=== PATIENT | male | born 1965 | race Caucasian/White ===

== ENCOUNTER 2016-09-29 13:19 | Emergency (ER) | payer BC ==
[2016-09-29 13:38] VITALS: BP 118/69
--- NOTE | 2016-09-29 14:07 | UC ---
Respiratory Complaint HPI - HPI Summary HPI Summary: 50 yo male with asthma/asa allergy and nasal polyposis presents with cough sinus pressure and pain as well as wheezing for over a week no fever chills - History of Current Complaint Chief Complaint: UCGeneralIllness Stated Complaint: SINUSES Time Seen by Provider: 09/29/16 13:48 Hx Obtained From: Patient Onset/Duration: Sudden Onset, Gradual Onset Timing: Constant Severity Initially: Moderate Pain Intensity: 3 Pain Scale Used: 0-10 Numeric Character: Cough: Productive Aggravating Factors: Nothing Alleviating Factors: Bronchodilator Associated Signs And Symptoms: Positive: Wheezing, Nasal Congestion, Sinus Discomfort - Allergies/Home Medications Allergies/Adverse Reactions: Allergies Allergy/AdvReac Type Severity Reaction Status Date / Time Amoxicillin [From Augmentin] Allergy Intermediate Hives Verified 09/29/16 13:39 Clarithromycin [From Biaxin] Allergy Intermediate Hives Verified 09/29/16 13:39 Clavulanic Acid Allergy Intermediate Hives Verified 09/29/16 13:39 [From Augmentin] Levofloxacin [From Levaquin] Allergy Intermediate tendonitis Verified 09/29/16 13:39 Aspirin AdvReac Swelling Verified 09/29/16 13:39 PMH/Surg Hx/FS Hx/Imm Hx Previously Healthy: Yes Endocrine History Of: Denies: Diabetes Cardiovascular History Of: Denies: Hypertension, Pacemaker/ICD Respiratory History Of: Reports: Asthma GI/ History Of: Denies: Renal Disease - Surgical History Surgical History: Yes Surgery Procedure, Year, and Place: sinus surgery, bilateral FESS surgeries for sinus, deviated septum, umb. hernia repair, lt shoulder surgery 07/2012; undescended testicle;LASIK - Family History Known Family History: Positive: Cardiac Disease - Social History Alcohol Use: Occasionally Substance Use Type: None Smoking Status (MU): Former Smoker - Immunization History Most Recent Influenza Vaccination: June 2016 Review of Systems Constitutional: Negative Skin: Negative Eyes: Negative ENT: Nasal Discharge Respiratory: Cough Cardiovascular: Negative Gastrointestinal: Negative Genitourinary: Negative Motor: Negative Neurovascular: Negative Musculoskeletal: Negative Neurological: Negative Psychological: Negative All Other Systems Reviewed And Are Negative: Yes Physical Exam Triage Information Reviewed: Yes Appearance: Well-Appearing, No Pain Distress, Well-Nourished Vital Signs: Initial Vital Signs Temp 97.3 F 09/29/16 13:34 Pulse 63 09/29/16 13:34 Resp 18 09/29/16 13:34 BP 118/69 09/29/16 13:34 Pulse Ox 97 09/29/16 13:34 Eyes: Positive: Conjunctiva Clear ENT: Positive: Hearing grossly normal, Nasal congestion, Nasal drainage, TMs normal, Other: - bilateral max sinus tenderness. Negative: Trismus, Muffled/ hoarse voice Dental: Negative: Dental Fracture @ Neck: Positive: Nontender, No Lymphadenopathy Respiratory: Positive: No respiratory distress, No accessory muscle use, Wheezing - with forced expiration only. Negative: Respiratory distress, Decreased breath sounds Cardiovascular: Positive: RRR, No Murmur, Pulses Normal Abdominal Exam: Normal Musculoskeletal: Positive: ROM Intact, No Edema Neurological Exam: Normal Psychological Exam: Normal Skin Exam: Normal UC Diagnostic Evaluation - Laboratory O2 Sat by Pulse Oximetry: 97 Respiratory Course/Dx - Differential Dx/Diagnosis Provider Diagnoses: acute sinusitis. bronchospasm Discharge - Discharge Plan Condition: Stable Disposition: HOME Prescriptions: DOXYcycline CAP(*) [DOXYcycline 100MG CAP(*)] 100 mg PO BID #28 cap Dexamethasone TAB* [Decadron TAB*] 4 mg PO DAILY #4 tab Patient Education Materials: Sinusitis (ED), Bronchospasm (ED) Referrals: Evan Werner MD [Primary Care Provider] - If Needed
== END 2016-09-29 14:03 | disposition home or self-care (01) ==
LOC: UCCORT 13:19
DX: J01.90 Acute sinusitis, unspecified (principal); J98.01 Acute bronchospasm; Z87.891 Personal history of nicotine dependence; Z88.1 Allergy status to other antibiotic agents; Z88.6 Allergy status to analgesic agent
CPT/HCPCS: 99212; G0463

== ENCOUNTER 2017-02-08 16:23 | Emergency (ER) | payer BC ==
[2017-02-08 16:31] VITALS: BP 124/72
--- NOTE | 2017-02-08 16:54 | UC ---
Throat Pain/Nasal Eugenio HPI - HPI Summary HPI Summary: ONE WEEK OF SINUS PRESSURE GREEN MUCUS FACIAL PRESSURE AND HEADACHE. APPOINTMENT WITH DR MALCOLM ON SUNDAY. HISTORY OF FREQUENT SINUS SURGERIES, FREQUENT SINUS INFECTIONS. NO FEVER. NO SORE THROAT. - History of Current Complaint Chief Complaint: UCRespiratory Stated Complaint: SINUS Time Seen by Provider: 02/08/17 16:27 Hx Obtained From: Patient Onset/Duration: Gradual Onset, Lasting Weeks, Still Present Severity: Moderate Cough: Nonproductive Associated Signs & Symptoms: Positive: Sinus Discomfort, Nasal Discharge - Epiglottits Risk Factors Epiglottis Risk Factors: Negative - Allergies/Home Medications Allergies/Adverse Reactions: Allergies Allergy/AdvReac Type Severity Reaction Status Date / Time Amoxicillin [From Augmentin] Allergy Intermediate Hives Verified 02/08/17 16:31 Clarithromycin [From Biaxin] Allergy Intermediate Hives Verified 02/08/17 16:31 Clavulanic Acid Allergy Intermediate Hives Verified 02/08/17 16:31 [From Augmentin] Levofloxacin [From Levaquin] Allergy Intermediate tendonitis Verified 02/08/17 16:31 Aspirin AdvReac Swelling Verified 02/08/17 16:31 PMH/Surg Hx/FS Hx/Imm Hx Previously Healthy: Yes Endocrine History Of: Denies: Diabetes Cardiovascular History Of: Denies: Hypertension, Pacemaker/ICD Respiratory History Of: Reports: Asthma GI/ History Of: Denies: Renal Disease - Surgical History Surgical History: Yes Surgery Procedure, Year, and Place: sinus surgery, bilateral FESS surgeries for sinus, deviated septum, umb. hernia repair, lt shoulder surgery 07/2012; undescended testicle;LASIK EYE SURGERY, LEFT EYE IMPLANT TO HOLD CORNEA IN PLACE (INTACS LENS IMPLANT)SCANNED INTO OTHER FACILITIES REPORTS-SPOKE TO DR LAUGHLIN, HE SAID TO GET ORBIT XRAYS TO BE SURE BUT THINKS ITS AND ACRYLIC SUBSTANCE. - Family History Known Family History: Positive: Cardiac Disease - Social History Occupation: Employed Full-time Lives: With Family Alcohol Use: Rare Substance Use Type: Marijuana Substance Use Comment - Amount & Last Used: occassionally smokes marijuana Smoking Status (MU): Never Smoked Tobacco - Immunization History Most Recent Influenza Vaccination: June 2016 Review of Systems Constitutional: Negative Skin: Negative Eyes: Negative ENT: Nasal Discharge Respiratory: Cough Cardiovascular: Negative Gastrointestinal: Negative Genitourinary: Negative Motor: Negative Neurovascular: Negative Musculoskeletal: Negative Neurological: Negative Psychological: Negative All Other Systems Reviewed And Are Negative: Yes Physical Exam Triage Information Reviewed: Yes Appearance: Well-Appearing, No Pain Distress, Well-Nourished Vital Signs: Initial Vital Signs Temp 97.7 F 02/08/17 16:26 Pulse 66 02/08/17 16:26 Resp 14 02/08/17 16:26 BP 124/72 02/08/17 16:26 Pulse Ox 98 02/08/17 16:26 Vital Signs Reviewed: Yes Eye Exam: Normal Eyes: Positive: Conjunctiva Clear ENT: Positive: Hearing grossly normal, Pharynx normal, Nasal congestion, TM bulging, TM dull Dental Exam: Normal Neck exam: Normal Neck: Positive: Supple, Nontender, No Lymphadenopathy Respiratory: Positive: Chest non-tender, Lungs clear, Normal breath sounds, No respiratory distress, No accessory muscle use, Wheezing - SCANT EXPIRATORY WHEEZING, Expiration Cardiovascular Exam: Normal Cardiovascular: Positive: RRR, No Murmur, Pulses Normal Abdominal Exam: Normal Musculoskeletal Exam: Normal Neurological Exam: Normal Psychological Exam: Normal Skin Exam: Normal Throat Pain/Nasal Course/Dx - Differential Dx/Diagnosis Differential Diagnosis/HQI/PQRI: Otitis Media, Sinusitis, Tonsillitis, URI Provider Diagnoses: SINUSITIS Discharge - Discharge Plan Condition: Stable Disposition: HOME Prescriptions: Azithromycin TAB* [Zithromax TAB (Z-ERICKA) 250 mg #6 tabs] 2 tab PO .TODAY, THEN 1 DAILY #1 ericka Methylprednisolone [Medrol Dosepak 4 MG*] 4 mg PO .SEE ERICKA INSTRUCTION #1 ericka Patient Education Materials: Sinusitis (ED) Referrals: Juan Manuel Malcolm MD [Medical Doctor] - Evan Werner MD [Primary Care Provider] -
== END 2017-02-08 17:03 | disposition home or self-care (01) ==
LOC: UCCORT 16:23
DX: J32.9 Chronic sinusitis, unspecified (principal); J45.909 Unspecified asthma, uncomplicated; Z88.1 Allergy status to other antibiotic agents; Z88.6 Allergy status to analgesic agent; F12.90 Cannabis use, unspecified, uncomplicated
CPT/HCPCS: 99212; G0463

== ENCOUNTER 2017-03-05 20:01 | Emergency (ER) | payer BC ==
[2017-03-05 20:17] VITALS: BP 128/74
[2017-03-05] MEDS ORDERED: DOXYcycline CAP(*) 100 MG PO ONE (20:43)
[2017-03-05] MEDS ORDERED: Phenazopyridine TAB* 100 MG PO ONE ×2 (20:44→20:45)
--- NOTE | 2017-03-05 20:50 | UC ---
Complaint Male HPI - HPI Summary HPI Summary: 51 yo male with urgency and frequency of urination that started this am no with dysuria no back or abd pain no f/c no n/v/d hx increased PSA needed bx all (-) - History of Current Complaint Chief Complaint: UCGU Stated Complaint: URINARY Time Seen by Provider: 03/05/17 20:28 Hx Obtained From: Patient Onset/Duration: Gradual Onset, Lasting Hours Timing: Constant Severity Initially: Mild Severity Currently: Moderate Pain Intensity: 0 - pain only with urination Pain Scale Used: 0-10 Numeric Location: Penis Character: Burning Aggravating Factor(s): Voiding Alleviating Factor(s): Nothing Associated Signs And Symptoms: Positive: Dysuria - Allergies/Home Medications Allergies/Adverse Reactions: Allergies Allergy/AdvReac Type Severity Reaction Status Date / Time Amoxicillin [From Augmentin] Allergy Intermediate Hives Verified 03/05/17 20:18 Clarithromycin [From Biaxin] Allergy Intermediate Hives Verified 03/05/17 20:18 Clavulanic Acid Allergy Intermediate Hives Verified 03/05/17 20:18 [From Augmentin] Levofloxacin [From Levaquin] Allergy Intermediate tendonitis Verified 03/05/17 20:18 Aspirin AdvReac Swelling Verified 03/05/17 20:18 PMH/Surg Hx/FS Hx/Imm Hx Previously Healthy: Yes Respiratory History: Asthma GI/ History: Gastroesophageal Reflux - Surgical History Surgical History: Yes Surgery Procedure, Year, and Place: sinus surgery, bilateral FESS surgeries for sinus, deviated septum, umb. hernia repair, lt shoulder surgery 07/2012; undescended testicle;LASIK EYE SURGERY, LEFT EYE IMPLANT (INTACS LENS IMPLANT) SCANNED INTO OTHER FACILITIES REPORTS-SPOKE TO DR LAUGHLIN, HE SAID TO GET ORBIT XRAYS TO BE SURE BUT THINKS ITS AND ACRYLIC SUBSTANCE. ( XRAYS DONE 12/27/16 - CLEARED BY DR COLON) - Family History Known Family History: Positive: Cardiac Disease - Social History Alcohol Use: Rare Substance Use Type: Marijuana Substance Use Comment - Amount & Last Used: occassionally smokes marijuana Smoking Status (MU): Never Smoked Tobacco - Immunization History Most Recent Influenza Vaccination: June 2016 Review of Systems Constitutional: Negative Skin: Negative Eyes: Negative ENT: Negative Respiratory: Negative Cardiovascular: Negative Gastrointestinal: Negative Genitourinary: Dysuria, Frequency, Urgency Motor: Negative Neurovascular: Negative Musculoskeletal: Negative Neurological: Negative Psychological: Negative All Other Systems Reviewed And Are Negative: Yes Physical Exam Triage Information Reviewed: Yes Appearance: Well-Appearing, No Pain Distress, Well-Nourished Vital Signs: Initial Vital Signs Temp 98.7 F 03/05/17 20:13 Pulse 54 03/05/17 20:13 Resp 16 03/05/17 20:13 BP 128/74 03/05/17 20:13 Pulse Ox 96 03/05/17 20:13 Vital Signs Reviewed: Yes Eyes: Positive: Conjunctiva Clear ENT: Positive: Hearing grossly normal. Negative: Nasal congestion, Nasal drainage, Trismus, Muffled/hoarse voice Neck: Positive: Supple, Nontender Respiratory: Positive: Lungs clear, Normal breath sounds, No respiratory distress, No accessory muscle use Cardiovascular: Positive: RRR, No Murmur Abdomen Description: Positive: Nontender, Soft, Other: - rectal: prostate enlarged/minimal tenderness Bowel Sounds: Positive: Present Musculoskeletal: Positive: ROM Intact, No Edema Neurological: Positive: Alert Psychological Exam: Normal Skin Exam: Normal Complaint Male Course/Dx - Differential Dx/Diagnosis Provider Diagnoses: dysuria of uncertain cause Discharge - Discharge Plan Condition: Stable Disposition: HOME Prescriptions: DOXYcycline CAP(*) [DOXYcycline 100MG CAP(*)] 100 mg PO BID #12 cap Phenazopyridine TAB* [Pyridium TAB*] 100 mg PO TID #4 tab Patient Education Materials: Dysuria (ED) Referrals: Evan Werner MD [Primary Care Provider] - 2 Days Additional Instructions: despite your symptoms your urine sample was clear a culture is pending recheck in 2-3 days with your MD or urologist recheck sooner for fever/vomiting/back pain
== END 2017-03-05 21:02 | disposition home or self-care (01) ==
LOC: UCCORT 20:01
DX: R30.0 Dysuria (principal); J45.909 Unspecified asthma, uncomplicated; K21.9 Gastro-esophageal reflux disease without esophagitis; Z88.6 Allergy status to analgesic agent; Z88.1 Allergy status to other antibiotic agents; F12.90 Cannabis use, unspecified, uncomplicated
CPT/HCPCS: 87086; 99213; A9270-GY; G0463

== ENCOUNTER 2017-03-20 07:30 | Emergency (ER) | payer BC ==
[2017-03-20 07:46] VITALS: BP 119/69
--- NOTE | 2017-03-20 07:54 | UC ---
Skin Complaint HPI - HPI Summary HPI Summary: 51 YEAR OLD MALE PRESENTS WITH COMPLAINS OF ABSCESS UNDER HIS NECK POST REMOVAL OF MOLE. - History of Current Complaint Chief Complaint: UCSkin Time Seen by Provider: 03/20/17 07:48 Stated Complaint: SKIN COMPLAINT-CHIN - Allergy/Home Medications Allergies/Adverse Reactions: Allergies Allergy/AdvReac Type Severity Reaction Status Date / Time Amoxicillin [From Augmentin] Allergy Intermediate Hives Verified 03/20/17 07:39 Clarithromycin [From Biaxin] Allergy Intermediate Hives Verified 03/20/17 07:39 Clavulanic Acid Allergy Intermediate Hives Verified 03/20/17 07:39 [From Augmentin] Levofloxacin [From Levaquin] Allergy Intermediate tendonitis Verified 03/20/17 07:39 Aspirin AdvReac Swelling Verified 03/20/17 07:39 Review of Systems Constitutional: Negative Skin: Other - ABSCESS UNDER CHIN Eyes: Negative ENT: Negative Respiratory: Negative Cardiovascular: Negative Gastrointestinal: Negative Genitourinary: Negative Motor: Negative Neurovascular: Negative Musculoskeletal: Negative Neurological: Negative Psychological: Negative All Other Systems Reviewed And Are Negative: Yes PMH/Surg Hx/FS Hx/Imm Hx - Surgical History Surgical History: Yes Surgery Procedure, Year, and Place: sinus surgery, bilateral FESS surgeries for sinus, deviated septum, umb. hernia repair, lt shoulder surgery 07/2012; undescended testicle;LASIK EYE SURGERY, LEFT EYE IMPLANT (INTACS LENS IMPLANT) SCANNED INTO OTHER FACILITIES REPORTS-SPOKE TO DR LAUGHLIN, HE SAID TO GET ORBIT XRAYS TO BE SURE BUT THINKS ITS AND ACRYLIC SUBSTANCE. ( XRAYS DONE 12/27/16 - CLEARED BY DR COLON) - Family History Known Family History: Positive: Cardiac Disease - Social History Alcohol Use: Occasionally Substance Use Type: Marijuana Substance Use Comment - Amount & Last Used: occassionally smokes marijuana Smoking Status (MU): Never Smoked Tobacco - Immunization History Most Recent Influenza Vaccination: June 2016 Physical Exam Triage Information Reviewed: Yes Vital Signs: Initial Vital Signs Temp 36.6 C 03/20/17 07:34 Pulse 51 03/20/17 07:34 Resp 14 03/20/17 07:34 BP 119/69 03/20/17 07:34 Pulse Ox 98 03/20/17 07:34 Eye Exam: Normal ENT Exam: Normal Dental Exam: Normal Neck exam: Normal Neck: Positive: 1 Respiratory Exam: Normal Cardiovascular Exam: Normal Abdominal Exam: Normal Musculoskeletal Exam: Normal Neurological Exam: Normal Psychological Exam: Normal Skin Exam: Normal Skin: Positive: Other - ABSCESS UNDER CHIN Course/Dx - Diagnoses Provider Diagnoses: ABSCESS UNDER CHIN Discharge - Discharge Plan Condition: Stable Disposition: HOME Prescriptions: DOXYcycline CAP(*) [DOXYcycline 100MG CAP(*)] 100 mg PO BID #14 cap Mupirocin 2% OINT* [Bactroban 2 % Oint*] 1 applic TOPICAL BID #1 tube Patient Education Materials: Cellulitis (ED) Referrals: Evan Werner MD [Primary Care Provider] - If Needed
== END 2017-03-20 08:00 | disposition home or self-care (01) ==
LOC: UCCORT 07:30
DX: L02.01 Cutaneous abscess of face (principal)
CPT/HCPCS: 99212; G0463

== ENCOUNTER 2017-05-18 07:04 | Emergency (ER) | payer BC ==
--- NOTE | 2017-05-18 07:10 | UC ---
Skin Complaint HPI - HPI Summary HPI Summary: 51 year old male presents with suspicion of foreign body in left index finger. On a side note the patient tried to dig it out. - History of Current Complaint Time Seen by Provider: 05/18/17 07:09 Stated Complaint: FB IN LEFT INDEX FINGER Hx Obtained From: Patient Onset/Duration: Gradual Onset Skin Exposure Onset/Duration: Days Ago Onset Severity: Moderate Current Severity: Moderate Pain Scale Used: 0-10 Numeric - 4 - Allergy/Home Medications Allergies/Adverse Reactions: Allergies Allergy/AdvReac Type Severity Reaction Status Date / Time Amoxicillin [From Augmentin] Allergy Intermediate Hives Verified 03/20/17 07:39 Clarithromycin [From Biaxin] Allergy Intermediate Hives Verified 03/20/17 07:39 Clavulanic Acid Allergy Intermediate Hives Verified 03/20/17 07:39 [From Augmentin] Levofloxacin [From Levaquin] Allergy Intermediate tendonitis Verified 03/20/17 07:39 Aspirin AdvReac Swelling Verified 03/20/17 07:39 Question of Bactrim Allergy Swelling Uncoded 05/18/17 07:38 Review of Systems Constitutional: Negative Skin: Other - LEFT INDEX FINGER SWELLING/PAIN/? FOREIGN BODY Eyes: Negative ENT: Negative Respiratory: Negative Cardiovascular: Negative Gastrointestinal: Negative Genitourinary: Negative Motor: Negative Neurovascular: Negative Musculoskeletal: Negative Neurological: Negative Psychological: Negative All Other Systems Reviewed And Are Negative: Yes PMH/Surg Hx/FS Hx/Imm Hx Previously Healthy: Yes - Surgical History Surgical History: Yes Surgery Procedure, Year, and Place: sinus surgery, bilateral FESS surgeries for sinus, deviated septum, umb. hernia repair, lt shoulder surgery 07/2012; undescended testicle;LASIK EYE SURGERY, LEFT EYE IMPLANT (INTACS LENS IMPLANT) SCANNED INTO OTHER FACILITIES REPORTS-SPOKE TO DR LAUGHLIN, HE SAID TO GET ORBIT XRAYS TO BE SURE BUT THINKS ITS AND ACRYLIC SUBSTANCE. ( XRAYS DONE 12/27/16 - CLEARED BY DR COLON) - Family History Known Family History: Positive: Cardiac Disease - Social History Alcohol Use: Occasionally Substance Use Type: Marijuana Substance Use Comment - Amount & Last Used: occassionally smokes marijuana Smoking Status (MU): Never Smoked Tobacco - Immunization History Most Recent Influenza Vaccination: June 2016 Physical Exam Triage Information Reviewed: Yes Appearance: Well-Appearing Eye Exam: Normal ENT Exam: Normal Dental Exam: Normal Neck exam: Normal Neck: Positive: 1 Respiratory Exam: Normal Cardiovascular Exam: Normal Abdominal Exam: Normal Musculoskeletal Exam: Normal Neurological Exam: Normal Psychological Exam: Normal Skin: Positive: Other - LEFT INDEX FINGER SWELLING/PAIN Course/Dx - Diagnoses Provider Diagnoses: left index finger pain. left index finger swelling Discharge - Discharge Plan Condition: Stable Disposition: HOME Prescriptions: DOXYcycline CAP(*) [DOXYcycline 100MG CAP(*)] 100 mg PO BID #14 cap Mupirocin 2% OINT* [Bactroban 2 % Oint*] 1 applic TOPICAL BID #1 tube Patient Education Materials: Soft Tissue Foreign Body (ED) Referrals: Evan Werner MD [Primary Care Provider] -
[2017-05-18] MEDS ORDERED: Lidocaine/Epineph/Tetraca SOL* (LET solution) 4 ML BTL TOPICAL ONE (07:45)
--- NOTE | 2017-05-18 08:13 | RAD ---
INDICATION: 4 body left index finger. TECHNIQUE: 3 views of the left index finger were obtained. FINDINGS: There is soft tissue swelling adjacent to the distal phalanx. No fracture or radiopaque foreign body is seen. 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 IMPRESSION: NO RADIOPAQUE FOREIGN BODY IS SEEN. IF THIS REMAINS OF CLINICAL CONCERN CONSIDER A SOFT TISSUE ULTRASOUND FOR FURTHER EVALUATION.
[2017-05-18 08:19] VITALS: BP 126/78
[2017-05-18] MEDS ORDERED: Tetan/Diph/Pertus SYR(Tdap)* 0.5 ML SYR(BOOSTRIX) use SYR IM ONE (08:27)
== END 2017-05-18 08:43 | disposition home or self-care (01) ==
LOC: UCCORT 07:04
DX: M79.645 Pain in left finger(s) (principal); M79.89 Other specified soft tissue disorders; Z88.6 Allergy status to analgesic agent; Z88.3 Allergy status to other anti-infective agents; F12.90 Cannabis use, unspecified, uncomplicated
CPT/HCPCS: 73140; 90471; 90715; 99213; G0463

== ENCOUNTER 2017-08-03 07:05 | Emergency (ER) | payer BC ==
--- NOTE | 2017-08-03 07:11 | UC ---
Eye Complaint HPI - HPI Summary HPI Summary: 51 year old male presents with complains of left eye redness and drainage. - History of Current Complaint Stated Complaint: EYE COMPLAINT Time Seen by Provider: 08/03/17 07:10 Hx Obtained From: Patient Onset/Duration: Sudden Onset Timing: Constant Severity Initially: Moderate Severity Currently: Moderate - Allergies/Home Medications Allergies/Adverse Reactions: Allergies Allergy/AdvReac Type Severity Reaction Status Date / Time Amoxicillin [From Augmentin] Allergy Intermediate Hives Verified 08/03/17 07:11 Clarithromycin [From Biaxin] Allergy Intermediate Hives Verified 08/03/17 07:11 Clavulanic Acid Allergy Intermediate Hives Verified 08/03/17 07:11 [From Augmentin] Levofloxacin [From Levaquin] Allergy Intermediate tendonitis Verified 08/03/17 07:11 Aspirin AdvReac Swelling Verified 08/03/17 07:11 Question of Bactrim Allergy Swelling Uncoded 08/03/17 07:11 PMH/Surg Hx/FS Hx/Imm Hx Previously Healthy: Yes - Surgical History Surgical History: Yes Surgery Procedure, Year, and Place: sinus surgery, bilateral FESS surgeries for sinus, deviated septum, umb. hernia repair, lt shoulder surgery 07/2012; undescended testicle;LASIK EYE SURGERY, LEFT EYE IMPLANT (INTACS LENS IMPLANT) SCANNED INTO OTHER FACILITIES REPORTS-SPOKE TO DR LAUGHLIN, HE SAID TO GET ORBIT XRAYS TO BE SURE BUT THINKS ITS AND ACRYLIC SUBSTANCE. ( XRAYS DONE 12/27/16 - CLEARED BY DR COLON) - Family History Known Family History: Positive: Cardiac Disease - Social History Alcohol Use: Occasionally Substance Use Type: None Substance Use Comment - Amount & Last Used: occassionally smokes marijuana Smoking Status (MU): Never Smoked Tobacco - Immunization History Most Recent Influenza Vaccination: June 2016 Most Recent Tetanus Shot: 05/18/17 Review of Systems Constitutional: Negative Skin: Negative Eyes: Eye Redness, Photophobia ENT: Negative Respiratory: Negative Cardiovascular: Negative Gastrointestinal: Negative Genitourinary: Negative Motor: Negative Neurovascular: Negative Musculoskeletal: Negative Neurological: Negative Psychological: Negative All Other Systems Reviewed And Are Negative: Yes Physical Exam Triage Information Reviewed: Yes Vital Signs Reviewed: Yes Eyes: Positive: Conjunctiva Inflamed, Discharge ENT Exam: Normal Dental Exam: Normal Neck exam: Normal Neck: Positive: 1 Respiratory Exam: Normal Cardiovascular Exam: Normal Abdominal Exam: Normal Musculoskeletal Exam: Normal Neurological Exam: Normal Psychological Exam: Normal Skin Exam: Normal Eye Complaint Course/Dx - Differential Dx/Diagnosis Provider Diagnoses: left eye conjunctivitis Discharge - Discharge Plan Condition: Stable Disposition: HOME Prescriptions: Naphazoline W/ Pheniramine [Opcon-A] 1 john LEFT EYE . DIRECTED PRN #1 bottle PRN Reason: Allergy Symptoms Polymyx/Trimethoprim OPTH* [Polytrim OPHTH*] 1 drop BOTH EYES Q6H #1 btl Patient Education Materials: Conjunctivitis (ED) Referrals: Nato Cochran MD [Medical Doctor] - Evan Werner MD [Primary Care Provider] -
[2017-08-03 07:15] VITALS: BP 118/74
== END 2017-08-03 07:25 | disposition home or self-care (01) ==
LOC: UCCORT 07:05
DX: H10.9 Unspecified conjunctivitis (principal)
CPT/HCPCS: 99212; G0463

== ENCOUNTER 2017-08-29 10:35 | Emergency (ER) | payer BC ==
--- NOTE | 2017-08-29 13:01 | UC ---
Complaint Male HPI - HPI Summary HPI Summary: Pt c/o of frequency, urgency, and dysuria that began last week, pt was seen in [facility] ER and given doxycycline and notes improvement in symptoms. Pt states that frequency, urgency and dysuria have not resolved. - History of Current Complaint Hx Obtained From: Patient Onset/Duration: Gradual Onset, Lasting Days, Still Present Timing: Constant Severity Initially: Mild Severity Currently: Mild Location: None Character: Burning Aggravating Factor(s): Voiding Associated Signs And Symptoms: Positive: Dysuria - Risk Factors Testicular Torsion: Negative <Loreta Felipe NP - Last Filed: 08/29/17 13:25> <Alexus Palafox - Last Filed: 08/29/17 14:44> - History of Current Complaint Chief Complaint: UCGU Stated Complaint: URINARY Time Seen by Provider: 08/29/17 12:01 - Allergies/Home Medications Allergies/Adverse Reactions: Allergies Allergy/AdvReac Type Severity Reaction Status Date / Time Amoxicillin [From Augmentin] Allergy Intermediate Hives Verified 08/03/17 07:11 Clarithromycin [From Biaxin] Allergy Intermediate Hives Verified 08/29/17 12:33 Clavulanic Acid Allergy Intermediate Hives Verified 08/03/17 07:11 [From Augmentin] Levofloxacin [From Levaquin] Allergy Intermediate tendonitis Verified 08/03/17 07:11 Ibuprofen Allergy Unknown Verified 08/29/17 12:34 Reaction Details Aspirin AdvReac Congestion Verified 08/29/17 12:33 Question of Bactrim Allergy Swelling Uncoded 08/29/17 12:33 PMH/Surg Hx/FS Hx/Imm Hx Previously Healthy: Yes GI/ History: Kidney Stones, Other - BHP Other GI/ History: UTI, prostatitis - Surgical History Surgical History: Yes Surgery Procedure, Year, and Place: sinus surgery, bilateral FESS surgeries for sinus, deviated septum, umb. hernia repair, lt shoulder surgery 07/2012; undescended testicle;LASIK EYE SURGERY, right EYE IMPLANT (INTACS LENS IMPLANT) SCANNED INTO OTHER FACILITIES REPORTS-SPOKE TO DR LAUGHLIN, HE SAID TO GET ORBIT XRAYS TO BE SURE BUT THINKS ITS AND ACRYLIC SUBSTANCE. ( XRAYS DONE 12/27/16 - CLEARED BY DR COLON) - Family History Known Family History: Positive: Cardiac Disease - Social History Occupation: Employed Full-time Lives: With Family Alcohol Use: Occasionally Substance Use Type: None Substance Use Comment - Amount & Last Used: occassionally smokes marijuana Smoking Status (MU): Never Smoked Tobacco Have You Smoked in the Last Year: No - Immunization History Most Recent Influenza Vaccination: June 2016 Most Recent Tetanus Shot: 05/18/17 Vaccination Up to Date: No <Loreta Felipe NP - Last Filed: 08/29/17 13:25> Review of Systems Constitutional: Negative Skin: Negative Eyes: Negative ENT: Negative Respiratory: Negative Cardiovascular: Negative Gastrointestinal: Negative Genitourinary: Dysuria, Frequency, Urgency Motor: Negative Neurovascular: Negative Musculoskeletal: Negative Neurological: Negative Psychological: Negative Is Patient Immunocompromised?: No All Other Systems Reviewed And Are Negative: Yes <Loreta Felipe NP - Last Filed: 08/29/17 13:25> Physical Exam Triage Information Reviewed: Yes Appearance: Well-Appearing Vital Signs: Initial Vital Signs Temp 98.3 F 08/29/17 12:12 Pulse 66 08/29/17 12:12 Resp 18 08/29/17 12:12 BP 130/76 08/29/17 12:12 Vital Signs Reviewed: Yes Eye Exam: Normal ENT Exam: Normal Neck exam: Normal Respiratory Exam: Normal Cardiovascular Exam: Normal Abdominal Exam: Normal Abdomen Description: Positive: Nontender Musculoskeletal Exam: Normal Neurological Exam: Normal Psychological Exam: Normal Skin Exam: Normal <Loreta Felipe NP - Last Filed: 08/29/17 13:25> Vital Signs: Initial Vital Signs Temp 98.3 F 08/29/17 12:12 Pulse 66 08/29/17 12:12 Resp 18 08/29/17 12:12 BP 130/76 08/29/17 12:12 <Alexus Palafox - Last Filed: 08/29/17 14:44> Complaint Male Course/Dx - Course Course Of Treatment: I disucssed with the pt the need to follow up with his Urologist and pCP. Additonally, I discussed the results of the UA done at today 's visit. - Differential Dx/Diagnosis Differential Diagnosis/HQI/PQRI: Prostatitis, Urinary Tract Infection, Other - dysuria, urethritis Provider Diagnoses: dysuria <Loreta Felipe NP - Last Filed: 08/29/17 13:25> Discharge <Loreta Felipe NP - Last Filed: 08/29/17 13:25> <Alexus Palafox - Last Filed: 08/29/17 14:44> - Discharge Plan Condition: Stable Disposition: HOME Prescriptions: Phenazopyridine TAB* [Pyridium 100 mg TAB*] 100 mg PO Q8H #6 tab Patient Education Materials: Dysuria (ED) Referrals: Keshia Bailey MD [Medical Doctor] - 09/03/17 Evan Werner MD [Medical Doctor] - If Needed Additional Instructions: Please follow up with your urologist as scheduled. Please return to clinic as needed. Attestation Statement User Type: Provider - I was available for consult. This patient was seen by the SHAYNE. The patient was not presented to, seen by, or examined by me. -Gregory <Alexus Palafox - Last Filed: 08/29/17 14:44>
[2017-08-29 13:09] VITALS: BP 130/76
== END 2017-08-29 13:36 | disposition home or self-care (01) ==
LOC: UCCORT 10:35
DX: R30.0 Dysuria (principal)
CPT/HCPCS: 81003; 87086; 87491; 87591; 99212; G0463

== ENCOUNTER 2018-07-02 17:35 | Emergency (ER) | payer BC ==
--- OUTSIDE RECORDS SUMMARY | 2018-07-02 18:24 | XMS REPORT | Continuity of Care Document ---
:1965 External Reference #:[id number] Author Name Evan Werner M.D. Address [address] [place] [address] Care Team Providers Name Role Phone Evan Werner M.D. Primary Care Physician Unavailable Payers Type Date Identification Numbers Payment Provider Subscriber Effective: 2012 Policy Number: [id number] / [facility] [employer] Elzbieta Pelayo PayID: [id number] [address] [address] [place] [address] Advance Directives Description No Information Available Problems Date Description Provider Status Onset: 08/15/2011 Hyperlipidemia Evan Werner M.D. Active Onset: 08/29/2011 Impotence of organic origin Evan Werner M.D. Active Note: Low Testosterone based Onset: 08/29/2011 Backache Jerri Goyal, LOSS PREVENTION SPECIALIST Active Onset: 08/29/2011 Asthma without status asthmaticus Evan Werner M.D. Active Onset: 08/29/2011 Low back pain Evan Werner M.D. Active Onset: 06/24/2015 Chronic recurrent sinusitis Evan Werner M.D. Active Onset: 06/24/2015 Gastroesophageal reflux disease Evan Werner M.D. Active Family History Date Family Member(s) Problem(s) Comments Father Lung Cancer . Mother No Current Problems Social History Type Date Description Comments Sex Unknown Marital Status Legal Status: Lives With Spouse Work Status Full-Time Employment ETOH Use Occasionally consumes alcohol Tobacco Use Reviewed: 06/06/17 Patient has never smoked Smoking Status Reviewed: 06/26/18 Patient has never smoked Allergies, Adverse Reactions, Alerts Date Description Reaction Status Severity Comments 08/15/2011 Penicillin Active 08/15/2011 Augmentin Active 08/15/2011 Cefzil Active 08/15/2011 Bactrim Active 08/15/2011 Sulfa Antibiotics Active 08/15/2011 Cefzil Inactive Medications Medication Date Status Form Strength Qnty SIG Indications Ordering Provider Ventolin HFA Active Aerosol 108(90Bas Unknown / e) mcg/ac Sodium Active Solution 0.9% Unknown Chloride Aspirin Low Active Chewtabs 81mg 1 / day Unknown Dose Adult /0000 Mometasone Active Suspension 50mcg/Act 2 sprays Tejas Malcolm Furoate twice a an Fernando, M.DReggie Doxazosin 07/18 Hx Tablets 2mg 90tab 1 by mouth I10 Evan Mes s every day Clara Werner M.D. 05/28 Magnesium 07/18 Hx Tablets 400mg 30tab 1 daily R25.2 Clara Ndiaye M.D. 05/28 Omeprazole 02/[address] 20mg 60cap 1 by mouth s bid Clara Werner M.D. 02/28 Mirapex 09/07 Hx Tablets 0.125mg 30tab 1 tablet G25.81 s 2-3 hours Clara Werner MLuisa 02/21 Omeprazole 03/[address] 40mg 30cap 1 by mouth 530.81 s b.i.d Clara Werner M.D. 06/14 Dicyclomine 08/15 Hx Tablets 20mg Evan Clara Werner M.D. 08/29 Prilosec 08/[address] 20mg Evan Clara Werner M.D. 04/01 Lovaza Hx Capsules 1gm 90cap 1 tid Clara Ndiaye M.D. 04/01 Veramyst Hx Suspension 27.5mcg/S Tejas Malcolm pray Clara Mueller M.D. 04/01 Pravastatin 00/00 Hx Tablets 20mg 90tab take 1 Evan Sodium /0000 s tablet by Werner, - mouth once M.D. 04/01 Lovaza 00 Hx Capsules 1gm 270ca take 1 Evan /0000 ps capsule Werner, - three M.D. 04/01 times day Androgel Pump 00 Hx Gel 20.25mg/A Unknown /0000 ct - (1.62%) 09/07 Fluticasone Hx Suspension 50mcg/Act Unknown Propionate /0000 - 02/28 Dymista Hx Suspension 137-50mcg 1 spray ea Unknown / /Act nares 1 - time daily 06/[address] 40mg Unknown Sodium / - 02/21 Doxycycline Hx Capsules 100mg take 2 Unknown Hyclate / days - before 07/07 and 28 days upon returning Azelastine HCL Hx Solution 0.1% Unknown (Nasal) / - 02/28 Naproxen Hx Tablets 500mg Unknown / - 02/28 Mupirocin Hx Ointment 2% Unknown / - 02/28 Advair HFA Hx Aerosol 230-21mcg 2 puff / 2 Nelson, / /Act day Olivier Elizabeth MD 06/26 Immunizations CPT Code Status Date Vaccine Lot # [id number] Given 02/25/2018 Tdap Vaccine over 7 yrs old 27203 Given 10/16/2017 Influenza Vac,Quad,Split=>3 Yrs 82751 Given 06/26/2016 Influenza Vac,Quad,Split=>3 Yrs 84110 Given 07/18/2015 Influenza Vac,Quad,Split=>3 Yrs 89441 Given 06/29/2014 Flu Triv Old Code 20233 Given 07/12/2013 Flu Triv Old Code 97629 Given 07/22/2010 Pneumovax PPSV-23 96245 Given 07/22/2010 Tdap Vaccine over 7 yrs old Vital Signs Date Vital Result Comment 06/26/2018 11:39am Weight 184.00 lb BP Systolic 136 mmHg BP Diastolic 88 mmHg Height 67 inches 5'7" BMI (Body Mass Index) 28.8 kg/m2 06/06/2017 3:04pm Weight 191.00 lb BP Systolic 128 mmHg BP Diastolic 80 mmHg Height 67.25 inches 5'7.25" Heart Rate 60 /min Respiratory Rate 16 /min BMI (Body Mass Index) 29.7 kg/m2 07/18/2016 3:53pm Weight 189.00 lb BP Systolic 110 mmHg BP Diastolic 88 mmHg 06/05/2016 3:04pm Weight 189.50 lb BP Systolic 128 mmHg BP Diastolic 92 mmHg Height 67.50 inches 5'7.50" Heart Rate 68 /min Body Temperature 98.5 F Respiratory Rate 16 /min BMI (Body Mass Index) 29.2 kg/m2 02/22/2016 3:51pm Weight 196.00 lb BP Systolic 132 mmHg BP Diastolic 98 mmHg 09/07/2015 9:27am Weight 200.00 lb BP Systolic 128 mmHg BP Diastolic 72 mmHg 07/07/2015 3:49pm Weight 198.00 lb BP Systolic 130 mmHg BP Diastolic 80 mmHg 06/24/2015 4:07pm Weight 200.50 lb BP Systolic 126 mmHg BP Diastolic 88 mmHg 05/26/2015 2:59pm Weight 199.00 lb BP Systolic 122 mmHg BP Diastolic 70 mmHg Height 67.55 inches 5'7.55" Heart Rate 72 /min Body Temperature 98.2 F O2 % BldC Oximetry 96 % BMI (Body Mass Index) 30.7 kg/m2 11/24/2014 3:46pm Weight 202.50 lb BP Systolic 118 mmHg BP Diastolic 84 mmHg 10/27/2014 4:29pm Weight 202.00 lb BP Systolic 130 mmHg BP Diastolic 80 mmHg 07/30/2014 3:39pm Weight 201.50 lb BP Systolic 148 mmHg BP Diastolic 88 mmHg 06/24/2014 11:16am Weight 199.00 lb BP Systolic 132 mmHg BP Diastolic 84 mmHg 06/05/2014 9:59am Weight 196.50 lb BP Systolic 128 mmHg BP Diastolic 86 mmHg Heart Rate 56 /min 04/29/2014 4:00pm Weight 196.00 lb BP Systolic 142 mmHg BP Diastolic 82 mmHg Height 67 inches 5'7" Heart Rate 64 /min Body Temperature 98.0 F Respiratory Rate 16 /min BMI (Body Mass Index) 30.7 kg/m2 08/29/2011 10:26am Weight 190.50 lb BP Systolic 128 mmHg consumed lg. coffee/ rushing this a.m. BP Diastolic 90 mmHg consumed lg. coffee/ rushing this a.m. Results Test Date Facility Test Result H/L Range Note Urinalysis With 08/26/2017 [facility] Urine Color YELLOW Yellow 1 Microscopic [phone] Urine Clarity CLEAR Clear Urine Glucose - Dipstick NEGATIVE mg/dL Negative Urine Bilirubin - Dipstick NEGATIVE Negative Urine Ketone NEGATIVE mg/dL Negative Urine Specific Hess[place] <=1.005 Low 1.010-1.030 Urine Blood NEGATIVE Negative Urine PH 6.0 Low 6.5-7.5 Urine Protein - Dipstick NEGATIVE mg/dL Negative Urine Urobilinogen - Dipstick 0.2 E.U./dL 0.2-1.0 Urine Nitrite - Dipstick NEGATIVE Negative Urine Leuk Esterase TRACE Negative Urine RBC NONE SEEN rbc/hpf 0-2 Urine WBC 0-2 wbc/hpf 0-7 Urine Epithelial Cells VERY FEW /lpf None Seen Urine Bacteria VERY FEW None Seen Source: URINE, CLEAN CAT <SEE NOTE> 2 Comprehensive Metabolic Panel 08/26/2017 [facility] Glucose 87 mg/dL 74-106 [phone] BUN 10 mg/dL 7-18 Creatinine 0.9 mg/dL 0.6-1.3 Glom Filtration Rate, Estimate >60 mL/min >60 If >60 mL/min >60 3 BUN/Creat 11.1 ratio Sodium 139 mmol/L 136-145 Potassium 3.6 mmol/L 3.5-5.1 Chloride 102 mmol/L 98-107 Carbon Dioxide 30 mmol/L 21-32 Anion Gap 7 mEq/L Low 8-16 Calcium 8.5 mg/dL 8.5-10.1 Total Protein 6.9 g/dL 6.4-8.2 Albumin 3.3 g/dL Low 3.4-5.0 Globulin 3.6 g/dL 1.9-4.3 Alb/Glob 0.9 ratio Bilirubin,Total 0.4 mg/dL 0.2-1.0 Sgot/Ast 14 U/L Low 15-37 4 SGPT/Alt 35 U/L 12-78 Alkaline Phosphatase 53 U/L 45-117 CBS W/Automated 08/26/2017 [facility] White Blood 15.4 K/uL High 3.4-10.5 Diff [phone] Count Red Blood Count 4.80 M/uL 4.20-5.80 Hemoglobin 14.2 gm/dL 12.8-17.0 Hematocrit 41.5 % 38.0-48.0 Mean Cell Volume 86.5 fl 80.0-96.0 Mean Corpuscular HGB 29.6 pg 27.0-33.0 Mean Corpuscular HGB Conc 34.2 g/dL 31.7-36.0 Platelet Count 378 K/uL High 155-360 Red Cell Distri Width SD 38.2 fl 36-51 Red Cell Distri Width %CV 12.3 % 11.6-15.8 Mean Platelet Volume 8.5 fL 6.6-10.6 Neut% 76.6 % High 33.0-73.0 Lymph % 11.7 % Low 20.0-42.0 Nicollet % 10.7 % High 0.0-10.0 Eo% 0.8 % 0.0-6.6 Bas% 0.2 % 0.0-1.1 Neut# 11.82 K/uL High 1.8-7.0 Lymph # 1.81 K/uL 1.0-4.0 Nicollet # 1.65 K/uL High 0.0-0.8 Eos # 0.12 K/uL 0.0-0.5 Baso # 0.03 K/uL 0.0-0.1 Slide Review 08/26/2017 [facility] Slide Review (SEE NOTE) 5 [phone] Blood Culture 08/15/2017 [facility] Blood Culture NO GROWTH: FINAL 6, 7 [phone] Aerobic <SEE NOTE> Blood Culture Anaerobic NO GROWTH: FINAL <SEE NOTE> 8 Blood Culture 08/15/2017 [facility] Blood Culture NO GROWTH: FINAL 9 [phone] Aerobic <SEE NOTE> Blood Culture Anaerobic NO GROWTH: FINAL <SEE NOTE> 10 Lactic Acid 08/15/2017 [facility] Lactic Acid 2.0 mmol/L High 0.4- 1.9 11 [phone] Lab Reflex >2.0 for Sepsis? Y Laboratory test finding 08/15/2017 [facility] CK 132 U/L 39-308 [phone] Troponin-I < 0.015 ng/mL 12 Comprehensive Metabolic 08/15/2017 [facility] Glucose 106 mg/dL 74 -106 Panel [phone] BUN 17 mg/dL 7-18 Creatinine 1.1 mg/dL 0.6-1.3 Glom Filtration Rate, Estimate >60 mL/min >60 If >60 mL/min >60 13 BUN/Creat 15.4 ratio Sodium 138 mmol/L 136-145 Potassium 3.6 mmol/L 3.5-5.1 Chloride 104 mmol/L 98-107 Carbon Dioxide 26 mmol/L 21-32 Anion Gap 8 mEq/L 8-16 Calcium 8.2 mg/dL Low 8.5-10.1 Total Protein 7.2 g/dL 6.4-8.2 Albumin 3.6 g/dL 3.4-5.0 Globulin 3.6 g/dL 1.9-4.3 Alb/Glob 1.0 ratio Bilirubin,Total 0.4 mg/dL 0.2-1.0 Sgot/Ast 16 U/L 15-37 SGPT/Alt 41 U/L 12-78 Alkaline Phosphatase 48 U/L 45-117 CBS W/Automated Diff 08/15/2017 [facility] White Blood 7.0 K/uL 3.4-10.5 [phone] Count Red Blood Count 5.45 M/uL 4.20-5.80 Hemoglobin 16.2 gm/dL 12.8-17.0 Hematocrit 47.1 % 38.0-48.0 Mean Cell Volume 86.4 fl 80.0-96.0 Mean Corpuscular HGB 29.7 pg 27.0-33.0 Mean Corpuscular HGB Conc 34.4 g/dL 31.7-36.0 Platelet Count 200 K/uL 150-400 Red Cell Distri Width SD 40.4 fl 36-51 Red Cell Distri Width %CV 13.0 % 11.6-15.8 Mean Platelet Volume 9.2 fL 6.6-10.6 Neut% 79.6 % High 33.0-73.0 Lymph % 10.1 % Low 20.0-42.0 Nicollet % 9.9 % 0.0-10.0 Eo% 0.3 % 0.0-6.6 Bas% 0.1 % 0.0-1.1 Neut# 5.57 K/uL 1.8-7.0 Lymph # 0.71 K/uL Low 1.0-4.0 Nicollet # 0.69 K/uL 0.0-0.8 Eos # 0.02 K/uL 0.0-0.5 Baso # 0.01 K/uL 0.0-0.1 Influenza A/B 08/15/2017 [facility] Influenza A Negative (Negative ) Antigen [phone] Antigen Influenza B Antigen POSITIVE (Negative) 14 Ua RFX Micro & Culture II 08/15/2017 [facility] Urine Color YELLOW Yellow [phone] Urine Clarity CLEAR Clear Urine Glucose - Dipstick NEGATIVE mg/dL Negative Urine Bilirubin - Dipstick NEGATIVE Negative Urine Ketone NEGATIVE mg/dL Negative Urine Specific [place] 1.015 1.010-1.030 Urine Blood NEGATIVE Negative Urine PH 8.5 High 6.5-7.5 Urine Protein - Dipstick TRACE mg/dL Negative Urine Urobilinogen - Dipstick 0.2 E.U./dL 0.2-1.0 Urine Nitrite - Dipstick NEGATIVE Negative Urine Leuk Esterase NEGATIVE Negative Source: URINE, CLEAN CAT <SEE NOTE> 15 Laboratory test 06/12/2017 [facility] Prostate 1.66 ng/mL < 4.0 16, 17 finding [phone] Specific Antigen CBC 06/12/2017 [facility] White Blood 4.9 K/uL 3.4-10.5 [phone] Count Red Blood Count 5.36 M/uL 4.20-5.80 Hemoglobin 16.0 gm/dL 12.8-17.0 Hematocrit 46.3 % 38.0-48.0 Mean Cell Volume 86.4 fl 80.0-96.0 Mean Corpuscular HGB 29.9 pg 27.0-33.0 Mean Corpuscular HGB Conc 34.6 g/dL 31.7-36.0 Platelet Count 269 K/uL 150-400 Red Cell Distri Width %CV 13.0 % 11.6-15.8 Mean Platelet Volume 9.6 fL 6.6-10.6 Basic Metabolic Panel 06/12/2017 [facility] Glucose 78 mg/dL 74- 106 [phone] BUN 16 mg/dL 7-18 Creatinine 0.9 mg/dL 0.6-1.3 Glom Filtration Rate, Estimate >60 mL/min >60 If >60 mL/min >60 18 BUN/Creat 17.7 ratio Sodium 143 mmol/L 136-145 Potassium 3.7 mmol/L 3.5-5.1 Chloride 108 mmol/L High 98-107 Carbon Dioxide 31 mmol/L 21-32 Anion Gap 4 mEq/L Low 8-16 Calcium 9.1 mg/dL 8.5-10.1 LDL Cholesterol Profile 06/12/2017 [facility] Cholesterol 196 mg/dL <200 19 [phone] Triglycerides 196 mg/dL High <150 20 HDL Cholesterol 48 mg/dL >40 21 LDL-Cholesterol 109 mg/dL < 100 22 Laboratory test finding 06/12/2017 [facility] CK 130 U/L 39-308 [phone] Hepatitis C Antibody 0.1 s/corat 0.0-0.9 23 CBS W/Automated Diff 05/26/2017 [facility] White Blood 6.7 K/uL 3.4-10.5 24 [phone] Count Red Blood Count 5.80 M/uL 4.20-5.80 Hemoglobin 17.1 gm/dL High 12.8-17.0 Hematocrit 49.7 % High 38.0-48.0 Mean Cell Volume 85.7 fl 80.0-96.0 Mean Corpuscular HGB 29.5 pg 27.0-33.0 Mean Corpuscular HGB Conc 34.4 g/dL 31.7-36.0 Platelet Count 259 K/uL 150-400 Red Cell Distri Width SD 40.6 fl 36-51 Red Cell Distri Width %CV 13.1 % 11.6-15.8 Mean Platelet Volume 8.7 fL 6.6-10.6 Neut% 56.1 % 33.0-73.0 Lymph % 33.0 % 20.0-42.0 Nicollet % 5.8 % 0.0-10.0 Eo% 4.5 % 0.0-6.6 Bas% 0.6 % 0.0-1.1 Neut# 3.78 K/uL 1.8-7.0 Lymph # 2.22 K/uL 1.0-4.0 Nicollet # 0.39 K/uL 0.0-0.8 Eos # 0.30 K/uL 0.0-0.5 Baso # 0.04 K/uL 0.0-0.1 Comprehensive Metabolic Panel 05/26/2017 [facility] Glucose 99 mg/dL 74-106 [phone] BUN 19 mg/dL High 7-18 Creatinine 1.2 mg/dL 0.6-1.3 Glom Filtration Rate, Estimate >60 mL/min >60 If >60 mL/min >60 25 BUN/Creat 15.8 ratio Sodium 144 mmol/L 136-145 Potassium 3.5 mmol/L 3.5-5.1 Chloride 109 mmol/L High 98-107 Carbon Dioxide 28 mmol/L 21-32 Anion Gap 7 mEq/L Low 8-16 Calcium 9.2 mg/dL 8.5-10.1 Total Protein 7.5 g/dL 6.4-8.2 Albumin 4.1 g/dL 3.4-5.0 Globulin 3.4 g/dL 1.9-4.3 Alb/Glob 1.2 ratio Bilirubin,Total 0.6 mg/dL 0.2-1.0 Sgot/Ast 14 U/L Low 15-37 26 SGPT/Alt 43 U/L 12-78 Alkaline Phosphatase 60 U/L 45-117 [facility] [facility] ? mol/L 16-53 27, 28 finding [phone] Lactic Acid 1.3 mmol/L 0.5-2.0 29 [facility] test [facility] [facility] [address] Ammon[facility] 148 ? mol/L High 16-53 30, 31 finding [phone] Lactic Acid 6.1 mmol/L High 0.5-2.0 32 [facility] test [facility]/[address] [facility] [facility] [address] [facility]mon[facility] 150 ? mol/L High 16-53 33, 34 finding [phone] Lactic Acid 5.7 mmol/L High 0.5-2.0 35 [facility] test [facility] [facility] [facility] [address] Ammon[facility] 147 ? mol/L High 16-53 36, 37 finding [phone] Lactic Acid 4.8 mmol/L High 0.5-2.0 38 [facility] test [facility] [facility] Ammon[facility] 148 ? mol/L High 16-53 39, 40 finding [phone] Lactic Acid 5.2 mmol/L High 0.5-2.0 41 [facility] test [facility]/09/[address] [facility] Ammonia 147 ? mol/L High 16-53 42, 43 finding [phone] Lactic Acid 5.4 mmol/L High 0.5-2.0 44 Routine Culture 03/20/2017 [facility] Gram Stain NO ORGANISMS SEE 45, 46 W/ Gram Stain [phone] <SEE NOTE> Gram Stain MODERATE WHITE B <SEE NOTE> 47 Aerobic Culture PASTURELLA SPECI <SEE NOTE> 48 Quantity FEW Aerobic Culture MIXED SKIN JONATHAN 49 Quantity FEW [facility] test [facility] [facility] Urine Culture And SEE RESULT 50, 51 finding [phone] Sensitivities BELOW Homocyst(E)Ine, 06/15/2016 [facility] Homocyst(e)ine, 11.9 0.0- 52, 53 P/S [phone] P/S umol/L 15.0 @[facility] Pat Id: [id number] @[facility] Req #: [id number] C-Reactive 06/15/2016 [facility] C-Reactive < 2.9 mg/L <3.0 Protein,Quant [phone] Protein,Quant @[facility] Pat Id: [id number] @[facility] Req #: [id number] Is Patient Fasting? Fasting LDL Cholesterol Profile 06/15/2016 [facility] Cholesterol 193 mg/dL <200 54 [phone] Triglycerides 131 mg/dL <150 55 HDL Cholesterol 47 mg/dL >40 56 LDL-Cholesterol 120 mg/dL < 100 57 @[facility] Pat Id: [id number] @[facility] Req #: [id number] Is Patient Fasting? Fasting Comprehensive Metabolic Panel 06/15/2016 [facility] Glucose 90 mg/dL 74-106 [phone] BUN 19 mg/dL High 7-18 Creatinine 0.9 mg/dL 0.6-1.3 Glom Filtration Rate, Estimate >60 mL/min >60 If >60 mL/min >60 58 BUN/Creat 21.1 ratio Sodium 141 mmol/L 136-145 Potassium 3.9 mmol/L 3.5-5.1 Chloride 108 mmol/L High 98-107 Carbon Dioxide 25 mmol/L 21-32 Anion Gap 8 mEq/L 8-16 Calcium 8.6 mg/dL 8.5-10.1 Total Protein 7.1 g/dL 6.4-8.2 Albumin 3.7 g/dL 3.4-5.0 Globulin 3.4 g/dL 1.9-4.3 Alb/Glob 1.1 ratio Bilirubin,Total 0.6 mg/dL 0.2-1.0 Sgot/Ast 17 U/L 15-37 SGPT/Alt 55 U/L 12-78 Alkaline Phosphatase 54 U/L 45-117 @[facility] Pat Id: [id number] @[facility] Req #: [id number] Is Patient Fasting? Fasting Glycohemoglobin A1c 06/15/2016 [facility] Glycohemoglobin 5.6 % 4.2-6.3 59 [phone] (A1c) eAG 114 mg/dL @[facility] Pat Id: [id number] @[facility] Req #: [id number] CBC 06/15/2016 [facility] White Blood Count 6.5 K/uL 3.4-10.5 [phone] Red Blood Count 5.52 M/uL 4.20-5.80 Hemoglobin 16.3 gm/dL 12.8-17.0 Hematocrit 47.9 % 38.0-48.0 Mean Cell Volume 86.8 fl 80.0-96.0 Mean Corpuscular HGB 29.5 pg 27.0-33.0 Mean Corpuscular HGB Conc 34.0 g/dL 31.7-36.0 Platelet Count 281 K/uL 150-400 Red Cell Distri Width %CV 12.7 % 11.6-15.8 Mean Platelet Volume 9.2 fL 6.6-10.6 @[facility] Pat Id: [id number] @[facility] Req #: [id number] Hepatitis C 06/15/2016 [facility] Hepatitis C Nonreactive Nonreactive Antibody [phone] Antibody Signal/Cutoff ratio < 0.02 <0.80 60 @[facility] Pat Id: [id number] @[facility] Re #: [id number] Laboratory test finding 08/24/2015 [facility] CK 307 U/L 39-308 [phone] Thyroxine (T4) 8.7 g/dL 4.7-13.5 Thyroid Stim Hormone 1.13 uIU/mL 0.36-3.74 Rheumatoid Factor Screen < 10.0 IU/mL 0.0-15.0 Antinuclear Antibodies, Ifa Negative . 61 Laboratory test 08/20/2015 [facility] Transferrin 316 mg/dL 200- 370 62 finding [phone] Ferritin 52 ng/mL 26-388 Serum Iron 126 g/dL 65-175 63 CBC W/Automated Diff 07/02/2015 [facility] White Blood 6.5 K/uL 3.4-10.5 [phone] Count Red Blood Count 5.59 M/uL 4.20-5.80 Hemoglobin 17.1 gm/dL High 12.8-17.0 Hematocrit 48.6 % High 38.0-48.0 Mean Cell Volume 86.9 fl 80.0-96.0 Mean Corpuscular HGB 30.6 pg 27.0-33.0 Mean Corpuscular HGB Conc 35.2 g/dL 31.7-36.0 Platelet Count 280 K/uL 150-400 Red Cell Distri Width SD 39.8 fl 36-51 Red Cell Distri Width %CV 12.6 % 11.6-15.8 Mean Platelet Volume 9.1 fL 6.6-10.6 Neut% 69.5 % 33.0-73.0 Lymph % 22.1 % 17.0-56.0 Nicollet % 5.6 % 0.0-10.0 Eo% 1.7 % 0.0-5.0 Bas% 1.1 % High 0.1-1.0 Neut# 4.49 K/uL 1.8-7.0 Lymph # 1.43 K/uL Low 1.8-7.0 Nicollet # 0.36 K/uL 0.0-0.8 Eos # 0.11 K/uL 0.0-0.5 Baso # 0.07 K/uL Low 0.1-0.2 Iron-Tibc-%Sat 07/02/2015 [facility] Serum Iron 97 g/dL 65-175 [phone] Total Iron Binding Capacity 394 g/dL 250-450 Transferrin %Saturation 25 % 12-57 Laboratory test finding 07/02/2015 [facility] Ferritin 89 ng/mL 26 -388 [phone] Vitamin B12 And Folate 07/02/2015 [facility] Vitamin B12 453 pg/mL 193-986 [phone] Folic Acid 16.0 ng/mL 3.1-17.5 Laboratory test 07/02/2015 [facility] Vitamin B6 14.0 ug/L 5.3- 46.7 64 finding [phone] C-Reactive Protein,Cardiac 1.14 mg/L <3.0 Sedimentation Rate 1 mm/hr 0-20 LDL Cholesterol Profile 06/21/2015 [facility] Cholesterol 201 mg/dL < 200 65 [phone] Triglycerides 158 mg/dL < 150 66 HDL Cholesterol 37 mg/dL > 40 67 LDL-Cholesterol 132 mg/dL < 100 68 Laboratory 06/21/2015 [facility] Homocyst(E)Ine, 12.3 0.0-15.0 69 test finding [phone] Plasma umol/L CBC 06/21/2015 [facility] White Blood Count 4.9 K/uL 3.4-10.5 [phone] Red Blood Count 5.40 M/uL 4.20-5.80 Hemoglobin 16.5 gm/dL 12.8-17.0 Hematocrit 47.3 % 38.0-48.0 Mean Cell Volume 87.6 fl 80.0-96.0 Mean Corpuscular HGB 30.6 pg 27.0-33.0 Mean Corpuscular HGB Conc 34.9 g/dL 31.7-36.0 Platelet Count 264 K/uL 150-400 Red Cell Distri Width %CV 12.8 % 11.6-15.8 Mean Platelet Volume 9.1 fL 6.6-10.6 Laboratory test 02/18/2015 [facility] Esophageal Biopsy See Note 70 finding [phone] Urinalysis With 09/07/2014 [facility] Urine Color YELLOW Yellow Microscopic [phone] Urine Clarity CLEAR Clear Urine Glucose - Dipstick NEGATIVE mg/dL Negative Urine Bilirubin - Dipstick NEGATIVE Negative Urine Ketone NEGATIVE mg/dL Negative Urine Specific [place] >=1.030 1.010-1.030 Urine Blood LARGE High Negative Urine PH 6.0 Low 6.5-7.5 Urine Protein - Dipstick NEGATIVE mg/dL Negative Urine Urobilinogen - Dipstick 0.2 E.U./dL 0.2-1.0 Urine Nitrite - Dipstick NEGATIVE Negative Urine Leuk Esterase NEGATIVE Negative Urine RBC 10-20 rbc/hpf High 0-7 Urine WBC 0-2 wbc/hpf 0-7 Urine Epithelial Cells FEW NONESEEN/lpf Urine Bacteria VERY FEW NONESEEN Urine Mucus LARGE NONESEEN Urine Amorph Sediment SMALL Negative Laboratory test finding 09/07/2014 [facility] Urine Screen See Note 71 [phone] LDL Cholesterol Profile 07/22/2014 [facility] Cholesterol 221 mg/dL 72 [phone] Triglycerides 350 mg/dL 73 HDL Cholesterol 38 mg/dL 74 LDL-Cholesterol 113 mg/dL 75 Laboratory test finding 07/22/2014 [facility] CK 129 U/L 39-308 [phone] C-Reactive Protein,Cardiac 1.92 mg/L <3.0 Laboratory test finding 06/18/2014 [facility] Uric Acid 5.6 mg/dL 3.5-7.2 [phone] CK 112 U/L 39-308 Urine Screen 06/02/2014 [facility] Urine Color STRAW Yellow [phone] Urine Clarity CLEAR Clear Urine Glucose - Dipstick NEGATIVE mg/dL Negative Urine Bilirubin - Dipstick NEGATIVE Negative Urine Ketone NEGATIVE mg/dL Negative Urine Specific [place] 1.010 1.010-1.030 Urine Blood NEGATIVE Negative Urine PH 7.5 6.5-7.5 Urine Protein - Dipstick NEGATIVE mg/dL Negative Urine Urobilinogen - Dipstick 0.2 E.U./dL 0.2-1.0 Urine Nitrite - Dipstick NEGATIVE Negative Urine Leuk Esterase NEGATIVE Negative Comprehensive Metabolic Panel 06/02/2014 [facility] Glucose 92 mg/dL 76-115 [phone] BUN 13 mg/dL 5-23 Creatinine 0.9 mg/dL 0.5-1.4 Glom Filtration Rate, Estimate >60 mL/min >60 If >60 mL/min >60 76 BUN/Creat 14.4 ratio Sodium 139 mmol/L 136-145 Potassium 4.1 mmol/L 3.5-5.1 Chloride 106 mmol/L 98-107 Carbon Dioxide 28 mEq/L 18-29 Anion Gap 9 mEq/L 8-16 Calcium 8.8 mg/dL 8.5-10.1 Total Protein 6.8 g/dL 6.3-8.0 Albumin 3.6 g/dL 3.5-5.0 Globulin 3.2 g/dL 1.9-4.3 Alb/Glob 1.1 ratio Bilirubin,Total 0.3 mg/dL 0.2-1.2 Sgot/Ast 32 U/L 16-40 SGPT/Alt 58 U/L 30-65 Alkaline Phosphatase 46 U/L Low 50-136 Laboratory test finding 06/02/2014 [facility] CK 405 U/L High 26- 190 [phone] Thyroid Stim Hormone 2.23 uIU/mL 0.49-4.67 Free T4 0.86 ng/dL 0.71-1.85 C-Reactive Protein,Quant 15.0 mg/L High 0.0-4.9 Antinuclear Antibodies, Ifa Negative . 77 Lyme AB/Western 06/02/2014 [facility] Lyme AB/Total < 0.91 0.00- 0.90 78 Blot Reflex [phone] Immunoglobulins ISR Lyme Disease Antibody,QT,Igm 1.73 index High 0.00-0.79 79 CBS W/Automated Diff 06/02/2014 [facility] White Blood 3.9 K/uL 3.4-10.5 [phone] Count Red Blood Count 5.17 M/uL 4.20-5.80 Hemoglobin 15.8 gm/dL 12.8-17.0 Hematocrit 46.6 % 38.0-48.0 Mean Cell Volume 90.1 fl 80.0-96.0 Mean Corpuscular HGB 30.6 pg 27.0-33.0 Mean Corpuscular HGB Conc 33.9 g/dL 31.7-36.0 Platelet Count 209 K/uL 150-400 Red Cell Distri Width SD 41.3 fl 36-51 Red Cell Distri Width %CV 12.8 % 11.6-15.8 Mean Platelet Volume 9.0 fL 6.6-10.6 Neut% 60.2 % 33.0-73.0 Lymph % 26.4 % 17.0-56.0 Nicol[place] % 10.0 % 0.0-10.0 Eo% 2.6 % 0.0-5.0 Bas% 0.8 % 0.1-1.0 Neut# 2.35 K/uL 1.8-7.0 Lymph # 1.03 K/uL Low 1.2-4.0 Nicollet # 0.39 K/uL 0.0-0.6 Eos # 0.10 K/uL 0.0-0.5 Baso # 0.03 K/uL Low 0.1-0.2 Laboratory test 06/02/2014 [facility] Sedimentation Rate 5 mm/hr 0 -20 finding [phone] CK-MB (Mass) 2.3 ng/ml 0.5-8.2 Relative % Index 0.6 % <5 80 Lyme Igg & Igm By 06/02/2014 [facility] Lyme AB Igg By Western . Western Blot [phone] Blot P93 AB Absent . P66 AB Absent . P58 AB Absent . P45 AB Absent . P41 AB Absent . P39 AB Absent . P30 AB Absent . P28 AB Absent . P23 AB Absent . P18 AB Absent . Lyme Igg WB Interpretation Negative . 81 P41 AB Absent . P39 AB Absent . P23 AB Present High . Lyme Igm WB Interpretation Negative . 82 Comprehensive Metabolic 04/03/2014 [facility] Glucose 138 mg/dL High 76-115 Panel [phone] BUN 12 mg/dL 5-23 Creatinine 1.0 mg/dL 0.5-1.4 Glom Filtration Rate, Estimate >60 mL/min >60 If >60 mL/min >60 83 BUN/Creat 12.0 ratio Sodium 138 mmol/L 136-145 Potassium 4.3 mmol/L 3.5-5.1 Chloride 103 mmol/L 98-107 Carbon Dioxide 26 mEq/L 18-29 Anion Gap 13 mEq/L 8-16 Calcium 9.5 mg/dL 8.5-10.1 Total Protein 7.6 g/dL 6.3-8.0 Albumin 3.7 g/dL 3.5-5.0 Globulin 3.9 g/dL 1.9-4.3 Alb/Glob 0.9 ratio Bilirubin,Total 0.3 mg/dL 0.2-1.2 Sgot/Ast 19 U/L 16-40 SGPT/Alt 50 U/L 30-65 Alkaline Phosphatase 56 U/L 50-136 Differential-WBC Confirm 04/03/2014 [facility] Total Cells 100 # CELLS [phone] Counted Band% 1 % 0-8 Neutrophils% 87 % High 33-73 Lymph% 8 % Low 17-56 Monocyte% 3 % 0-10 Basophil% 1 % 0-2 Platelet Estimate NORMAL RBC Morphology NORMAL CBC W/Automated Diff 04/03/2014 [facility] White Blood 6.7 K/uL 3.4-10.5 [phone] Count Red Blood Count 5.43 M/uL 4.20-5.80 Hemoglobin 16.5 gm/dL 12.8-17.0 Hematocrit 47.4 % 38.0-48.0 Mean Cell Volume 87.3 fl 80.0-96.0 Mean Corpuscular HGB 30.4 pg 27.0-33.0 Mean Corpuscular HGB Conc 34.8 g/dL 31.7-36.0 Platelet Count 236 K/uL 150-400 Red Cell Distri Width SD 39.7 fl 36-51 Red Cell Distri Width %CV 12.5 % 11.6-15.8 Mean Platelet Volume 8.8 fL 6.6-10.6 Neut# 5.99 K/uL 1.8-7.0 Lymph # 0.50 K/uL Low 1.2-4.0 [place] # 0.17 K/uL 0.0-0.6 Eos # 0.01 K/uL 0.0-0.5 Baso # 0.04 K/uL Low 0.1-0.2 Comprehensive Metabolic Panel 03/11/2014 [facility] Glucose 83 mg/dL 76-115 [phone] BUN 20 mg/dL 5-23 Creatinine 0.9 mg/dL 0.5-1.4 Glom Filtration Rate, Estimate >60 mL/min >60 If >60 mL/min >60 84 BUN/Creat 22.2 ratio Sodium 142 mmol/L 136-145 Potassium 3.7 mmol/L 3.5-5.1 Chloride 106 mmol/L 98-107 Carbon Dioxide 27 mEq/L 18-29 Anion Gap 13 mEq/L 8-16 Calcium 9.1 mg/dL 8.5-10.1 Total Protein 6.6 g/dL 6.3-8.0 Albumin 3.7 g/dL 3.5-5.0 Globulin 2.9 g/dL 1.9-4.3 Alb/Glob 1.3 ratio Bilirubin,Total 0.4 mg/dL 0.2-1.2 Sgot/Ast 17 U/L 16-40 SGPT/Alt 47 U/L 30-65 Alkaline Phosphatase 45 U/L Low 50-136 LDL Cholesterol Profile 03/11/2014 [facility] Cholesterol 190 mg/dL 120-200 [phone] Triglycerides 202 mg/dL 16-231 HDL Cholesterol 44 mg/dL 29-83 LDL-Cholesterol 106 mg/dL 62-185 Influenza A & B 12/24/2013 [facility] Influenza A Antigen See Note 85 Antigen [phone] Influenza B Antigen See Note 86 Laboratory 12/18/2013 [facility] Testosterone,Serum 259 Low 348- 1197 87 test finding [phone]/dL Celiac Disease 01/08/2012 [facility] Immunoglobulin A 184 70-400 AB Profile [phone] mg/[phone] Antigliadin Abs, IgG 6 units 0-19 88 Antigliadin Abs, IgA 2 units 0-19 89 Endomysial IgA Antibody Negative Negative t-Transglutaminase IgA <2 U/mL 0-3 90 t-Transglutaminase IgG <2 U/mL 0-5 91 Celiac Disease Comp 01/08/2012 [facility] Immunoglobulin A 184 mg/dL 70-400 AB Profile [phone] Antigliadin Abs, IgG 6 units 0-19 92 Antigliadin Abs, IgA 2 units 0-19 93 1 FLU? CHILLS, FEVER 2 URINE, CLEAN CATCH 3 Note: Persistent reduction for 3 months or more in an eGFR <60 mL/min/1.73 m2 defines CKD. Patients with eGFR values >/=60 mL/min/1.73 m2 may also have CKD if evidence of persistent proteinuria is present. The original MDRD equation for estimated GFR is not valid for patients less than 18 years of age. Additional information may be found at www.kdoqi.org. 4 Values below the stated reference ranges of AST and ALT can be seen in normal populations. Clinical correlation is suggested. 5 Instrument flagged sample for slide review. Less than 10% Bands seen, no other immature WBC's seen. RBC morphology essentially normal. Platelet estimate=Normal 6 FLU LIKE SYMPTOMS,ACHING,FEVER 7 NO GROWTH: FINAL REPORT 8 NO GROWTH: FINAL REPORT 9 NO GROWTH: FINAL REPORT 10 NO GROWTH: FINAL REPORT 11 Specimen Hemolyzed, interpret with caution CALLED LA EARLE Spangler AT 1704 08/15/17 by LAB.ELR 12 0.0 - 0.045 ng/mL: Normal 0.046 - 0.5 ng/mL: Suggestive 0.6 - 1.5 ng/mL: Consistent 13 Note: Persistent reduction for 3 months or more in an eGFR <60 mL/min/1.73 m2 defines CKD. Patients with eGFR values >/=60 mL/min/1.73 m2 may also have CKD if evidence of persistent proteinuria is present. The original MDRD equation for estimated GFR is not valid for patients less than 18 years of age. Additional information may be found at www.kdoqi.org. 14 Please Note: A POSITIVE result for influenza A and/or B antigen does not rule out a co-infection with other pathogens or identify any specific influenza A virus subtype. A NEGATIVE result for influenza A and/or B antigen does not preclude influenza virus infection and should not be the sole basis for treatment or other management decisions, since the antigen present in the specimen may be below the detection limit of the test. A NEGATIVE result is PRESUMPTIVE and it is recommended these results be confirmed by virus culture or an FDA-cleared influenza A and B molecular assay. Method: [employer] Chromatographic immunoassay 15 URINE, CLEAN CATCH 16 Z12.5,Z00.01,M79.1,Z11.9 17 THIS ASSAY IS NOT INTENDED A CANCER SCREENING TEST The concentration of PSA in a given specimen, determined with assays from different manufacturers, can vary due to differences in assay methods and reagent specificity. Values obtained from different assay methods cannot be used interchangeably. Method: [employer] Chemiluminescent immunoassay. 18 Note: Persistent reduction for 3 months or more in an eGFR <60 mL/min/1.73 m2 defines CKD. Patients with eGFR values >/=60 mL/min/1.73 m2 may also have CKD if evidence of persistent proteinuria is present. The original MDRD equation for estimated GFR is not valid for patients less than 18 years of age. Additional information may be found at www.kdoqi.org. 19 Reference Guidelines*: Desirable: ........... < 200 mg/dL Borderline High: ..... 200-239 mg/dL High: ................ >=240 mg/dL * The National Cholesterol Education Program (NCEP) 20 Reference Guidelines*: Normal: ............. < 150 mg/dL Borderline High: .... 150-199 mg/dL High: ............... 200-499 mg/dL Very High: .......... > 500 mg/dL * Source: National Cholesterol Education Program (NCEP) 21 Reference Guidelines*: Low HDL: ..... < 40 mg/dL Normal: ..... 40-60 mg/dL Desirable: ... > 60 mg/dL *The National Cholesterol Education Program(NCEP) 22 Reference Guidelines*: Optimal:........... <100 mg/dL Near Optimal....... 100-129 mg/dL Borderline High.... 130-159 mg/dL High............... 160-189 mg/dL Very High.......... >=190 mg/dL * Source: National Cholesterol Education Program (NCEP) 23 INFCE Result Units: s/co ratio Negative: < 0.8 Indeterminate: 0.8 - 0.9 Positive: > 0.9 The CDC recommends that a positive HCV antibody result be followed up with a HCV Nucleic Acid Amplification test (556564). Performed at: RN - [facility] [address] [id number] [employer]: Mabel Norris MD, Phone: [phone] 24 CENTER RIB PAIN OFF AND ON X 1 MONTH 25 Note: Persistent reduction for 3 months or more in an eGFR <60 mL/min/1.73 m2 defines CKD. Patients with eGFR values >/=60 mL/min/1.73 m2 may also have CKD if evidence of persistent proteinuria is present. The original MDRD equation for estimated GFR is not valid for patients less than 18 years of age. Additional information may be found at www.kdoqi.org. 26 Values below the stated reference ranges of AST and ALT can be seen in normal populations. Clinical correlation is suggested. 27 Comment: baseline 28 Comment: baseline 29 [facility] Severe Sepsis and Septic Shock Management Bundle Measure requires all lactic acids initially measuring >2.0 mmol/L be repeated. 30 Comment: 1 min 31 Comment: 1 min 32 [facility] Severe Sepsis and Septic Shock Management Bundle Measure requires all lactic acids initially measuring >2.0 mmol/L be repeated. [facility] Severe Sepsis and Septic Shock Management Bundle Measure requires all lactic acids initially measuring >2.0 mmol/L be repeated. 33 Comment: 2 min 34 Comment: 2 min 35 [facility] Severe Sepsis and Septic Shock Management Bundle Measure requires all lactic acids initially measuring >2.0 mmol/L be repeated. [facility] Severe Sepsis and Septic Shock Management Bundle Measure requires all lactic acids initially measuring >2.0 mmol/L be repeated. 36 Comment: 7 min 37 Comment: 7 min 38 [facility] Severe Sepsis and Septic Shock Management Bundle Measure requires all lactic acids initially measuring >2.0 mmol/L be repeated. 39 Comment: 5 min 40 Comment: 5 min 41 [facility] Severe Sepsis and Septic Shock Management Bundle Measure requires all lactic acids initially measuring >2.0 mmol/L be repeated. [facility] Severe Sepsis and Septic Shock Management Bundle Measure requires all lactic acids initially measuring >2.0 mmol/L be repeated. 42 Comment: 3 min 43 Comment: 3 min 44 [facility] Severe Sepsis and Septic Shock Management Bundle Measure requires all lactic acids initially measuring >2.0 mmol/L be repeated. [facility] Severe Sepsis and Septic Shock Management Bundle Measure requires all lactic acids initially measuring >2.0 mmol/L be repeated. 45 SURGICAL SITE ON NECK, OOZING 46 NO ORGANISMS SEEN 47 MODERATE WHITE BLOOD CELLS 48 PASTURELLA SPECIES 49 MIXED SKIN JONATHAN 50 [id number] SEE RESULT BELOW Name: FLAKO PELAYO : [address]: Toby Medina MD Acct: [id number] Unit: [id number] AGE: 51 Location: [facility] Re03/05/17 SEX: M Status: DEP ER SPEC: [id number] MACO: 03/05/17-[address] [facility] [address]: Toby Medina MD REQ: [id number] RECD: 03/06/173 STATUS: ATUL HERNANDES DR: Evan Werner MD _ SOURCE: URINE SPDES: ORDERED: Urine Culture COMMENTS: [id number] Procedure Result Reported Site Urine Culture Final 03/07/17- 0854 ML No Growth (<1,000 CFU/mL) * ML - MAIN LAB ([facility]) . END OF REPORT * ML=Testing performed at Main Lab DEPARTMENT OF PATHOLOGY, [address] [place] [address] Flako Benitez M.D. Director [facility] # [id number] 52 Z00.00,Z11.9 53 Performed at: RN - [facility] [address] [id number] [employer]: Mabel Norris MD, Phone: [phone] 54 Reference Guidelines*: Desirable: ........... < 200 mg/dL Borderline High: ..... 200-239 mg/dL High: ................ >=240 mg/dL * The National Cholesterol Education Program (NCEP) 55 Reference Guidelines*: Normal: ............. < 150 mg/dL Borderline High: .... 150-199 mg/dL High: ............... 200-499 mg/dL Very High: .......... > 500 mg/dL * Source: National Cholesterol Education Program (NCEP) 56 Reference Guidelines*: Low HDL: ..... < 40 mg/dL Normal: ..... 40-60 mg/dL Desirable: ... > 60 mg/dL *The National Cholesterol Education Program(NCEP) 57 Reference Guidelines*: Optimal:........... <100 mg/dL Near Optimal....... 100-129 mg/dL Borderline High.... 130-159 mg/dL High............... 160-189 mg/dL Very High.......... >=190 mg/dL * Source: National Cholesterol Education Program (NCEP) 58 Note: Persistent reduction for 3 months or more in an eGFR <60 mL/min/1.73 m2 defines CKD. Patients with eGFR values >/=60 mL/min/1.73 m2 may also have CKD if evidence of persistent proteinuria is present. The original MDRD equation for estimated GFR is not valid for patients less than 18 years of age. Additional information may be found at www.kdoqi.org. 59 Elevated levels of HbA1c suggest the need for more aggressive treatment of glycemia. The [place] [employer] recommends that a primary goal of therapy should be a HbA1c of <7% and that physicians should re-evaluate the treatment regimen in patients with HbA1c values consistently >8%. 60 Antibodies to HCV not detected; does not exclude early acute HCV infection. 61 Negative <1:80 Borderline 1:80 Positive >1:80 Performed at: [facility] [address] [id number] [employer]: Mabel Norris MD, Phone: [phone] 62 Performed at: [facility] [address] [id number] [employer]: Mabel Norris MD, Phone: [phone] 63 QUERY: Is the Patient Fasting? N 64 Performed at: [facility] [address] [id number] [employer]: James Dash MD, Phone: [phone] 65 Reference Guidelines*: Desirable: ........... < 200 mg/dL Borderline High: ..... 200-239 mg/dL High: ................ >=240 mg/dL * The National Cholesterol Education Program (NCEP) 66 Reference Guidelines*: Normal: ............. < 150 mg/dL Borderline High: .... 150-199 mg/dL High: ............... 200-499 mg/dL Very High: .......... > 500 mg/dL * Source: National Cholesterol Education Program (NCEP) 67 Reference Guidelines*: Low HDL: ..... < 40 mg/dL Normal: ..... 40-60 mg/dL Desirable: ... > 60 mg/dL *The National Cholesterol Education Program(NCEP) 68 Reference Guidelines*: Optimal:........... <100 mg/dL Near Optimal....... 100-129 mg/dL Borderline High.... 130-159 mg/dL High............... 160-189 mg/dL Very High.......... >=190 mg/dL * Source: National Cholesterol Education Program (NCEP) 69 Performed at: KEV - [facility] [address] [id number] [employer]: Mabel Norris MD, Phone: [phone] 70 OPERATION/PROCEDURE Colonoscopy, EGD DIAGNOSIS: PART 1: "RANDOM COLON BIOPSIES": COLONIC MUCOSAL BIOPSIES SHOWING NO SPECIFIC ABNORMALITIES. NO EVIDENCE OF COLLAGENOUS OR LYMPHOCYTIC COLITIS IDENTIFIED. PART 2: "DUODENAL BIOPSIES": SMALL BOWEL MUCOSAL BIOPSY SHOWING NO SPECIFIC ABNORMALITIES. NO SIGNIFICANT ATROPHY OR INTRAEPITHELIAL LYMPHOCYTOSIS IDENTIFIED. PART 3: "STOMACH BIOPSY": MILD CHRONIC GASTRITIS WITHOUT ACTIVITY. NO EVIDENCE OF HELICOBACTOR PYLORI IDENTIFIED BY WARTHIN STARRY STAIN. PART 4: "ESOPHAGEAL BIOPSIES": MILD CHRONIC GASTRITIS WITHOUT ACTIVITY. NO EVIDENCE OF GALLOWAY'S METAPLASIA IDENTIFIED. NO DYSPLASIA IDENTIFIED. PART 5: "ESOPHAGEAL BIOPSIES": STRIPS OF STRATIFIED SQUAMOUS EPITHELIUM SHOWING NO SPECIFIC ABNORMALITIES. NO EVIDENCE OF EOSINOPHILIC ESOPHAGITIS IDENTIFIED. SHEA/dinesh 1033 GROSS Part 1. The specimen is submitted in formalin in a container labeled, "RANDOM COLON BIOPSIES". The specimen consists of multiple fragments of soft white tissue each 0.3 x 0.2 x 0.2 cm. Submitted entirely in one block. Part 2. The specimen is submitted in formalin in a container labeled, "DUODENAL BIOPSIES" and consists of five pieces of soft oshea-yellow tissue each 0.3 x 0.3 x 0.3 cm. Submitted entirely in one block. Part 3. The specimen is submitted in formalin in a container labeled, "STOMACH BIOPSY" and consists of two pieces of soft red-oshea tissue each 0.2 x 0.2 x 0.2 cm. Submitted entirely in one block. Part 4. The specimen is submitted in formalin in a container labeled, "ESOPHAGEAL BIOPSIES" and consists of two pieces of soft red-oshea tissue each 0.2 x 0.2 x 0.2 cm. Submitted entirely in one block. Part 5. The specimen is submitted in formalin in a container labeled, "ESOPAHGEAL BIOPSIES" and consists of two pieces of soft white-oshea tissue 0.3 x 0.2 x 0.2 cm. Submitted entirely in one block. SHEA/clf PRE OPERATIVE DIAGNOSIS History of polyp, GERD REVIEW CODE CODE: I Signed Electronically signed NENO CONDE MD [id number] 09/07/14 EVA Deleted by [employer]lex Group [facility] 72 Reference Guidelines*: Desirable: ........... < 200 mg/dL Borderline High: ..... 200-239 mg/dL High: ................ >=240 mg/dL * The National Cholesterol Education Program (NCEP) 73 Reference Guidelines*: Normal: ............. < 150 mg/dL Borderline High: .... 150-199 mg/dL High: ............... 200-499 mg/dL Very High: .......... > 500 mg/dL * Source: National Cholesterol Education Program (NCEP) 74 Reference Guidelines*: Low HDL: ..... < 40 mg/dL Normal: ..... 40-60 mg/dL Desirable: ... > 60 mg/dL *The National Cholesterol Education Program(NCEP) 75 Reference Guidelines*: Optimal:........... <100 mg/dL Near Optimal....... 100-129 mg/dL Borderline High.... 130-159 mg/dL High............... 160-189 mg/dL Very High.......... >=190 mg/dL * Source: National Cholesterol Education Program (NCEP) 76 Note: Persistent reduction for 3 months or more in an eGFR <60 mL/min/1.73 m2 defines CKD. Patients with eGFR values >/=60 mL/min/1.73 m2 may also have CKD if evidence of persistent proteinuria is present. The original MDRD equation for estimated GFR is not valid for patients less than 18 years of age. Additional information may be found at www.kdoqi.org. 77 Negative <1:80 Borderline 1:80 Positive >1:80 78 Negative <0.91 Equivocal 0.91 - 1.09 Positive >1.09 Please note reference interval change 79 Negative <0.80 Equivocal 0.80 - 1.19 Positive >1.19 IgM levels may peak at 3-6 weeks post infection, then gradually decline. 80 < 5%=non AMI 5 - 10%=borderline for AMI > 10%=positive for AMI FOR DIAGNOSTIC PURPOSES, THE CK-MB RESULT (MASS AND RELATIVE PERCENT INDEX) SHOULD BE USED IN CONJUNCTION WITH OTHER PERTINENT CLINICAL DATA. 81 Positive: 5 of the following Borrelia-specific bands: 18,23,28,30,39,41,45,58, 66, and 93. Negative: No bands or banding patterns which do not meet positive criteria. 82 Note: An equivocal or positive EIA result followed by a negative Western Blot result is considered NEGATIVE. An equivocal or positive EIA result followed by a positive Western Blot is considered POSITIVE by the CDC. Positive: 2 of the following bands: 23,39 or 41 Negative: No bands or banding patterns which do not meet positive criteria. Criteria for positivity are those recommended by CDC/ASTPHLD. p23=Osp C, k73=hqluucslo Note: Sera from individuals with the following may cross react in the [place] Western Blot assays: other spirochetal diseases (periodontal disease, leptospirosis, relapsing fever, yaws, and pinta); connective autoimmune (Rheumatoid Arthritis and Systemic Lupus Erythematosus and also individuals with Antinuclear Antibody); other infections ([place] Spotted Fever; Farooq-Alejandro Virus, and Cytomegalovirus). Performed at: - [facility] [id number] [employer]: Mabel Norris MD, Phone: [phone] 83 Note: Persistent reduction for 3 months or more in an eGFR <60 mL/min/1.73 m2 defines CKD. Patients with eGFR values >/=60 mL/min/1.73 m2 may also have CKD if evidence of persistent proteinuria is present. The original MDRD equation for estimated GFR is not valid for patients less than 18 years of age. Additional information may be found at www.kdoqi.org. 84 Note: Persistent reduction for 3 months or more in an eGFR <60 mL/min/1.73 m2 defines CKD. Patients with eGFR values >/=60 mL/min/1.73 m2 may also have CKD if evidence of persistent proteinuria is present. The original MDRD equation for estimated GFR is not valid for patients less than 18 years of age. Additional information may be found at www.kdoqi.org. 85 NEGATIVE FOR INFLUENZA A ANTIGEN Influenza A testing has been performed by non-culture methods. Viral (cell) culture testing may be considered to confirm the results or if testing is desired to detect other viruses that can cause similiar clinical symptoms. 86 NEGATIVE FOR INFLUENZA B ANTIGEN Influenza B testing has been performed by non-culture methods. Viral (cell) culture testing may be considered to confirm the results or if testing is desired to detect other viruses that can cause similiar symptoms. 87 Performed at: [address] [id number] [employer]: Mabel Norris MD, Phone: [phone] 88 Negative 0 - 19 Weak Positive 20 - 30 Moderate to Strong Positive >30 89 Negative 0 - 19 Weak Positive 20 - 30 Moderate to Strong Positive >30 90 Negative 0 - 3 Weak Positive 4 - 10 Positive >10 Tissue Transglutaminase (tTG) has been identified as the endomysial antigen. Studies have demonstr- ated that endomysial IgA antibodies have over 99% specificity for gluten sensitive enteropathy. 91 Negative 0 - 5 Weak Positive 6 - 9 Positive >9 Performed at: [address] [id number] [employer]: Joe Kline MD, Phone: [phone] 92 Negative 0 - 19 Weak Positive 20 - 30 Moderate to Strong Positive >30 93 Negative 0 - 19 Weak Positive 20 - 30 Moderate to Strong Positive >30 Procedures Date Code Description Status 05/26/2015 97136 Audiogram, Screen Only Pure Tone Completed 05/26/2015 66276231 Colonoscopy Completed 04/29/2014 50550 Audiogram, Screen Only Pure Tone Completed 08/15/2011 73728 Hearing Test Completed 08/10/2010 96810 Color/Snellen Vision Completed 08/10/2010 81550 Hearing Test Completed 03/19/2007 09837 Exc.Benign Lesion 0.5CM Or Less Completed Encounters Type Date Location Provider Dx Diagnosis Office Visit 06/26/2018 Main Office Evan Werner Z00.01 Encounter for 11:30a M.Yaneth. general adult medical exam w abnormal findings Z12.12 Encounter for screening for malignant neoplasm of rectum Z12.5 Encounter for screening for malignant neoplasm of prostate J45.909 Unspecified asthma, uncomplicated E83.118 Other hemochromatosis M79.18 Myalgia, other site Office Visit 06/06/2017 3:00p Main Office Susan Wang00.01 Encounter for M.Yaneth. general adult medical exam w abnormal findings Z12.12 Encounter for screening for malignant neoplasm of rectum Z12.5 Encounter for screening for malignant neoplasm of prostate K21.9 Gastro-esophageal reflux disease without esophagitis J45.909 Unspecified asthma, uncomplicated E83.118 Other hemochromatosis M79.1 Myalgia Z11.9 Encounter for screening for infec/parastc diseases, unsp Office Visit 07/18/2016 3:30p Main Office Evan Werner R25.2 Cramp and M.D. spasm I10 Essential (primary) hypertension Office Visit 06/05/2016 3:00p Main Office Evan Werner, Z00.00 Encntr for M.D. general adult medical exam w/o abnormal findings Z12.5 Encounter for screening for malignant neoplasm of prostate Z12.12 Encounter for screening for malignant neoplasm of rectum Office Visit 02/22/2016 3:30p Main Office Evan Werner G25.81 Restless legs M.D. syndrome Office Visit 09/07/2015 9:15a Main Office Evan Werner G25.81 Restless legs M.D. syndrome E29.1 Testicular hypofunction Office Visit 07/07/2015 3:30p Main Office Evan Werner G25.81 Restless legs M.D. syndrome E29.1 Testicular hypofunction Office Visit 06/24/2015 3:30p Main Office Evan Werner G25.81 Restless legs M.D. syndrome Office Visit 05/26/2015 3:00p Main Office Evan Werner Z00.00 Encntr for M.D. general adult medical exam w/o abnormal findings Z12.11 Encounter for screening for malignant neoplasm of colon Z12.5 Encounter for screening for malignant neoplasm of prostate D48.7 Neoplasm of uncertain behavior of other specified sites Z12.12 Encounter for screening for malignant neoplasm of rectum Office Visit 11/24/2014 3:45p Main Office Evan Werner 728.87 Muscle Weakness M.D. Generalized Office Visit 10/27/2014 4:00p Main Office Evan Werner 729.1 Myalgia & M.D. Myositis Unspec 401.9 Hypertension Unspec 272.4 Hyperlipidemia Other Unspec Office Visit 07/30/2014 4:00p Main Office Evan Werner 729.1 Myalgia & M.D. Myositis Unspec 401.9 Hypertension Unspec Office Visit 06/24/2014 11:00a Main Office Evan Werner 729.1 Myalgia & M.D. Myositis Unspec Office Visit 06/05/2014 9:30a Main Office Evan Werner, 719.49 Pain Joint M.D. Multiple Sites 728.89 Muscle Disorders Other Office Visit 04/29/2014 Main Office Evan V70.0 Examination General 4:00p Brooks Werner Medical Routine AT Health Care Facility Office Visit 03/04/2014 Main Office Evan 272.4 Hyperlipidemia Other 11:30a Brooks Werner Unspec 530.81 Esophageal Reflux 493.90 Asthma Unspec W/O Status Asthmaticus 257.2 Testicular Hypofunction Other V76.41 Screening Malignant Neoplasm Rectum Office Visit 08/29/2011 10:00a Main Office Evan Werner 726.10 Bursae & Tendon M.D. Disorders Shoulder Region Unspec 272.4 Hyperlipidemia Other Unspec 607.84 Erectile Dysfunction 530.81 Esophageal Reflux Office Visit 08/15/2011 Main Office Evan 272.4 Hyperlipidemia Other 11:15a Brooks Werner Unspec 564.1 Irritable Bowel Syndrome 607.84 Erectile Dysfunction 786.05 Shortness Of Breath V70.0 Examination General Medical Routine AT Health Care Facility Office Visit 05/15/2011 11:00a Main Office Evan Werner 564.1 Irritable Bowel M.D. Syndrome 272.4 Hyperlipidemia Other Unspec 840.9 Sprains & Strains Shoulder & Upper Arm Unspec Office Visit 08/10/2010 2:15p Main Office Evan Werner V70.0 Examination M.D. General Medical Routine AT [facility] V76.51 Special Screening For Malignant Neoplasms Colon Office Visit 04/02/2008 10:45a Main Office Evan Werner V70.0 Examination M.D. 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 272.4 Hyperlipidemia Other Unspec Plan of Treatment 06/26/2018 - Evan Werner M.D.Z00.01 Encounter for general adult medical examination with abnormaNew Labs:C-Reactive Protein,Cardiac, Ordered: Homocyst(E)Ine, P/S, Ordered: 06/26/18Basic Metabolic Panel, Ordered: LDL Cholesterol Profile, Ordered: 06/26/18ollow up:1 year agxfgjmdU10.12 Encounter for screening for malignant neoplasm of rsvdjgZ59.5 Encounter for screening for malignant neoplasm of lycjikhbE73.909 Unspecified asthma, pjnextshnxpeyA34.118 Other tlyssmeyjeuftcuE67.18 Myalgia, other siteNew Labs:CK , Ordered: 06/26/18
[2018-07-02 18:28] VITALS: BP 135/78
--- NOTE | 2018-07-02 18:33 | UC ---
Truncal Trauma HPI - HPI Summary HPI Summary: 52 yo male presents with left chest wall pain for the last year. He tells me that there is a spot in between his left anterior ribs that is painful to touch and will hurt if he stretches in a certain way. He denies injury. He has not taken tylenol or naproxen for this as he is adamant that this is not a muscle. He has seen his PCP in the past for this and his PCP advised him to apply ice and heat, but that did not change his symptoms. He denies fever, chills, SOB, cardiac chest pain, abdominal pain, n/v. - History Of Current Complaint Chief Complaint: UCGeneralIllness Stated Complaint: RIB CAGE PAIN Time Seen by Provider: 07/02/18 18:33 Hx Obtained From: Patient Severity Initially: Mild Severity Currently: Mild Pain Intensity: 2 Pain Scale Used: 0-10 Numeric - Allergies/Home Medications Allergies/Adverse Reactions: Allergies Allergy/AdvReac Type Severity Reaction Status Date / Time amoxicillin [From Augmentin] Allergy Hives Verified 01/10/18 09:28 aspirin Allergy Congestion Verified 01/10/18 09:28 clarithromycin [From Biaxin] Allergy Hives Verified 01/10/18 09:30 clavulanic acid Allergy Hives Verified 01/10/18 09:28 [From Augmentin] ibuprofen Allergy Unknown Verified 01/10/18 09:30 Reaction Details levofloxacin [From Levaquin] Allergy Muscle Ache Verified 01/10/18 09:30 sulfamethoxazole Allergy Swelling Verified 01/10/18 09:28 [From Bactrim] trimethoprim [From Bactrim] Allergy Swelling Verified 01/10/18 09:28 PMH/Surg Hx/FS Hx/Imm Hx GI/ History: Gastroesophageal Reflux - Surgical History Surgical History: Yes Surgery Procedure, Year, and Place: sinus surgery, bilateral FESS surgeries for sinus, deviated septum, umb. hernia repair, lt shoulder surgery LABRAL REPAIR ; undescended testicle;LASIK EYE SURGERY, right EYE IMPLANT (INTACS LENS IMPLANT)SCANNED INTO OTHER FACILITIES REPORTS-SPOKE TO DR LAUGHLIN, HE SAID TO GET ORBIT XRAYS TO BE SURE BUT THINKS ITS AND ACRYLIC SUBSTANCE. ( XRAYS DONE - CLEARED BY DR COLON) - Family History Known Family History: Positive: Cardiac Disease - Social History Occupation: Employed Full-time Lives: With Family Alcohol Use: Weekly Alcohol Amount: WEEKENDS Substance Use Type: None Substance Use Comment - Amount & Last Used: occassionally smokes marijuana Smoking Status (MU): Never Smoked Tobacco Have You Smoked in the Last Year: No - Immunization History Most Recent Influenza Vaccination: June 2016 Most Recent Tetanus Shot: 05/18/17 Vaccination Up to Date: No Review of Systems Constitutional: Negative Skin: Negative Respiratory: Negative Cardiovascular: Negative Gastrointestinal: Negative Neurovascular: Negative Musculoskeletal: Other: - Left chest wall pain Neurological: Negative Psychological: Negative All Other Systems Reviewed And Are Negative: Yes Physical Exam - Summary Physical Exam Summary: GENERAL: NAD. WDWN. No pain distress. SKIN: No rashes, sores, lesions, or open wounds. NECK: Supple. Nontender. No lymphadenopathy. CHEST: CTAB. No r/r/w. No accessory muscle use. Breathing comfortably and in no distress. CV: RRR. Without m/r/g. Pulses intact. Cap refill <2seconds ABDOMEN: Soft. NTTP. No distention or guarding. No CVA tenderness. Bowel sounds present MSK: TTP at the intercoastal 9-10th anterior left ribs. NEURO: Alert. PSYCH: Age appropriate behavior. Triage Information Reviewed: Yes Vital Signs: Initial Vital Signs Temp 98 F 07/02/18 18:23 Pulse 57 07/02/18 18:23 Resp 16 07/02/18 18:23 BP 135/78 07/02/18 18:23 Pulse Ox 99 07/02/18 18:23 Vital Signs Reviewed: Yes Truncal Trauma Course/Dx - Course Course Of Treatment: I am unsure the cause of his chest wall discomfort. He is refusing to take tylenol or naproxen as he is adamant that this is not a muscle. His symptoms have been present for about a year and he is in no current distress. I advised him to f/u with his PCP for further investigation. - Differential Dx/Diagnosis Provider Diagnoses: Left chest wall pain Discharge - Sign-Out/Discharge Documenting (check all that apply): Patient Departure All imaging exams completed and their final reports reviewed: No Studies - Discharge Plan Condition: Stable Disposition: HOME Referrals: Evan Werner MD [Primary Care Provider] - As Soon As Possible Additional Instructions: If you develop a fever, shortness of breath, chest pain, new or worsening symptoms - please call your PCP or go to the ED. 1) Please follow up with your Primary Doctor as soon as possible for further evaluation - Billing Disposition and Condition Condition: STABLE Disposition: Home - Attestation Statements Provider Attestation: I was available for consult. This patient was seen by the SHAYNE. The patient was not presented to, seen by, or examined by me. -Gregory
== END 2018-07-02 18:54 | disposition home or self-care (01) ==
LOC: UCCORT 17:35
DX: R07.89 Other chest pain (principal); F12.90 Cannabis use, unspecified, uncomplicated; Z88.1 Allergy status to other antibiotic agents; Z88.6 Allergy status to analgesic agent
CPT/HCPCS: 99211; G0463

== ENCOUNTER 2018-09-20 07:56 | Emergency (ER) | payer BC ==
--- OUTSIDE RECORDS SUMMARY | 2018-09-20 08:10 | XMS REPORT | Continuity of Care Document ---
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 Fenstermacher, RPA-C Active Onset: 08/15/2016 Acute bronchitis Nayely S. Fenstermacher, RPA-C Active Onset: 10/19/2016 Allergic rhinitis due to pollen Nayely S. Fenstermacher, RPA -C Active Onset: 10/19/2016 Allergic rhinitis Nayely S. Fenstermacher, RPA-C Active Onset: 10/19/2016 Non-steroidal anti-inflammatory Nayely S. Fenstermacher, RPA -C Active drug adverse reaction Onset: 10/19/2016 Mild intermittent asthma Nayely S. Fenstermacher, RPA-C Active Onset: 02/06/2017 Allergy status to other drugs, Olivier Nelson MD Active medicaments and biological substances status Onset: 04/26/2017 Acute sinusitis Nayely S. Fenstermacher, RPA-C Active Onset: 09/25/2017 Chronic sinusitis Nayely S. Fenstermacher, RPA-C Active Family History Description No Information Available Social History Type Date Description Comments Sex Unknown Smoke-Free Home is smoke-free Tobacco Use Start: Unknown Patient has never smoked Smoking Status Reviewed: 01/31/18 Patient has never smoked Allergies, Adverse Reactions, Alerts Date Description Reaction Status Severity Comments 10/14/2015 Levaquin Active 10/14/2015 Augmentin Active 10/14/2015 Penicillin Active 10/14/2015 Bactrim Active 04/26/2017 Aspirin Active Medications Medication Date Status Form Strength Qnty SIG Indications Ordering Provider Levocetirizine 01/31 Active Tablets 5mg 30tab take 1 J30.1 Christopher Dihydrochloride /2017 s tablet (5 Leslie Nelson MD mg) by oral route once daily as needed Prednisone 01/31 Active Tablets 10mg 30tab Take 3 J45.20 Christoph s tablets Leslie Nelson MD by mouth twice a day x5 days. Take with food. Advair HFA 01/24 Active Aerosol 230-21mcg 12uni 2 puff J45.20 /Act ts twice a Leslie Nelson MD day Cetirizine HCL 01/24 Active Tablets 10mg 30tab take one J45.20 s tablet by Leslie Nelson MD mouth every day as needed Sodium Chloride 03/06 Active Solution 0.9% 3000u Irrigate nits sinuses Leslie Nelson MD twice a day as needed Ventolin HFA 07/21 Active Aerosol 108(90Bas 18gm Inhale 2 e) puffs by Leslie Nelson MD mcg/Act inhalatio n route every 4 hours as needed. Budesonide Active Suspension 0.5mg/2ML mixed Unknown /0000 with NS and used to irrogate sinus daily Aspirin Active Tablets DR 81mg 1 tab PO Unknown /0000 daily Nasonex Active Suspension 50mcg/Act 2 Unknown /0000 intranasa l puffs every day Clarithromycin 09/25 Hx Tablets 500mg 28tab Take one J32.9 s tablet by Leslie Nelson MD - mouth Q12 05/10 hours x1 days. Prednisone 04/26 Hx Tablets 10mg 18tab Take 3 J01.90 s tablets Leslie Nelson MD - by mouth 09/25 twice a /2017 day x3 days. Take with food. Clarithromycin 04/26 Hx Tablets 500mg 28tab Take one J01.90 oph s tablet by Leslie Nelson MD - mouth Q12 09/25 hours x1 days. Biaxin 11/24 Hx Tablets 500mg 28tab Take one s tablet by Leslie Nelson MD - mouth Q12 08/ hours x1 days. Omnaris 11/06 Hx Suspension 50mcg/Act 1unit [place] 2 s puffs Leslie Nelson MD - into each 04/25 nostril once daily. Qnasl 11/02 Hx Aerosol 80mcg/Act 1unit 2 puffs s each Leslie Nelson MD - nostril 04/25 Biaxin 08/15 Hx Tablets 500mg 28tab Take one J01.01 s tablet by Leslie Nelson MD - mouth Q12 10/19 hours x1 days. Doxycycline 10/14 Hx Capsules 100mg 28cap Take one J01.01 oph Hyclate s capsule Leslie Nelson MD - po bid 08/15 x14 Fluticasone 06/10 Hx Suspension 50mcg/Act inhale 2 Unknown sprays - (100 mcg) 10/19 in nostril by intranasa l route once daily Omeprazole Hx Capsules 40mg Unknown /0000 DR - 09/25 Methocarbamol Hx Tablets 500mg Unknown /0000 - 10/19 Qnasl Hx Aerosol 80mcg/Act 1unit 2 puffs oph s each Leslie Nelson MD - nostril 04/25 Medications Administered in Office Medication Date Status Form Strength Qnty SIG Indications Ordering Provider Allergy 02/01/ Administered Injection Christopher Injection Or 2016 Leslie Nelson MD More Allergy 01/25/ Administered Injection Christopher Injection Or 2016 Leslie Nelson MD More Allergy 01/18/ Administered Injection Christopher Injection Or 2016 Leslie Nelson MD More Allergy 01/04/ Administered Injection Christopher Injection Or 2016 Leslie Nelson MD More Allergy 12/28/ Administered Injection Christopher Injection 2 Or 2016 Leslie Nelson MD More Allergy 12/14/ Administered Injection Christopher Injection 2 Or 2016 Leslie Nelson MD More Allergy 12/07/ Administered Injection Christopher Injection 2 Or 2016 Leslie Nelson MD More Allergy 11/16/ Administered Injection Christopher Injection Or 2016 Leslie Nelson MD More Allergy 11/02/ Administered Injection Christopher Injection 2 Or 2016 Leslie Nelson MD More Allergy 10/26/ Administered Injection Christopher Injection 2 Or 2016 Leslie Nelson MD More Celestone (6 08/15/ Administered Injection Nayely S. MG) 2015 Fenstermache r, RPA-C Therapeutic, 08/15/ Administered Injection Nayely S. Prophylactic 2016 Fenstermache Or Diagnostic r, RPA-C Injection Subq/Im Allergy 03/30/ Administered Injection Christopher Injection Or 2015 Leslie Nelson MD More Allergy 03/09/ Administered Injection Christopher Injection Or 2015 Leslie Nelson MD More Allergy 02/16/ Administered Injection Christopher Injection 2 Or 2015 Leslie Nelson MD More Allergy 01/05/ Administered Injection Christopher Injection 2 Or 2015 Leslie Nelson MD More Allergy 12/29/ Administered Injection Christopher Injection 2 Or 2015 Leslie Nelson MD More Allergy 12/22/ Administered Injection Christopher Injection Or 2015 Leslie Nelson MD More Allergy 11/22/ Administered Injection Christopher Injection Or 2015 Leslie Nelson MD More Allergy 11/04/ Administered Injection Christopher Injection 2 Or 2015 Leslie Nelson MD More Allergy 10/21/ Administered Injection Christopher Injection Or 2015 Leslie Nelson MD More Immunizations Description No Information Available Vital Signs Date Vital Result Comment 08/29/2018 11:00am BP Systolic 128 mmHg BP Diastolic 82 mmHg Height 68 inches 5'8" Weight 187.00 lb BMI (Body Mass Index) 28.4 kg/m2 Heart Rate 63 /min Respiratory Rate 18 /min Body Temperature 98.2 F O2 % BldC Oximetry 98 % 01/31/2018 12:59pm BP Systolic 138 mmHg BP Diastolic 86 mmHg Height 68 inches 5'8" Weight 197.00 lb BMI (Body Mass Index) 30.0 kg/m2 Heart Rate 85 /min Respiratory Rate 16 /min Body Temperature 98.5 F O2 % BldC Oximetry 94 % 01/24/2018 10:02am BP Systolic 122 mmHg BP Diastolic 80 mmHg Height 68 inches 5'8" Weight 196.00 lb BMI (Body Mass Index) 29.8 kg/m2 Heart Rate 61 /min Body Temperature 97.1 F O2 % BldC Oximetry 96 % 04/26/2017 10:19am Height 68 inches 5'8" Weight 195.00 lb BMI (Body Mass Index) 29.6 kg/m2 Heart Rate 60 /min Respiratory Rate 16 /min Body Temperature 96.1 F O2 % BldC Oximetry 96 % 02/06/2017 1:05pm BP Systolic 122 mmHg BP Diastolic 78 mmHg Height 68 inches 5'8" Weight 195.00 lb BMI (Body Mass Index) 29.6 kg/m2 Heart Rate 101 /min Respiratory Rate 11 /min Body Temperature 98.0 F O2 % BldC Oximetry 95 % 10/19/2016 11:10am BP Systolic 130 mmHg BP Diastolic 86 mmHg Height 68 inches 5'8" Weight 196.00 lb BMI (Body Mass Index) 29.8 kg/m2 Heart Rate 69 /min Respiratory Rate 16 /min Body Temperature 97.7 F O2 % BldC Oximetry 98 % 08/15/2016 3:09pm BP Systolic 134 mmHg BP Diastolic 82 mmHg Height 68 inches 5'8" Weight 193.00 lb BMI (Body Mass Index) 29.3 kg/m2 Heart Rate 88 /min Respiratory Rate 20 /min Body Temperature 97.8 F O2 % BldC Oximetry 96 % 10/14/2015 11:39am BP Systolic 140 mmHg BP Diastolic 90 mmHg Height 68 inches 5'8" Weight 200.00 lb BMI (Body Mass Index) 30.4 kg/m2 Heart Rate 70 /min Respiratory Rate 18 /min Body Temperature 97.7 F O2 % BldC Oximetry 97 % Results Test Date Facility Test Result H/L Range Note Order 08/15/2016 [facility] Celestone <pending> Administration Fee Celestone every 3mg <pending> Procedures Date Code Description Status 01/24/2018 59253 Nitric Oxide Gas Determination Completed 01/24/2018 00269 Nitric Oxide Gas Determination Completed 01/24/2018 66509 Bronchodilation Responsiveness Spirometry Pre/Post Completed Bronchodil Adm 01/24/2018 01211 Bronchodilation Responsiveness Spirometry Pre/Post Completed Bronchodil Adm 02/06/2017 22648 Ingestion Challenge Test Sequential & Incremental Completed 02/01/2017 46347 Allergy Injection 2 Or More Completed 01/25/2017 84033 Allergy Injection 2 Or More Completed 01/18/2017 64102 Allergy Injection 2 Or More Completed 01/04/2017 45392 Allergy Injection 2 Or More Completed 12/28/2016 62070 Allergy Injection 2 Or More Completed 12/14/2016 60949 Allergy Injection 2 Or More Completed 12/07/2016 09798 Allergy Injection 2 Or More Completed 11/16/2016 26997 Allergy Injection 2 Or More Completed 11/02/2016 27331 Allergy Injection 2 Or More Completed 10/26/2016 00198 Allergy Injection 2 Or More Completed 08/15/2016 51768 Therapeutic, Prophylactic Or Diagnostic Injection Subq/Im Completed 03/30/2016 56508 Allergy Injection 2 Or More Completed 03/14/2016 28214 Allergy Antigens Single Or Multiple Completed 03/09/2016 29288 Allergy Injection 2 Or More Completed 02/17/2016 38154 Allergy Injection 2 Or More Completed 01/06/2016 30749 Allergy Injection 2 Or More Completed 12/30/2015 88075 Allergy Injection 2 Or More Completed 12/23/2015 90871 Allergy Injection 2 Or More Completed 11/23/2015 83447 Allergy Injection 2 Or More Completed 11/04/2015 39233 Allergy Injection 2 Or More Completed 10/21/2015 12003 Allergy Antigens Single Or Multiple Completed 10/21/2015 54284 Allergy Injection 2 Or More Completed Encounters Type Date Location Provider Dx Diagnosis Office Visit 01/31/2018 1:00p GERA Astudillo J30.1 Allergic rhinitis due to pollen J30.89 Other allergic rhinitis J45.20 Mild intermittent asthma, uncomplicated Office Visit 01/24/2018 10:00a GERA Astudillo J30.1 Allergic rhinitis due to pollen J30.89 Other allergic rhinitis J45.20 Mild intermittent asthma, uncomplicated Office Visit 09/25/2017 11:30a Danial Sandy J32.9 Chronic sinusitis, Fenstermacher, RPA-C unspecified Office Visit 04/26/2017 10:15a Danial Sandy J01.90 Acute sinusitis, Fenstermacher, RPA-C unspecified J30.1 Allergic rhinitis due to pollen J30.89 Other allergic rhinitis J45.20 Mild intermittent asthma, uncomplicated Office 10/19/2016 Danial Sandy T39.395A Adverse effect of Visit 10:45a Fenstermacher, nonsteroidal RPA-C anti-inflammatory drugs, init J45.20 Mild intermittent asthma, uncomplicated J30.1 Allergic rhinitis due to pollen J30.89 Other allergic rhinitis Office Visit 08/15/2016 3:00p Danial Sandy J01.01 Acute recurrent Fenstermacher, RPA-C maxillary sinusitis J20.9 Acute bronchitis, unspecified Office Visit 10/14/2015 11:30a Danial Sandy J01.01 Acute recurrent Fenstermacher, RPA-C maxillary sinusitis Plan of Treatment 01/31/2018 - GERA AnguloJ30.1 Allergic rhinitis due to pollenNew Medication: Levocetirizine Dihydrochloride 5 mg - take 1 tablet (5 mg) by oral route once daily as bdimirE52.89 Other allergic lktfzzbaQ13.20 Mild intermittent asthma, uncomplicatedNew Medication:Prednisone 10 mg - Take 3 tablets by mouth twice a day x5 days. Take with food.Comments:Patient is having an asthma flare up. Patient to use prednisone as prescribed for 5 days. Patientto continue Advair for prophylaxis of his lungs and Proair for breakthrough chest symptoms. Patientto use Nasonex as prescribed for prophylaxis of his nose and Xyzal for breakthrough nasal symptoms.Warn salt water gargles may help the cough.
--- OUTSIDE RECORDS SUMMARY | 2018-09-20 08:10 | XMS REPORT | Continuity of Care Document ---
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 Evan Werner MD Primary Care Physician Unavailable Payers Type Date Identification Numbers Payment Provider Subscriber Policy Number: [id number] [facility] Excellus Elzbieta Pelayo PayID: [id number] [address] [address] [place] [address] Advance Directives Description No Information Available Problems Date Description Provider Status Onset: 10/14/2015 Acute maxillary sinusitis Nayely SReggie Fenstermacher, RPA-C Active Onset: 08/15/2016 Acute bronchitis Nayely SReggie Fenstermacher, RPA-C Active Onset: 10/19/2016 Allergic rhinitis due to pollen Nayely SReggie Fenstermacher, RPA -C Active Onset: 10/19/2016 Allergic rhinitis Nayely S. Fenstermacher, RPA-C Active Onset: 10/19/2016 Non-steroidal anti-inflammatory Nayely S. Fenstermacher, RPA -C Active drug adverse reaction Onset: 10/19/2016 Mild intermittent asthma Nayely SReggie Fenstermacher, RPA-C Active Onset: 02/06/2017 Allergy status to other drugs, Olivier Nelson MD Active medicaments and biological substances status Onset: 04/26/2017 Acute sinusitis Nayely SReggie Fenstermacher, RPA-C Active Onset: 09/25/2017 Chronic sinusitis Nayely Auguste, [facility] Active Family History Description No Information Available Social History Type Date Description Comments Sex Unknown Smoke-Free Home is smoke-free Tobacco Use Start: Unknown Patient has never smoked Smoking Status Reviewed: 08/29/18 Patient has never smoked Allergies, Adverse Reactions, Alerts Date Description Reaction Status Severity Comments 10/14/2015 Levaquin Active 10/14/2015 Augmentin Active 10/14/2015 Penicillin Active 10/14/2015 Bactrim Active 04/26/2017 Aspirin Active Medications Medication Date Status Form Strength Qnty SIG Indications Ordering Provider Levocetirizine 01/31 Active Tablets 5mg 30tab take 1 J30.1 Christopher Dihydrochlor /2017 s tablet (5 Leslie Nelson MD mg) by oral route once daily as needed Prednisone 01/31 Active Tablets 10mg 30tab Take 3 J45.20 s tablets Leslie Nelson MD by mouth [...] Nelson MD - by mouth 09/25 twice day x3 days. Take with food. Clarithromycin 04/26 Hx Tablets 500mg 28tab Take one J01.90 oph s tablet by Leslie Nelson MD - mouth Q12 / hours x1 days. Biaxin 11/24 Hx Tablets 500mg 28tab Take one oph s tablet by Leslie Nelson MD - mouth Q12 / hours x1 days. Omnaris 11/06 Hx Suspension 50mcg/Act 1unit [place] 2 s puffs Leslie Nelson MD - into each 04/25 nostril once daily. Qnasl 11/02 Hx Aerosol 80mcg/Act 1unit 2 puffs s each Leslie Nelson MD - nostril 04/25 Biaxin 08/15 Hx Tablets 500mg 28tab Take one J01.01 s tablet by Leslie Nelson MD - mouth Q12 / hours x1 days. Doxycycline 10/14 Hx Capsules [...] More Allergy 01/04/ Administered Injection Christopher Injection 2 Or 2016 Leslie Nelson MD More Allergy 12/28/ Administered Injection Christopher Injection 2 Or 2016 Leslie Nelson MD More Allergy 12/14/ Administered Injection Christopher Injection 2 Or 2016 Leslie Nelson MD More Allergy 12/07/ Administered Injection Christopher Injection 2 Or 2016 Leslie Nelson MD More Allergy 11/16/ Administered Injection Christopher Injection 2 Or 2016 [...] More Allergy 12/29/ Administered Injection Christopher Injection Or 2015 Leslie Nelson MD More Allergy 12/22/ Administered Injection Christopher Injection 2 Or 2015 Leslie Nelson MD More Allergy 11/22/ Administered Injection Christopher Injection Or 2015 Leslie Nelson MD More Allergy 11/04/ Administered Injection Christopher Injection 2 Or 2015 Leslie Nelson MD More Allergy 10/21/ Administered Injection Christopher Injection 2 Or 2015 Leslie Nelson MD More Immunizations [...] Facility Test Result H/L Range Note Order 08/29/2018 [facility] Nitric Oxide <pending> PFT Supplies <pending> PFT With Bronchodilator <pending> Order 08/15/2016 [facility] Celestone Administration <pending> Fee Celestone every 3mg <pending> Procedures Date Code Description Status 08/29/2018 76941 Nitric Oxide Gas Determination Completed 08/29/2018 40288 Bronchodilation Responsiveness Spirometry Pre/Post Completed Bronchodil Adm 01/24/2018 23115 Nitric Oxide Gas Determination Completed 01/24/2018 30387 Nitric Oxide Gas Determination Completed 01/24/2018 45531 Bronchodilation Responsiveness Spirometry Pre/Post Completed Bronchodil Adm 01/24/2018 79563 Bronchodilation Responsiveness Spirometry Pre/Post Completed Bronchodil Adm 02/06/2017 34967 Ingestion Challenge Test Sequential & Incremental Completed 02/01/2017 67752 Allergy Injection 2 Or More Completed 01/25/2017 30711 Allergy Injection 2 Or More Completed 01/18/2017 01441 Allergy Injection 2 Or More Completed 01/04/2017 18679 Allergy Injection 2 Or More Completed 12/28/2016 74128 Allergy Injection 2 Or More Completed 12/14/2016 02818 Allergy Injection 2 Or More Completed 12/07/2016 69209 Allergy Injection 2 Or More Completed 11/16/2016 32061 Allergy Injection 2 Or More Completed 11/02/2016 94238 Allergy Injection 2 Or More Completed 10/26/2016 38383 Allergy Injection 2 Or More Completed 08/15/2016 76421 Therapeutic, Prophylactic Or Diagnostic Injection Subq/Im Completed 03/30/2016 70697 Allergy Injection 2 Or More Completed 03/14/2016 28834 Allergy Antigens Single Or Multiple Completed 03/09/2016 30780 Allergy Injection 2 Or More Completed 02/17/2016 33296 Allergy Injection 2 Or More Completed 01/06/2016 57328 Allergy Injection 2 Or More Completed 12/30/2015 26238 Allergy Injection 2 Or More Completed 12/23/2015 86650 Allergy Injection 2 Or More Completed 11/23/2015 60094 Allergy Injection 2 Or More Completed 11/04/2015 63599 Allergy Injection 2 Or More Completed 10/21/2015 66595 Allergy Antigens Single Or Multiple Completed 10/21/2015 47521 Allergy Injection 2 Or More Completed Encounters Type Date Location Provider Dx Diagnosis Office Visit 08/29/2018 10:30a [facility] A[facility] J30.1 Allergic rhinitis due to pollen J45.20 Mild intermittent asthma, uncomplicated J30.89 Other allergic rhinitis Office Visit 01/31/2018 1:00p [facility] Astud[facility] J30.1 Allergic rhinitis due to pollen J30.89 Other allergic rhinitis J45.20 Mild intermittent asthma, uncomplicated Office Visit 01/24/2018 10:00a [facility] Astudillo J30.1 Allergic rhinitis due to pollen J30.89 Other allergic rhinitis J45.20 Mild intermittent asthma, uncomplicated Office Visit 09/25/2017 11:30a [place] Sandy J32.9 Chronic sinusitis, Fenstermacher, RPA-C unspecified Office Visit 04/26/2017 10:15a [place] Sandy J01.90 Acute sinusitis, Fenstermacher, RPA-C unspecified J30.1 Allergic rhinitis due to pollen J30.89 Other allergic rhinitis J45.20 Mild intermittent asthma, uncomplicated Office 10/19/2016 Danial[place] Sandy T39.395A Adverse effect of Visit 10:45a Fenstermacher, nonsteroidal RPA-C anti-inflammatory drugs, init J45.20 Mild intermittent asthma, uncomplicated J30.1 Allergic rhinitis due to pollen J30.89 Other allergic rhinitis Office Visit 08/15/2016 3:00p Danial Sandy J01.01 Acute recurrent Fenstermacher, RPA-C maxillary sinusitis J20.9 Acute bronchitis, unspecified Office Visit 10/14/2015 11:30a [place] Sandy J01.01 Acute recurrent Fenstermacher, RPA-C maxillary sinusitis Plan of Treatment Future Appointment(s):02/27/2019 10:30 am - [facility] Angulo [id number] - [facility] AnguloJ30.1 Allergic rhinitis due to eivvmyE55.20 Mild intermittent asthma, uncomplicatedComments:Patient's PFT shows mild obstruction and exhaled nitric oxide is elevated at 47 ppb. Exhaled nitricoxide 6 months ago was 58 ppb. Patient to use Advair for prophylaxis of his lungs and Ventolin for breakthrough chest symptoms. Patient advised to INCREASE dose of Advair from 1 puff once a day to 1 puff in the morning and 1 puff in the evening . Patient to use Nasonex for prophylaxis of his nose and Xyzal for breakthrough nasal symptoms.Warm salt water gargles will help postnasal drip as well as clear palate after use of Advair.Follow up:6 months, PFT and NIOX oyzmgH18.89 Other allergic rhinitis
[2018-09-20 08:18] VITALS: BP 131/72
--- NOTE | 2018-09-20 08:50 | UC ---
Throat Pain/Nasal Eugenio HPI - HPI Summary HPI Summary: 52 y/o male with 10 days hx of sinus pain and pressure, + nasal congestion , pnd, cough no fever, no chills hx of recurrent sinus infection - History of Current Complaint Chief Complaint: UCRespiratory Stated Complaint: SINUS COUGH Time Seen by Provider: 09/20/18 08:34 Hx Obtained From: Patient Onset/Duration: Gradual Onset, Lasting Days - 10, Still Present Severity: Moderate Pain Intensity: 3 Cough: Nonproductive Associated Signs & Symptoms: Positive: Sinus Discomfort, Nasal Discharge. Negative: Dysphagia, FB Sensation, Drooling, Wheezing, Hoarseness, Fever, Vomiting, Rash - Allergies/Home Medications Allergies/Adverse Reactions: Allergies Allergy/AdvReac Type Severity Reaction Status Date / Time amoxicillin [From Augmentin] Allergy Hives Verified 09/20/18 08:23 aspirin Allergy Congestion-Pt Verified 09/20/18 08:23 can tolerate at low dose clavulanic acid Allergy Hives Verified 09/20/18 08:23 [From Augmentin] ibuprofen Allergy Unknown Verified 09/20/18 08:23 Reaction Details levofloxacin [From Levaquin] Allergy tendinitis Verified 09/20/18 08:23 sulfamethoxazole Allergy Swelling Verified 09/20/18 08:23 [From Bactrim] trimethoprim [From Bactrim] Allergy Swelling Verified 09/20/18 08:23 Home Medications: Home Medications Acetaminophen [Acetaminophen Extra Strength] 500 mg PO BID PRN 09/20/18 [ History Confirmed 09/20/18] Mometasone Furoate [Nasonex] 50 mcg NA DAILY 09/20/18 [History Confirmed ] PMH/Surg Hx/FS Hx/Imm Hx - Additional Past Medical History Additional PMH: [facility] Respiratory History: Asthma - Surgical History Surgical History: Yes Surgery Procedure, Year, and Place: sinus surgery, bilateral FESS surgeries for sinus, deviated septum, umb. hernia repair, lt shoulder surgery LABRAL REPAIR ; undescended testicle;LASIK EYE SURGERY, right EYE IMPLANT (INTACS LENS IMPLANT)SCANNED INTO OTHER FACILITIES REPORTS-SPOKE TO DR LAUGHLIN, HE SAID TO GET ORBIT XRAYS TO BE SURE BUT THINKS ITS AND ACRYLIC SUBSTANCE. ( XRAYS DONE - CLEARED BY DR COLON) - Family History Known Family History: Positive: Cardiac Disease - Social History Alcohol Use: Occasionally Alcohol Amount: WEEKENDS Substance Use Type: Marijuana Substance Use Comment - Amount & Last Used: occassionally edible THC-last used 08/2018 Smoking Status (MU): Never Smoked Tobacco Have You Smoked in the Last Year: No - Immunization History Most Recent Influenza Vaccination: June 2016 Most Recent Tetanus Shot: 05/18/17 Vaccination Up to Date: No Review of Systems All Other Systems Reviewed And Are Negative: Yes Constitutional: Positive: Negative Skin: Positive: Negative Eyes: Positive: Negative ENT: Positive: Nasal Discharge, Sinus Congestion, Sinus Pain/Tenderness. Negative: Dental Pain, Sore Throat, Ear Ache Respiratory: Positive: Negative Cardiovascular: Positive: Negative Is Patient Immunocompromised?: No Physical Exam Triage Information Reviewed: Yes Appearance: Well-Appearing, No Pain Distress, Well-Nourished Vital Signs: Initial Vital Signs Temp 97.4 F 09/20/18 08:11 Pulse 71 09/20/18 08:11 Resp 18 09/20/18 08:11 BP 131/72 09/20/18 08:11 Pulse Ox 100 09/20/18 08:11 Vital Signs Reviewed: Yes Eye Exam: Normal Eyes: Positive: Conjunctiva Clear ENT: Positive: Normal ENT inspection, Hearing grossly normal, Pharyngeal erythema, Nasal congestion, Nasal drainage, TMs normal, Sinus tenderness. Negative: TM bulging, TM dull, TM red, Tonsillar swelling, Tonsillar exudate Neck: Positive: Supple, Nontender, No Lymphadenopathy Respiratory: Positive: Chest non-tender, Lungs clear, Normal breath sounds Cardiovascular: Positive: RRR, No Murmur, Pulses Normal Throat Pain/Nasal Course/Dx - Differential Dx/Diagnosis Provider Diagnosis: Sinusitis Discharge - Sign-Out/Discharge Documenting (check all that apply): Patient Departure All imaging exams completed and their final reports reviewed: No Studies - Discharge Plan Condition: Stable Disposition: HOME Prescriptions: DOXYcycline CAP(*) [DOXYcycline 100MG CAP(*)] 100 mg PO BID #20 cap predniSONE [Prednisone 20 MG TAB] 20 mg PO BID #10 tablet Patient Education Materials: Sinusitis (ED) Referrals: Evan Werner MD [Primary Care Provider] - - Billing Disposition and Condition Condition: STABLE Disposition: Home
== END 2018-09-20 08:55 | disposition home or self-care (01) ==
LOC: UCCORT 07:56
DX: J32.9 Chronic sinusitis, unspecified (principal); Z88.0 Allergy status to penicillin; Z88.6 Allergy status to analgesic agent; Z88.8 Allergy status to other drugs, medicaments and biological substances; Z88.1 Allergy status to other antibiotic agents
CPT/HCPCS: 99212; G0463

== ENCOUNTER 2019-01-28 07:08 | Emergency (ER) | payer BC ==
--- OUTSIDE RECORDS SUMMARY | 2019-01-28 07:15 | XMS REPORT | Continuity of Care Document ---
:1965 External Reference #:[id number] Author Name Sahara Babb Care Team Providers Name Role Phone Evan Werner MD Primary Care Physician Unavailable Payers Date Identification Numbers Payment Provider Subscriber Effective: 2012 Policy Number: [id number] [employer] Elzbieta Pelayo PayID: [id number] [address] [address] [place] [address] Effective: 2012 Policy Number: [id number] [employer] Ppo Elzbieta Pelayo PayID: [id number] [address] [address] [place] [address] Advance Directives Description No Information Available Problems Active Problems Provider Date Weakness of limb Toby Espinoza M.D. Onset: 01/25/2015 Knee pain Jaenna Seals MD Onset: 03/30/2016 Localized, primary osteoarthritis Jeanna Seals MD Onset: 03/30/2016 Obesity Jeanna Seals MD Onset: 03/30/2016 Pain in limb Jeanna Seals MD Onset: 08/31/2016 Abnormal findings on diagnostic imaging of Jeanna Seals MD Onset: 12/07/2016 limbs Chronic recurrent sinusitis Onset: 06/24/2015 Gastroesophageal reflux disease Onset: 06/24/2015 Impotence of organic origin Onset: 08/29/2011 Backache Onset: 08/29/2011 Asthma without status asthmaticus Onset: 08/29/2011 Low back pain Onset: 08/29/2011 Hyperlipidemia Onset: 08/15/2011 Family History Date Family Member(s) Observation Comments General Cancer General Heart Disease General Hyperthyroidism Father due to Lung Cancer Mother No Current Problems Social History Type Date Description Comments Sex Unknown Marital Status 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 Tobacco Use Start: Unknown Never Smoked Cigarettes ETOH Use Occasionally consumes alcohol Tobacco Use Reviewed: 06/06/17 Patient has never smoked Recreational Drug Use Denies Drug Use Smoking Status Reviewed: 01/16/19 Patient has never smoked Exercise Type/Frequency Exercises regularly Allergies, Adverse Reactions, Alerts Active Allergies Reaction Severity Comments Date Augmentin 10/26/2009 Levaquin 06/30/2014 Ibuprofen wheezing.lung 09/21/2016 congestion,productive cough,nasal congestion Sulfa Drugs 01/24/2017 Penicillin 09/20/2018 Cefprozil 09/20/2018 Sulfamethoxazole / Trimethoprim 09/20/2018 Sulfa Antibiotics 09/20/2018 Inactive Allergies Cefprozil 09/20/2018 Medications Active Medications SIG Qnty Indications Ordering Date Provider Systane apply twice 15ml Evan Mosqueda 01/16/2019 0.4-0.3% Solution daily as needed M.DReggie for dry eyes Neoprene Knee Use daily as 2units M25.569 Evan Mosqueda 01/16/2019 Stabilizer/Medium needed for M.D. [facility] [place] Omeprazole 1 by mouth every 90caps K29.70 Evan 01/16/[address] ira Werner MD Hydrochlorothiazide 1 by mouth every 90tabs I10 Evan 06/26/2018 12.5mg day Werner, Tablets Mometasone Furoate 2 Sprays Each 34gm Juan Manuel 11/13/2017 50mcg/Act Nostril Twice A Brooks Malcolm Suspension Day Saline Use as directed 3Liters Juan Manuel 08/22/2011 0.9% Solution for sinus Brooks Malcolm irrigation Proventil HFA 2 puffs q4h prn Unknown Aspirin Adult Low Dose 1 by mouth every Unknown 81mg day Tablets DR Negron HFA Unknown 108(90Base) mcg/Act Aerosol Aspirin Low Dose Adult 1 / day Unknown 81mg Chewtabs History Medications Prednisone 4 tabs daily for 5 32tabs Juan Manuel 10/09/2017 - 10mg Tablets days, then 3 tabs Brooks Malcolm 10/22/2017 daily for 2 days, then 2 tab daily for 2 days, then 1 tab daily for 2 days Pulmicort add 1 respule to 120ml Juan Manuel 02/13/2017 - 0.5mg/2ML saline (pt will Brooks Malcolm 04/14/2017 Suspension supply own) as directed and irrigate sinuses twice daily Celebrex 1 tab by mouth 7caps Evan 02/05/2017 - 100mg Capsules twice a day as Brooks Mosqueda 02/05/2017 needed Cyanocobalamin take one 90tabs Evan 01/24/2017 - 2500mcg capsule/tablet Brooks Mosqueda 02/12/2017 Tablets Sub daily sublingually Methylprednisolone take as directed 1pamy Zambrano 12/26/2016 - 4mg TBPK Brooks Malcolm 01/24/2017 Doxazosin Mesylate 1 by mouth every 90tabs I10 Evan 07/18/2016 - 2mg day Debbi 05/28/2017 Tablets Mirapex 1 tablet 2-3 hours 30tabs G25.8 Evan 09/07/2015 - 0.125mg Tablets before sleep 1 Debbi, 02/22/2016 [facility] Juan Manuel 05/04/2015 - 1mg/3Days every 72 hours as Brooks Malcolm 05/26/2015 Patches 72HR needed fo seasickness Omeprazole 1 by mouth b.i.d 30caps 530.8 Evan 03/04/2014 - 40mg Capsules DR Karen Werner, 06/14/2015 MD Lorenzo 2 p.o.q 6 h prn 50tabs 726.1 Kulwant Okeefe 08/30/2011 - 5-500mg Tablets pain 0 CrysDReggie 05/28/2012 Clarithromycin 1 PO bid x 14 Days 28tachristen Zambrano 08/22/2011 - 500mg Tablets Brooks Malcolm 08/30/2011 Cefdinir 1 PO bid for 14 28caps Juan Manuel 08/22/2011 - 300mg Capsules days Brooks Malcolm 05/28/2012 Dicyclomine HCL Evan 08/15/2011 - 20mg Tablets Debbi 08/29/2011 MD Joe Gordon 08/15/2011 - 20mg Capsules DR Werner, 04/01/2014 MD Harris sig 1 po q8h prn 40tabs 726.1 Kulwant Okeefe, 07/28/2011 - 50mg Tablets 0 M.DReggie 08/22/2011 Veramyst spray 2 sprays in 1units [facility] 05/23/2011 - 27.5mcg/La[place] each nostril daily Brooks Malcolm 05/28/2012 Suspension Bactroban Nasal mix 1/3 of tube 30gm Juan Manuel 05/19/2010 - 0.9% Ointment with 1 liter of Brooks Malcolm 05/28/2012 sterile saline and irrigate nose twice a day Sterile Saline to due with 3Liters Juan Manuel 05/19/2010 - bactiban uses qid Brooks Malcolm 05/28/2012 Veramyst [place] 2 Sprays In 1units 473.2 [facility] 11/16/2009 - 27.5mcg/La[place] Each Nostril Daily Brooks Malcolm 05/28/2012 Suspension Singulair 1 tab daily 1Month 471.8 [facility] 11/16/2009 - 10mg Tablets Brooks Malcolm 08/22/2011 Medrol (Bryan) Take as directed 1pack 471.8 [facility] 10/26/2009 - 4mg Tablets Brooks Malcolm 11/16/2009 Nasonex 2 sprays to each 1month 471.8 [facility] 10/26/2009 - 50mcg/Act Suspension nostril daily Brooks Malcolm 11/16/2009 Omnicef 1 by mouth twice a 28caps 471.8 [facility] 10/26/2009 - 300mg Capsules day for 14 days Brooks Malcolm 05/23/2011 Sodium Chloride 0.9% use as directed 3000units Juan Manuel 10/26/2009 - 0.9% For Sinus Brooks Malcolm 01/15/2015 Solution Irrigation Budesonide as directed Unknown - 1mg/2ML Suspension 01/16/2019 Clarithromycin 1 by mouth every 14tabs Unknown - 500mg Tablets day 10/22/2017 Sodium Chloride Unknown - 0.9% Solution 01/16/2019 Pravastatin Sodium take 1 tablet by 90tabs Evan - 20mg mouth once daily Debbi, 04/01/2014 Tablets Androgel Pump Unknown - 20.25mg/Act 09/07/2015 (1.62%) Gel Fluticasone Propionate Unknown - 02/28/2018 50mcg/Act Suspension Dymista 1 spray ea nares 1 Unknown - 137-50mcg/Act time daily 06/14/2015 Suspension Doxycycline Hyclate take 2 days before Unknown - 100mg leaving and 28 07/07/2015 Capsules days upon returning Azelastine HCL (Nasal) Unknown - 0.1% 02/28/2018 Solution Naproxen Unknown - 500mg Tablets 02/28/2018 Mupirocin Unknown - 2% Ointment 02/28/2018 Advair HFA 2 puff / 2 day Omar, - 230-21mcg/Act Olivier, 06/26/2018 Aerosol Omnaris 2 puffs both sides Unknown - 50mcg/Act Suspension once a day 02/06/2017 Clarithromycin 1 tab by mouth Unknown - Tablets twice a day x 14 12/18/2016 days. Given another prescription for another 14 days after original and has 7 days left. Omeprazole 1 by mouth every Unknown - 20mg Capsules DR ira 10/01/2017 Androgel apply1.25 gm to Unknown - 20.25mg/1.25GM area sparingly 11/29/2016 (1.62%) Gel every day Pantoprazole Sodium 1 by mouth twice a 90tabs Unknown - 40mg day 09/20/[address] Ellison 2 squirts in each 30ml Unknown - 137mcg/Laurel Solution nostril twice a 11/02/2014 day Flonase 2 intranasal puff 1units Unknown - 50mcg/Act Suspension to each nostril 12/06/2016 daily Nasonex 1 spray kristy each 1Mon Unknown - 50mcg/Act Suspension side every day 06/30/2014 Advair Diskus 1 puff by mouth Unknown - 250-50mcg/Dose twice a day 11/02/2014 Aerosol Zantac 150 Maximum 1 po bid 60tabs Unknown - Strength 04/21/2014 150mg Tablets Lovaza 1 po bid 180caps Unknown - 1gm Capsules 04/21/2014 Prilosec OTC Unknown - 04/21/2014 Nexium Unknown - 01/18/2010 Medications Administered in Office Medication SIG Qnty Indications Ordering Provider Date Celestone 3 mg and 3mg Luis Little MD 05/11/2017 Injection Immunizations CPT Code Status Date Vaccine Lot # [id number] Given 02/25/2018 Tdap - Tetanus/Diptheria/Acellular Pertussis 20844 Given 06/29/2014 Influenza Virus 3Yrs & Over [id number] Given 07/12/2013 Influenza Virus 3Yrs & Over 75870 Given 07/22/2010 Pneumonia Vaccine [id number] Given 07/22/2010 Tdap - Tetanus/Diptheria/Acellular Pertussis Vital Signs Date Vital Result Comment 01/16/2019 3:28pm Weight 192.00 lb BP Systolic 152 mmHg BP Diastolic 84 mmHg 01/16/2019 10:11am Height 68 inches 5'8" Weight 192.50 lb Heart Rate 60 /min BP Systolic Sitting 122 mmHg BP Diastolic Sitting 78 mmHg Pain Level 3 O2 % BldC Oximetry 98 % BMI (Body Mass Index) 29.3 kg/m2 07/19/2018 10:03am Height 68 inches 5'8" Weight 186.00 lb Heart Rate 55 /min BP Systolic Sitting 122 mmHg BP Diastolic Sitting 77 mmHg Respiratory Rate 14 /min Pain Level 3 BMI (Body Mass Index) 28.3 kg/m2 06/26/2018 11:39am Height 67 inches Weight 184.00 lb BP Systolic 136 mmHg BP Diastolic 88 mmHg BMI (Body Mass Index) 28.8 kg/m2 01/21/2018 2:36pm Height 68 inches 5'8" Weight 195.00 lb BP Systolic Sitting 140 mmHg BP Diastolic Sitting 80 mmHg Pain Level 5 BMI (Body Mass Index) 29.6 kg/m2 01/07/2018 1:53pm Height 68 inches 5'8" Weight 195.00 lb BP Systolic Sitting 124 mmHg BP Diastolic Sitting 80 mmHg Pain Level 7 BMI (Body Mass Index) 29.6 kg/m2 12/17/2017 10:43am Height 68 inches 5'8" Weight 195.38 lb Heart Rate 66 /min BP Systolic Sitting 146 mmHg BP Diastolic Sitting 87 mmHg Respiratory Rate 14 /min Pain Level 5 BMI (Body Mass Index) 29.7 kg/m2 12/06/2017 8:40am Height 68 inches 5'8" Weight 190.00 lb Heart Rate 66 /min BP Systolic Sitting 128 mmHg BP Diastolic Sitting 76 mmHg Respiratory Rate 20 /min Pain Level 2 BMI (Body Mass Index) 28.9 kg/m2 11/13/2017 3:51pm Height 68 inches 5'8" Weight 194.00 lb Heart Rate 66 /min BP Systolic Sitting 144 mmHg BP Diastolic Sitting 84 mmHg Respiratory Rate 16 /min Pain Level 0 BMI (Body Mass Index) 29.5 kg/m2 10/09/2017 3:22pm Height 68 inches 5'8" Weight 194.00 lb Heart Rate 62 /min BP Systolic Sitting 126 mmHg BP Diastolic Sitting 74 mmHg Respiratory Rate 18 /min Pain Level 0 BMI (Body Mass Index) 29.5 kg/m2 06/06/2017 3:04pm Height 67.25 inches Weight 191.00 lb Heart Rate 60 /min BP Systolic 128 mmHg BP Diastolic 80 mmHg Respiratory Rate 16 /min BMI (Body Mass Index) 29.7 kg/m2 06/04/2017 3:28pm Height 68 inches 5'8" Weight 194.00 lb Heart Rate 59 /min BP Systolic Sitting 125 mmHg BP Diastolic Sitting 80 mmHg Respiratory Rate 14 /min Pain Level 2 BMI (Body Mass Index) 29.5 kg/m2 05/11/2017 10:29am Height 68 inches 5'8" Weight 192.00 lb Heart Rate 64 /min BP Systolic Sitting 116 mmHg BP Diastolic Sitting 72 mmHg Respiratory Rate 17 /min Pain Level 2 BMI (Body Mass Index) 29.2 kg/m2 03/29/2017 9:33am Height 68 inches 5'8" Weight 192.00 lb Heart Rate 49 /min BP Systolic Sitting 116 mmHg BP Diastolic Sitting 73 mmHg Body Temperature 97.0 F Pain Level 3 BMI (Body Mass Index) 29.2 kg/m2 02/13/2017 3:23pm Height 68 inches 5'8" Weight 197.00 lb Heart Rate 78 /min BP Systolic Sitting 128 mmHg BP Diastolic Sitting 78 mmHg Respiratory Rate 17 /min O2 % BldC Oximetry 97 % ra BMI (Body Mass Index) 30.0 kg/m2 01/24/2017 10:42am Height 68 inches 5'8" Weight 197.00 lb Heart Rate 65 /min BP Systolic Sitting 132 mmHg BP Diastolic Sitting 81 mmHg Body Temperature 97.0 F Pain Level 3 BMI (Body Mass Index) 30.0 kg/m2 12/28/2016 2:35pm Height 68 inches 5'8" Weight 195.00 lb Heart Rate 72 /min BP Systolic Sitting 124 mmHg BP Diastolic Sitting 68 mmHg Respiratory Rate 16 /min Pain Level 0 BMI (Body Mass Index) 29.6 kg/m2 12/26/2016 3:46pm Height 68 inches 5'8" Weight 195.00 lb Heart Rate 72 /min BP Systolic Sitting 124 mmHg BP Diastolic Sitting 76 mmHg Respiratory Rate 17 /min Pain Level 0 BMI (Body Mass Index) 29.6 kg/m2 12/07/2016 3:37pm Heart Rate 72 /min BP Systolic 134 mmHg BP Diastolic 96 mmHg Respiratory Rate 16 /min Pain Level 3 O2 % BldC Oximetry 96 % 11/30/2016 3:41pm Weight 195.00 lb Heart Rate 72 /min BP Systolic 120 mmHg BP Diastolic 88 mmHg Respiratory Rate 16 /min Pain Level 3 O2 % BldC Oximetry 95 % 09/21/2016 4:10pm Heart Rate 87 /min BP Systolic Sitting 116 mmHg BP Diastolic Sitting 86 mmHg Pain Level 0 O2 % BldC Oximetry 97 % 08/31/2016 1:56pm Height 68 inches 5'8" Weight 190.00 lb per patient BP Systolic Sitting 112 mmHg BP Diastolic Sitting 68 mmHg Pain Level 2 BMI (Body Mass Index) 28.9 kg/m2 07/18/2016 3:53pm Weight 189.00 lb BP Systolic 110 mmHg BP Diastolic 88 mmHg 06/29/2016 10:45am Height 68 inches 5'8" Weight 187.00 lb BP Systolic 124 mmHg BP Diastolic 80 mmHg BMI (Body Mass Index) 28.4 kg/m2 06/08/2016 3:10pm Height 68 inches 5'8" Weight 200.00 lb BP Systolic 122 mmHg BP Diastolic 68 mmHg BMI (Body Mass Index) 30.4 kg/m2 06/05/2016 3:04pm Height 67.50 inches Weight 189.50 lb Heart Rate 68 /min BP Systolic 128 mmHg BP Diastolic 92 mmHg Respiratory Rate 16 /min Body Temperature 98.5 F BMI (Body Mass Index) 29.2 kg/m2 04/27/2016 2:48pm Heart Rate 88 /min BP Systolic Sitting 126 mmHg BP Diastolic Sitting 88 mmHg 03/30/2016 4:23pm Height 68 inches 5'8" Weight 200.00 lb BMI (Body Mass Index) 30.4 kg/m2 02/22/2016 3:51pm Weight 196.00 lb BP Systolic 132 mmHg BP Diastolic 98 mmHg 09/07/2015 9:27am Weight 200.00 lb BP Systolic 128 mmHg BP Diastolic 72 mmHg 07/07/2015 3:49pm Weight 198.00 lb BP Systolic 130 mmHg BP Diastolic 80 mmHg 06/24/2015 4:07pm Weight 200.50 lb BP Systolic 126 mmHg BP Diastolic 88 mmHg 05/27/2015 9:15am Height 68 inches 5'8" Weight 200.00 lb Heart Rate 68 /min BP Systolic Sitting 140 mmHg BP Diastolic Sitting 90 mmHg BMI (Body Mass Index) 30.4 kg/m2 05/26/2015 2:59pm Height 67.55 inches Weight 199.00 lb Heart Rate 72 /min BP Systolic 122 mmHg BP Diastolic 70 mmHg Body Temperature 98.2 F BMI (Body Mass Index) 30.7 kg/m2 01/25/2015 8:56am Height 68 inches 5'8" Weight 200.00 lb Heart Rate 72 /min BP Systolic Sitting 118 mmHg BP Diastolic Sitting 84 mmHg Respiratory Rate 16 /min BMI (Body Mass Index) 30.4 kg/m2 11/24/2014 3:46pm Weight 202.50 lb BP Systolic 118 mmHg BP Diastolic 84 mmHg 11/24/2014 11:32am Heart Rate 76 /min BP Systolic Sitting 124 mmHg BP Diastolic Sitting 80 mmHg 11/03/2014 11:00am Heart Rate 60 /min BP Systolic Sitting 112 mmHg BP Diastolic Sitting 80 mmHg 10/27/2014 4:29pm Weight 202.00 lb BP Systolic 130 mmHg BP Diastolic 80 mmHg 07/30/2014 3:39pm Weight 201.50 lb BP Systolic 148 mmHg BP Diastolic 88 mmHg 06/30/2014 3:31pm Heart Rate 82 /min BP Systolic Sitting 128 mmHg BP Diastolic Sitting 86 mmHg 06/24/2014 11:16am Weight 199.00 lb BP Systolic 132 mmHg BP Diastolic 84 mmHg 06/05/2014 9:59am Weight 196.50 lb Heart Rate 56 /min BP Systolic 128 mmHg BP Diastolic 86 mmHg 04/29/2014 4:00pm Height 67 inches Weight 196.00 lb Heart Rate 64 /min BP Systolic 142 mmHg BP Diastolic 82 mmHg Respiratory Rate 16 /min Body Temperature 98.0 F BMI (Body Mass Index) 30.7 kg/m2 04/21/2014 11:10am Weight 195.00 lb Heart Rate 78 /min BP Systolic Sitting 120 mmHg BP Diastolic Sitting 78 mmHg 08/30/2011 9:52am Height 68 inches 5'8" Weight 191.00 lb Heart Rate 80 /min BP Systolic Sitting 124 mmHg BP Diastolic Sitting 80 mmHg BMI (Body Mass Index) 29.0 kg/m2 08/29/2011 10:26am Weight 190.50 lb BP Systolic 128 mmHg BP Diastolic 90 mmHg 07/28/2011 10:39am Height 68 inches 5'8" Weight 192.00 lb BP Systolic Sitting 120 mmHg BP Diastolic Sitting 100 mmHg BMI (Body Mass Index) 29.2 kg/m2 04/19/2010 2:31pm Heart Rate 80 /min BP Systolic 128 mmHg BP Diastolic 82 mmHg 10/26/2009 3:05pm Heart Rate 76 /min BP Systolic Sitting 124 mmHg BP Diastolic Sitting 80 mmHg Results Test Date Facility Test Result H/L Range Note Laboratory test 07/02/2018 N2N[facility]D Import C-Reactive 1.80 mg/L 1 finding Protein,Cardia c CK 144 U/L 39-308 Basic Metabolic Panel 07/02/2018 N2N/CCD Import Anion Gap 5 mEq/L Low 8- 16 BUN 12 mg/dL 7-18 BUN/Creat 13.3 ratio Calcium 8.5 mg/dL 8.5-10.1 Carbon Dioxide 28 mmol/L 21-32 Chloride 111 mmol/L High 98-107 Creatinine 0.9 mg/dL 0.6-1.3 Glom Filtration Rate, Estimate >60 mL/min Glucose 84 mg/dL 74-106 If >60 mL/min 2 Potassium 3.8 mmol/L 3.5-5.1 Sodium 144 mmol/L 136-145 Homocyst(E)Ine, P/S 07/02/2018 [facility] Import Homocyst(e)ine, P/S 11.2 umol /L 0-15 3 LDL Cholesterol 07/02/2018 [facility] Import Cholesterol 169 mg/dL 4 Profile HDL Cholesterol 44 mg/dL 5 LDL-Cholesterol 86 mg/dL 6 Triglycerides 194 mg/dL High 7 Laboratory test 08/26/2017 [facility] Import Slide Review (See Note) 8, 9 finding CBS W/Automated Diff 08/26/2017 N2N/[facility] Import Bas% 0.2 % 0-1.1 Baso # 0.03 K/uL 0-0.1 Eo% 0.8 % 0-6.6 Eos # 0.12 K/uL 0-0.5 Hematocrit 41.5 % 38-48 Hemoglobin 14.2 gm/dL 12.8-17 Lymph # 1.81 K/uL 1-4 Lymph % 11.7 % Low 20-42 Mean Cell Volume 86.5 fl 80-96 Mean Corpuscular HGB 29.6 pg 27-33 Mean Corpuscular HGB Conc 34.2 g/dL 31.7-36 Mean Platelet Volume 8.5 fL 6.6-10.6 [place] # 1.65 K/uL High 0-0.8 [place] % 10.7 % High 0-10 Neut# 11.82 K/uL High 1.8-7 Neut% 76.6 % High 33-73 Platelet Count 378 K/uL High 155-360 Red Blood Count 4.80 M/uL 4.2-5.8 Red Cell Distri Width %CV 12.3 % 11.6-15.8 Red Cell Distri Width SD 38.2 fl 36-51 White Blood Count 15.4 K/uL High 3.4-10.5 Comprehensive Metabolic Panel 08/26/2017 N2N/[facility]D Import Alb/Glob 0.9 ratio Albumin 3.3 g/dL Low 3.4-5 Alkaline Phosphatase 53 U/L 45-117 Anion Gap 7 mEq/L Low 8-16 BUN 10 mg/dL 7-18 BUN/Creat 11.1 ratio Bilirubin,Total 0.4 mg/dL 0.2-1 Calcium 8.5 mg/dL 8.5-10.1 Carbon Dioxide 30 mmol/L 21-32 Chloride 102 mmol/L 98-107 Creatinine 0.9 mg/dL 0.6-1.3 Globulin 3.6 g/dL 1.9-4.3 Glom Filtration Rate, Estimate >60 mL/min Glucose 87 mg/dL 74-106 If >60 mL/min 10 Potassium 3.6 mmol/L 3.5-5.1 SGPT/Alt 35 U/L 12-78 Sgot/Ast 14 U/L Low 15-37 11 Sodium 139 mmol/L 136-145 Total Protein 6.9 g/dL 6.4-8.2 Urinalysis With 08/26/2017 N[employer] Import Source: Urine, Clean Cat 12 Microscopic <See Note> Urine Bacteria Very Few Urine Bilirubin - Dipstick Negative Urine Blood Negative Urine Clarity Clear Urine Color Yellow Urine Epithelial Cells Very Few /lpf Urine Glucose - Dipstick Negative mg/dL Urine Ketone Negative mg/dL Urine Leuk Esterase Trace Abnormal Urine Nitrite - Dipstick Negative Urine PH 6.0 1 Low 6.5-7.5 Urine Protein - Dipstick Negative mg/dL Urine RBC None Seen rbc/hpf 0-2 Urine Specific [place] <=1.005 Low 1.01-1.03 Urine Urobilinogen - Dipstick 0.2 E.U./dL 0.2-1 Urine WBC 0-2 wbc/hpf 0-7 Laboratory test finding 08/15/2017 [employer] Import Source: Urine, Clean Cat 13 <See Note> Urine Bilirubin - Dipstick Negative Urine Blood Negative Urine Clarity Clear Urine Color Yellow Urine Glucose - Dipstick Negative mg/dL Urine Ketone Negative mg/dL Urine Leuk Esterase Negative Urine Nitrite - Dipstick Negative Urine PH 8.5 1 High 6.5-7.5 Urine Protein - Dipstick Trace mg/dL Urine Specific [place] 1.015 1 1.01-1.03 Urine Urobilinogen - Dipstick 0.2 E.U./dL 0.2-1 Influenza A/B Antigen 08/15/2017 [facility] Import Influenza A Antigen Negative Influenza B Antigen Positive Abnormal 14 Laboratory test finding 08/15/2017 [facility] Import CK 132 U/L 39-308 15 Lab Reflex >2.0 for Sepsis? Y Lactic Acid 2.0 mmol/L High 0.4-1.9 16 Troponin-I < 0.015 ng/mL 17 Blood Culture 08/15/2017 [facility]N[employer] Import Blood Culture No Growth: Final 18 Aerobic <See Note> Blood Culture Aerobic No Growth: Final <See Note> 19 Blood Culture Anaerobic No Growth: Final <See Note> 20 Blood Culture Anaerobic No Growth: Final <See Note> 21 Comprehensive Metabolic Panel 08/15/2017 N2N/[facility]D Import Alb/Glob 1.0 ratio Albumin 3.6 g/dL 3.4-5 Alkaline Phosphatase 48 U/L 45-117 Anion Gap 8 mEq/L 8-16 BUN 17 mg/dL 7-18 BUN/Creat 15.4 ratio Bilirubin,Total 0.4 mg/dL 0.2-1 Calcium 8.2 mg/dL Low 8.5-10.1 Carbon Dioxide 26 mmol/L 21-32 Chloride 104 mmol/L 98-107 Creatinine 1.1 mg/dL 0.6-1.3 Globulin 3.6 g/dL 1.9-4.3 Glom Filtration Rate, Estimate >60 mL/min Glucose 106 mg/dL 74-106 If >60 mL/min 22 Potassium 3.6 mmol/L 3.5-5.1 SGPT/Alt 41 U/L 12-78 Sgot/Ast 16 U/L 15-37 Sodium 138 mmol/L 136-145 Total Protein 7.2 g/dL 6.4-8.2 CBS W/Automated Diff 08/15/2017 N2N/CCD Import Bas% 0.1 % 0-1.1 Baso # 0.01 K/uL 0-0.1 Eo% 0.3 % 0-6.6 Eos # 0.02 K/uL 0-0.5 Hematocrit 47.1 % 38-48 Hemoglobin 16.2 gm/dL 12.8-17 Lymph # 0.71 K/uL Low 1-4 Lymph % 10.1 % Low 20-42 Mean Cell Volume 86.4 fl 80-96 Mean Corpuscular HGB 29.7 pg 27-33 Mean Corpuscular HGB Conc 34.4 g/dL 31.7-36 Mean Platelet Volume 9.2 fL 6.6-10.6 [place] # 0.69 K/uL 0-0.8 [place] % 9.9 % 0-10 Neut# 5.57 K/uL 1.8-7 Neut% 79.6 % High 33-73 Platelet Count 200 K/uL 150-400 Red Blood Count 5.45 M/uL 4.2-5.8 Red Cell Distri Width %CV 13.0 % 11.6-15.8 Red Cell Distri Width SD 40.4 fl 36-51 White Blood Count 7.0 K/uL 3.4-10.5 LDL Cholesterol Profile 06/12/2017 [facility] Import Cholesterol 196 mg/dL 23, 24 HDL Cholesterol 48 mg/dL 25 LDL-Cholesterol 109 mg/dL 26 Triglycerides 196 mg/dL High 27 CBC 06/12/2017 [employer] Import Hematocrit 46.3 % 38-48 Hemoglobin 16.0 gm/dL 12.8-17 Mean Cell Volume 86.4 fl 80-96 Mean Corpuscular HGB 29.9 pg 27-33 Mean Corpuscular HGB Conc 34.6 g/dL 31.7-36 Mean Platelet Volume 9.6 fL 6.6-10.6 Platelet Count 269 K/uL 150-400 Red Blood Count 5.36 M/uL 4.2-5.8 Red Cell Distri Width %CV 13.0 % 11.6-15.8 White Blood Count 4.9 K/uL 3.4-10.5 Basic Metabolic Panel 06/12/2017 [employer] Import Anion Gap 4 mEq/L Low 8- 16 BUN 16 mg/dL 7-18 BUN/Creat 17.7 ratio Calcium 9.1 mg/dL 8.5-10.1 Carbon Dioxide 31 mmol/L 21-32 Chloride 108 mmol/L High 98-107 Creatinine 0.9 mg/dL 0.6-1.3 Glom Filtration Rate, Estimate >60 mL/min Glucose 78 mg/dL 74-106 If >60 mL/min 28 Potassium 3.7 mmol/L 3.5-5.1 Sodium 143 mmol/L 136-145 Laboratory test finding 06/12/2017 N2N[employer] Import CK 130 U/L 39-308 Hepatitis C Antibody 0.1 s/corat 0-0.9 29 Prostate Specific Antigen 1.66 ng/mL 30 Comprehensive Metabolic Panel 05/26/2017 N[facility]N[employer] Import Alb/Glob 1.2 ratio 31 Albumin 4.1 g/dL 3.4-5 Alkaline Phosphatase 60 U/L 45-117 Anion Gap 7 mEq/L Low 8-16 BUN 19 mg/dL High 7-18 BUN/Creat 15.8 ratio Bilirubin,Total 0.6 mg/dL 0.2-1 Calcium 9.2 mg/dL 8.5-10.1 Carbon Dioxide 28 mmol/L 21-32 Chloride 109 mmol/L High 98-107 Creatinine 1.2 mg/dL 0.6-1.3 Globulin 3.4 g/dL 1.9-4.3 Glom Filtration Rate, Estimate >60 mL/min Glucose 99 mg/dL 74-106 If >60 mL/min 32 Potassium 3.5 mmol/L 3.5-5.1 SGPT/Alt 43 U/L 12-78 Sgot/Ast 14 U/L Low 15-37 33 Sodium 144 mmol/L 136-145 Total Protein 7.5 g/dL 6.4-8.2 CBS W/Automated Diff 05/26/2017 N2N/CCD Import Bas% 0.6 % 0-1.1 Baso # 0.04 K/uL 0-0.1 Eo% 4.5 % 0-6.6 Eos # 0.30 K/uL 0-0.5 Hematocrit 49.7 % High 38-48 Hemoglobin 17.1 gm/dL High 12.8-17 Lymph # 2.22 K/uL 1-4 Lymph % 33.0 % 20-42 Mean Cell Volume 85.7 fl 80-96 Mean Corpuscular HGB 29.5 pg 27-33 Mean Corpuscular HGB Conc 34.4 g/dL 31.7-36 Mean Platelet Volume 8.7 fL 6.6-10.6 [place] # 0.39 K/uL 0-0.8 [place] % 5.8 % 0-10 Neut# 3.78 K/uL 1.8-7 Neut% 56.1 % 33-73 Platelet Count 259 K/uL 150-400 Red Blood Count 5.80 M/uL 4.2-5.8 Red Cell Distri Width %CV 13.1 % 11.6-15.8 Red Cell Distri Width SD 40.6 fl 36-51 White Blood Count 6.7 K/uL 3.4-10.5 Laboratory test 05/09/2017 [facility] Ammonia 147 ?mol/L High 16-53 34, [address] [place] [address] [phone] Lactic Acid 4.8 mmol/L High 0.5-2.0 36 Laboratory test 05/09/2017 [facility] Ammonia 148 ?mol/L High 16-53 37, 38 finding [address] [place] [address] [phone] Lactic Acid 5.2 mmol/L High 0.5-2.0 39 Laboratory test 05/09/2017 [facility] Ammonia 147 ?mol/L High 16-53 40, [address] [place] [id number] [phone] Lactic Acid 5.4 mmol/L High 0.5-2.0 42 Laboratory test 05/09/2017 [facility] Ammonia 150 ?mol/L High 16-53 43, [address] [place] [phone] Lactic Acid 5.7 mmol/L High 0.5-2.0 45 Laboratory test 05/09/2017 [facility] Ammonia 148 ?mol/L High 16-53 46, [address] [place] [address] [phone] Lactic Acid 6.1 mmol/L High 0.5-2.0 48 Laboratory test 05/09/2017 [facility] Ammonia 43 ?mol/L N 16- 53 49, [address] [place] [address] [phone] Lactic Acid 1.3 mmol/L N 0.5-2.0 51 Routine 03/20/2017 N2N/CCD Import Aerobic Pasturella Speci Abnormal 52 , 53 Culture W/ Culture <See Note> Gram Stain Aerobic Culture Mixed Skin Jonathan 54 Gram Stain No Organisms See <See Note> 55 Gram Stain Moderate White B <See Note> 56 Quantity Few Quantity Few Laboratory test 03/05/2017 N2N/CCD Import Urine Culture And See Result 57, 58 finding Sensitivities Below Anca Panel For 01/25/2017 [facility] Myeloperoxidase AB < 0.2 U N [address] [place] [address] [phone] Proteinase 3 AB < 0.2 U N 60 Hla B27 01/25/2017 [facility] Hla B27 Negative N [address] [place] [address] [phone] Hla B27 Interp See Comment N 62 Protein 01/25/2017 [facility] Total 7.0 g/dL N 6.3 - Electrophoresis [address] [place] [address] Protein(Pep) 7.9 [place] [address] [phone] Albumin 3.8 g/dL N 3.4-4.7 Alpha-1 Globulin 0.2 g/dL N 0.1-0.3 Alpha-2 Globulin 0.9 g/dL N 0.6-1.0 Beta Globulin 1.1 g/dL N 0.7-1.2 Gamma Globulin 1.1 g/dL N 0.6-1.6 Albumin/Globulin Ratio 1.17 N Impression See Comment N 63 Laboratory test finding 01/25/2017 [facility] Aldolase 5.5 U/L N <7.[address] [place] [address] [phone] Ferritin 99.5 ng/mL N 24-336 65 Angiotensin Converting Enzyme 45 U/L N 8 - 53 66 Laboratory test 12/01/2016 [facility] C Reactive 4.31 mg/L N < 5.[address] [place] [address] [phone] Erythrocyte Sed Rate 9 mm/Hr N 0-20 Rheumatoid Factor <15 IU/mL N <15 68 Antibody Screen NEGATIVE N Lyme Disease Serology Negative N Negative 69 Vitamin D, 1,25 Dihydroxy 86 pg/mL Abnormal 18-64 70 Vitamin B12 And 12/01/2016 [facility] Vitamin B12 344 pg/mL N 180-914 71 Folate Serum [address] [place] [address] [phone] Folic Acid (Folate) 13.87 ng/mL N >3.99 CBC W/Auto 12/01/2016 [facility] White Blood 8.3 10^3/uL N 3.5 -10.[address] [place] [address] [phone] Red Blood Count 5.37 10^6/uL N 4.0-5.4 Hemoglobin 15.5 g/dL N 14.0-18.0 Hematocrit 46 % N 42-52 Mean Corpuscular Volume 86 fL N 80-94 Mean Corpuscular Hemoglobin 29 pg N 27-31 Mean Corpuscular HGB Conc 34 g/dL N 31-36 Red Cell Distribution Width 13 % N 10.5-15 Platelet Count 267 10^3/uL N 150-450 Mean Platelet Volume 7 um3 Low 7.4-10.4 Abs Neutrophils 5.2 10^3/uL N 1.5-7.7 Abs Lymphocytes 2.1 10^3/uL N 1.0-4.8 Abs Monocytes 0.5 10^3/uL N 0-0.8 Abs Eosinophils 0.4 10^3/uL N 0-0.6 Abs Basophils 0.1 10^3/uL N 0-0.2 Abs Nucleated RBC 0 10^3/uL N Granulocyte % 62.6 % N 38-83 Lymphocyte % 25.6 % N 25-47 Monocyte % 5.9 % N 1-9 Eosinophil % 4.7 % N 0-6 Basophil % 1.2 % N 0-2 Nucleated Red Blood Cells % 0 N Laboratory test 12/01/2016 [facility] Cyclic Citrullinated < 15.6 U N [address] [place] [address] [phone] Anti Nuclear Antibody 0.3 U N 73 Laboratory test finding 06/15/2016 N2N/Virtual Computer Import @[facility] Pat Id: [id number] @[facility] Req #: [id number] 1 C-Reactive Protein,Quant < 2.9 mg/L Glycohemoglobin (A1c) 5.6 % 4.2-6.3 75 Hepatitis C Antibody Nonreactive Is Patient Fasting? Fasting Signal/Cutoff ratio < 0.02 76 eAG 114 mg/dL CBC 06/15/2016 N2N/Virtual Computer Import @[facility] Pat Id: [id number] @[facility] Req #: [id number] 1 Hematocrit 47.9 % 38-48 Hemoglobin 16.3 gm/dL 12.8-17 Mean Cell Volume 86.8 fl 80-96 Mean Corpuscular HGB 29.5 pg 27-33 Mean Corpuscular HGB Conc 34.0 g/dL 31.7-36 Mean Platelet Volume 9.2 fL 6.6-10.6 Platelet Count 281 K/uL 150-400 Red Blood Count 5.52 M/uL 4.2-5.8 Red Cell Distri Width %CV 12.7 % 11.6-15.8 White Blood Count 6.5 K/uL 3.4-10.5 Comprehensive Metabolic Panel 06/15/2016 N2N/Virtual Computer Import @[facility] Pat Id: [id number] @[facility] Req #: [id number] 1 Alb/Glob 1.1 ratio Albumin 3.7 g/dL 3.4-5 Alkaline Phosphatase 54 U/L 45-117 Anion Gap 8 mEq/L 8-16 BUN 19 mg/dL High 7-18 BUN/Creat 21.1 ratio Bilirubin,Total 0.6 mg/dL 0.2-1 Calcium 8.6 mg/dL 8.5-10.1 Carbon Dioxide 25 mmol/L 21-32 Chloride 108 mmol/L High 98-107 Creatinine 0.9 mg/dL 0.6-1.3 Globulin 3.4 g/dL 1.9-4.3 Glom Filtration Rate, Estimate >60 mL/min Glucose 90 mg/dL 74-106 If >60 mL/min 77 Is Patient Fasting? Fasting Potassium 3.9 mmol/L 3.5-5.1 SGPT/Alt 55 U/L 12-78 Sgot/Ast 17 U/L 15-37 Sodium 141 mmol/L 136-145 Total Protein 7.1 g/dL 6.4-8.2 Homocyst(E)Ine, P/S 06/15/2016 N2N/CCD Import @[facility] Pat Id: [id number] @[facility] Req #: [id number] 1 Homocyst(e)ine, P/S 11.9 umol/L 0-15 78 LDL Cholesterol Profile 06/15/2016 N2N/CCD Import @[facility] Pat Id: [id number] @[facility] Req #: [id number] 1 Cholesterol 193 mg/dL 79 HDL Cholesterol 47 mg/dL 80 Is Patient Fasting? Fasting LDL-Cholesterol 120 mg/dL 81 Triglycerides 131 mg/dL 82 Laboratory test 08/24/2015 N2N/CCD Import Antinuclear Negative 83 finding Antibodies, Ifa CK 307 U/L 39-308 Rheumatoid Factor Screen < 10.0 Iu/ml 0-15 Thyroid Stim Hormone 1.13 uIU/mL 0.36-3.74 Thyroxine (T4) 8.7 g/dL 4.7-13.5 Laboratory test finding 08/20/2015 N2N/CCD Import Ferritin 52 ng/mL 26- 388 Serum Iron 126 g/dL 65-175 84 Transferrin 316 mg/dL 200-370 85 Laboratory test 07/02/2015 N2N/CCD Import C-Reactive 1.14 mg/L finding Protein,Cardiac Ferritin 89 ng/mL 26-388 Sedimentation Rate 1 mm/hr 0-20 Vitamin B6 14.0 ug/L 5.3-46.7 86 CBC W/Automated Diff 07/02/2015 N2N/CCD Import Bas% 1.1 % High 0.1-1 Baso # 0.07 K/uL Low 0.1-0.2 Eo% 1.7 % 0-5 Eos # 0.11 K/uL 0-0.5 Hematocrit 48.6 % High 38-48 Hemoglobin 17.1 gm/dL High 12.8-17 Lymph # 1.43 K/uL Low 1.8-7 Lymph % 22.1 % 17-56 Mean Cell Volume 86.9 fl 80-96 Mean Corpuscular HGB 30.6 pg 27-33 Mean Corpuscular HGB Conc 35.2 g/dL 31.7-36 Mean Platelet Volume 9.1 fL 6.6-10.6 [place] # 0.36 K/uL 0-0.8 [place] % 5.6 % 0-10 Neut# 4.49 K/uL 1.8-7 Neut% 69.5 % 33-73 Platelet Count 280 K/uL 150-400 Red Blood Count 5.59 M/uL 4.2-5.8 Red Cell Distri Width %CV 12.6 % 11.6-15.8 Red Cell Distri Width SD 39.8 fl 36-51 White Blood Count 6.5 K/uL 3.4-10.5 Iron-Tibc-%Sat 07/02/2015 N2N/CCD Import Serum Iron 97 g/dL 65-175 Total Iron Binding Capacity 394 g/dL 250-450 Transferrin %Saturation 25 % 12-57 Vitamin B12 And Folate 07/02/2015 N2N/CCD Import Folic Acid 16.0 ng/mL 3.1-17.5 Vitamin B12 453 pg/mL 193-986 Laboratory test 06/21/2015 N2N/CCD Import Homocyst(E)Ine, 12.3 umol/L 0- 15 87 finding Plasma LDL Cholesterol 06/21/2015 N2N/CCD Import Cholesterol 201 mg/dL 88 Profile HDL Cholesterol 37 mg/dL 89 LDL-Cholesterol 132 mg/dL 90 Triglycerides 158 mg/dL 91 CBC 06/21/2015 N2N/CCD Import Hematocrit 47.3 % 38-48 Hemoglobin 16.5 gm/dL 12.8-17 Mean Cell Volume 87.6 fl 80-96 Mean Corpuscular HGB 30.6 pg 27-33 Mean Corpuscular HGB Conc 34.9 g/dL 31.7-36 Mean Platelet Volume 9.1 fL 6.6-10.6 Platelet Count 264 K/uL 150-400 Red Blood Count 5.40 M/uL 4.2-5.8 Red Cell Distri Width %CV 12.8 % 11.6-15.8 White Blood Count 4.9 K/uL 3.4-10.5 Laboratory test 02/18/2015 N2N/[employer] Import Esophageal Biopsy See Note 92 finding Laboratory test 09/07/2014 N2N/CCD Import Urine Screen See Note 93 finding Urinalysis With 09/07/2014 N2N/CCD Import Urine Amorph Small Microscopic Sediment Urine Bacteria Very Few [place] Urine Bilirubin - Dipstick Negative Urine Blood Large High Urine Clarity Clear Urine Color Yellow Urine Epithelial Cells Few [place]/lpf Urine Glucose - Dipstick Negative mg/dL Urine Ketone Negative mg/dL Urine Leuk Esterase Negative Urine Mucus Large [place] Urine Nitrite - Dipstick Negative Urine PH 6.0 1 Low 6.5-7.5 Urine Protein - Dipstick Negative mg/dL Urine RBC 10-20 rbc/hpf High 0-7 Urine Specific [place] >=1.030 1.01-1.03 Urine Urobilinogen - Dipstick 0.2 E.U./dL 0.2-1 Urine WBC 0-2 wbc/hpf 0-7 Laboratory test 07/22/2014 N2N/[employer] Import C-Reactive 1.92 mg/L finding Protein,Cardiac CK 129 U/L 39-308 LDL Cholesterol Profile 07/22/2014 N2N/[employer] Import Cholesterol 221 mg/dL 94 HDL Cholesterol 38 mg/dL 95 LDL-Cholesterol 113 mg/dL 96 Triglycerides 350 mg/dL 97 Laboratory test finding 06/18/2014 N2N/CCD Import CK 112 U/L 39-308 Uric Acid 5.6 mg/dL 3.5-7.2 CBS W/Automated Diff 06/02/2014 N2N/[employer] Computer Import Bas% 0.8 % 0.1-1 Baso # 0.03 K/uL Low 0.1-0.2 Eo% 2.6 % 0-5 Eos # 0.10 K/uL 0-0.5 Hematocrit 46.6 % 38-48 Hemoglobin 15.8 gm/dL 12.8-17 Lymph # 1.03 K/uL Low 1.2-4 Lymph % 26.4 % 17-56 Mean Cell Volume 90.1 fl 80-96 Mean Corpuscular HGB 30.6 pg 27-33 Mean Corpuscular HGB Conc 33.9 g/dL 31.7-36 Mean Platelet Volume 9.0 fL 6.6-10.6 [place] # 0.39 K/uL 0-0.6 [place] % 10.0 % 0-10 Neut# 2.35 K/uL 1.8-7 Neut% 60.2 % 33-73 Platelet Count 209 K/uL 150-400 Red Blood Count 5.17 M/uL 4.2-5.8 Red Cell Distri Width %CV 12.8 % 11.6-15.8 Red Cell Distri Width SD 41.3 fl 36-51 White Blood Count 3.9 K/uL 3.4-10.5 Comprehensive Metabolic Panel 06/02/2014 N2N/CCD Import Alb/Glob 1.1 ratio Albumin 3.6 g/dL 3.5-5 Alkaline Phosphatase 46 U/L Low 50-136 Anion Gap 9 mEq/L 8-16 BUN 13 mg/dL 5-23 BUN/Creat 14.4 ratio Bilirubin,Total 0.3 mg/dL 0.2-1.2 Calcium 8.8 mg/dL 8.5-10.1 Carbon Dioxide 28 mEq/L 18-29 Chloride 106 mmol/L 98-107 Creatinine 0.9 mg/dL 0.5-1.4 Globulin 3.2 g/dL 1.9-4.3 Glom Filtration Rate, Estimate >60 mL/min Glucose 92 mg/dL 76-115 If >60 mL/min 98 Potassium 4.1 mmol/L 3.5-5.1 SGPT/Alt 58 U/L 30-65 Sgot/Ast 32 U/L 16-40 Sodium 139 mmol/L 136-145 Total Protein 6.8 g/dL 6.3-8 Lyme Igg & Igm By Western 06/02/2014 N2N/CCD Import Lyme AB Igg By Western . Blot Blot Lyme Igg WB Interpretation Negative 99 Lyme Igm WB Interpretation Negative 100 P18 AB Absent P23 AB Absent P23 AB Present High P28 AB Absent P30 AB Absent P39 AB Absent P39 AB Absent P41 AB Absent P41 AB Absent P45 AB Absent P58 AB Absent P66 AB Absent P93 AB Absent Urine Screen 06/02/2014 N2N/CCD Import Urine Bilirubin - Dipstick Negative Urine Blood Negative Urine Clarity Clear Urine Color Straw Urine Glucose - Dipstick Negative mg/dL Urine Ketone Negative mg/dL Urine Leuk Esterase Negative Urine Nitrite - Dipstick Negative Urine PH 7.5 1 6.5-7.5 Urine Protein - Dipstick Negative mg/dL Urine Specific [place] 1.010 1 1.01-1.03 Urine Urobilinogen - Dipstick 0.2 E.U./dL 0.2-1 Laboratory test 06/02/2014 N2N/[employer] Computer Import Antinuclear Negative 101 finding Antibodies, Ifa C-Reactive Protein,Quant 15.0 mg/L High 0-4.9 CK 405 U/L High 26-190 CK-MB (Mass) 2.3 ng/mL 0.5-8.2 Free T4 0.86 ng/dL 0.71-1.85 Lyme AB/Total Immunoglobulins < 0.91 Isr 0-0.9 102 Lyme Disease Antibody,QT,Igm 1.73 index High 0-0.79 103 Relative % Index 0.6 % 104 Sedimentation Rate 5 mm/hr 0-20 Thyroid Stim Hormone 2.23 uIU/mL 0.49-4.67 Comprehensive Metabolic Panel 04/03/2014 N2N/Virtual Computer Import Alb/Glob 0.9 ratio Albumin 3.7 g/dL 3.5-5 Alkaline Phosphatase 56 U/L 50-136 Anion Gap 13 mEq/L 8-16 BUN 12 mg/dL 5-23 BUN/Creat 12.0 ratio Bilirubin,Total 0.3 mg/dL 0.2-1.2 Calcium 9.5 mg/dL 8.5-10.1 Carbon Dioxide 26 mEq/L 18-29 Chloride 103 mmol/L 98-107 Creatinine 1.0 mg/dL 0.5-1.4 Globulin 3.9 g/dL 1.9-4.3 Glom Filtration Rate, Estimate >60 mL/min Glucose 138 mg/dL High 76-115 If >60 mL/min 105 Potassium 4.3 mmol/L 3.5-5.1 SGPT/Alt 50 U/L 30-65 Sgot/Ast 19 U/L 16-40 Sodium 138 mmol/L 136-145 Total Protein 7.6 g/dL 6.3-8 CBC W/Automated Diff 04/03/2014 N2N/[employer] Computer Import Baso # 0.04 K/uL Low 0.1- 0.2 Eos # 0.01 K/uL 0-0.5 Hematocrit 47.4 % 38-48 Hemoglobin 16.5 gm/dL 12.8-17 Lymph # 0.50 K/uL Low 1.2-4 Mean Cell Volume 87.3 fl 80-96 Mean Corpuscular HGB 30.4 pg 27-33 Mean Corpuscular HGB Conc 34.8 g/dL 31.7-36 Mean Platelet Volume 8.8 fL 6.6-10.6 [place] # 0.17 K/uL 0-0.6 Neut# 5.99 K/uL 1.8-7 Platelet Count 236 K/uL 150-400 Red Blood Count 5.43 M/uL 4.2-5.8 Red Cell Distri Width %CV 12.5 % 11.6-15.8 Red Cell Distri Width SD 39.7 fl 36-51 White Blood Count 6.7 K/uL 3.4-10.5 Laboratory test finding 04/03/2014 N2N/CCD Import Band% 1 % 0-8 Basophil% 1 % 0-2 Lymph% 8 % Low 17-56 Monocyte% 3 % 0-10 Neutrophils% 87 % High 33-73 Platelet Estimate Normal RBC Morphology Normal Total Cells Counted 100 #CELLS LDL Cholesterol Profile 03/11/2014 N2N/CCD Import Cholesterol 190 mg/dL 120-200 HDL Cholesterol 44 mg/dL 29-83 LDL-Cholesterol 106 mg/dL 62-185 Triglycerides 202 mg/dL 16-231 Comprehensive Metabolic Panel 03/11/2014 N2N/CCD Import Alb/Glob 1.3 ratio Albumin 3.7 g/dL 3.5-5 Alkaline Phosphatase 45 U/L Low 50-136 Anion Gap 13 mEq/L 8-16 BUN 20 mg/dL 5-23 BUN/Creat 22.2 ratio Bilirubin,Total 0.4 mg/dL 0.2-1.2 Calcium 9.1 mg/dL 8.5-10.1 Carbon Dioxide 27 mEq/L 18-29 Chloride 106 mmol/L 98-107 Creatinine 0.9 mg/dL 0.5-1.4 Globulin 2.9 g/dL 1.9-4.3 Glom Filtration Rate, Estimate >60 mL/min Glucose 83 mg/dL 76-115 If >60 mL/min 106 Potassium 3.7 mmol/L 3.5-5.1 SGPT/Alt 47 U/L 30-65 Sgot/Ast 17 U/L 16-40 Sodium 142 mmol/L 136-145 Total Protein 6.6 g/dL 6.3-8 Influenza A & B 12/24/2013 N2N/CCD Import Influenza A Antigen See Note 107 Antigen Influenza B Antigen See Note 108 Laboratory test 12/18/2013 N2N/CCD Import Testosterone,Serum 259 ng/dL Low 348-1197 109 finding Laboratory test 01/08/2012 N2N/CCD Import Antigliadin Abs, IgA 2 units 0 -19 110 finding Antigliadin Abs, IgG 6 units 0-19 111 Endomysial IgA Antibody Negative Immunoglobulin A 184 mg/dL 70-400 t-Transglutaminase IgA <2 U/mL 0-3 112 t-Transglutaminase IgG <2 U/mL 0-5 113 1 ZOO.O1,M79.18 2 Note: Persistent reduction for 3 months or more in an eGFR <60 mL/min/1.73 m2 defines CKD. Patients with eGFR values >/=60 mL/min/1.73 m2 may also have CKD if evidence of persistent proteinuria is present. The original MDRD equation for estimated GFR is not valid for patients less than 18 years of age. Additional information may be found at www.kdoqi.org. 3 Performed at: RN - [facility] [address] [id number] [place]: Mabel Norris MD, Phone: [phone] 4 Reference Guidelines*: Desirable: ........... < 200 mg/dL Borderline High: ..... 200-239 mg/dL High: ................ >=240 mg/dL * The National Cholesterol Education Program (NCEP) 5 Reference Guidelines*: Low HDL: ..... < 40 mg/dL Normal: ..... 40-60 mg/dL Desirable: ... > 60 mg/dL *The National Cholesterol Education Program(NCEP) 6 Reference Guidelines*: Optimal:........... <100 mg/dL Near Optimal....... 100-129 mg/dL Borderline High.... 130-159 mg/dL High............... 160-189 mg/dL Very High.......... >=190 mg/dL * Source: National Cholesterol Education Program (NCEP) 7 Reference Guidelines*: Normal: ............. < 150 mg/dL Borderline High: .... 150-199 mg/dL High: ............... 200-499 mg/dL Very High: .......... > 500 mg/dL * Source: National Cholesterol Education Program (NCEP) 8 FLU? CHILLS, FEVER 9 Instrument flagged sample for slide review. Less than 10% Bands seen, no other immature WBC's seen. RBC morphology essentially normal. Platelet estimate=Normal 10 Note: Persistent reduction for 3 months or more in an eGFR <60 mL/min/1.73 m2 defines CKD. Patients with eGFR values >/=60 mL/min/1.73 m2 may also have CKD if evidence of persistent proteinuria is present. The original MDRD equation for estimated GFR is not valid for patients less than 18 years of age. Additional information may be found at www.kdoqi.org. 11 Values below the stated reference ranges of AST and ALT can be seen in normal populations. Clinical correlation is suggested. 12 URINE, CLEAN CATCH 13 URINE, CLEAN CATCH 14 Please Note: A POSITIVE result for [...] influenza A and B molecular assay. Method: Floodlight Chromatographic immunoassay 15 FLU LIKE SYMPTOMS,ACHING,FEVER 16 Specimen Hemolyzed, interpret with caution CALLED HITESH Spangler AT 1704 08/15/17 by [facility].ELR 17 0.0 - 0.045 ng/mL: Normal 0.046 - 0.5 ng/mL: Suggestive 0.6 - 1.5 ng/mL: Consistent 18 NO GROWTH: FINAL REPORT 19 NO GROWTH: FINAL REPORT 20 NO GROWTH: FINAL REPORT 21 NO GROWTH: FINAL REPORT 22 Note: Persistent reduction for 3 months or more in an eGFR <60 mL/min/1.73 m2 defines CKD. Patients with eGFR values >/=60 mL/min/1.73 m2 may also have CKD if evidence of persistent proteinuria is present. The original MDRD equation for estimated GFR is not valid for patients less than 18 years of age. Additional information may be found at www.kdoqi.org. 23 Z12.5,Z00.01,M79.1,Z11.9 24 Reference Guidelines*: Desirable: ........... < 200 mg/dL Borderline High: ..... 200-239 mg/dL High: ................ >=240 mg/dL * The National Cholesterol Education Program (NCEP) 25 Reference Guidelines*: Low HDL: ..... < 40 mg/dL Normal: ..... 40-60 mg/dL Desirable: ... > 60 mg/dL *The National Cholesterol Education Program(NCEP) 26 Reference Guidelines*: Optimal:........... <100 mg/dL Near Optimal....... 100-129 mg/dL Borderline High.... 130-159 mg/dL High............... 160-189 mg/dL Very High.......... >=190 mg/dL * Source: National Cholesterol Education Program (NCEP) 27 Reference Guidelines*: Normal: ............. < 150 mg/dL Borderline High: .... 150-199 mg/dL High: ............... 200-499 mg/dL Very High: .......... > 500 mg/dL * Source: National Cholesterol Education Program (NCEP) 28 Note: Persistent reduction for 3 months or more in an eGFR <60 mL/min/1.73 m2 defines CKD. Patients with eGFR values >/=60 mL/min/1.73 m2 may also have CKD if evidence of persistent proteinuria is present. The original MDRD equation for estimated GFR is not valid for patients less than 18 years of age. Additional information may be found at www.kdoqi.org. 29 INFCE Result Units: s/co ratio Negative: < 0.8 Indeterminate: 0.8 - 0.9 Positive: > 0.9 The CDC recommends that a positive HCV antibody result be followed up with a HCV Nucleic Acid Amplification test (121795). Performed at: - [facility] [id number] [place]: Mabel Norris MD, Phone: [phone] 30 THIS ASSAY IS NOT INTENDED A CANCER SCREENING TEST The concentration of PSA in a given specimen, determined with assays from different manufacturers, can vary due to differences in assay methods and reagent specificity. Values obtained from different assay methods cannot be used interchangeably. Method: [employer] [place] Chemiluminescent immunoassay. 31 CENTER RIB PAIN OFF AND ON X 1 MONTH 32 Note: Persistent reduction for 3 months or more in an eGFR <60 mL/min/1.73 m2 defines CKD. Patients with eGFR values >/=60 mL/min/1.73 m2 may also have CKD if evidence of persistent proteinuria is present. The original MDRD equation for estimated GFR is not valid for patients less than 18 years of age. Additional information may be found at www.kdoqi.org. 33 Values below the stated reference ranges of AST and ALT can be seen in normal populations. Clinical correlation is suggested. 34 Comment: 7 min 35 Comment: 7 min 36 [facility] Severe Sepsis and Septic Shock Management Bundle Measure requires all lactic acids initially measuring >2.0 mmol/L be repeated. 37 Comment: 5 min 38 Comment: 5 min 39 [facility] Severe Sepsis and Septic Shock Management Bundle Measure requires all lactic acids initially measuring >2.0 mmol/L be repeated. [facility] Severe Sepsis and Septic Shock Management Bundle Measure requires all lactic acids initially measuring >2.0 mmol/L be repeated. 40 Comment: 3 min 41 Comment: 3 min 42 [facility] Severe Sepsis and Septic Shock Management Bundle Measure requires all lactic acids initially measuring >2.0 mmol/L be repeated. [facility] Severe Sepsis and Septic Shock Management Bundle Measure requires all lactic acids initially measuring >2.0 mmol/L be repeated. 43 Comment: 2 min 44 Comment: 2 min 45 [facility] Severe Sepsis and Septic Shock Management Bundle Measure requires all lactic acids initially measuring >2.0 mmol/L be repeated. [facility] Severe Sepsis and Septic Shock Management Bundle Measure requires all lactic acids initially measuring >2.0 mmol/L be repeated. 46 Comment: 1 min 47 Comment: 1 min 48 [facility] Severe Sepsis and Septic Shock Management Bundle Measure requires all lactic acids initially measuring >2.0 mmol/L be repeated. [facility] Severe Sepsis and Septic Shock Management Bundle Measure requires all lactic acids initially measuring >2.0 mmol/L be repeated. 49 Comment: baseline 50 Comment: baseline 51 [facility] Severe Sepsis and Septic Shock Management Bundle Measure requires all lactic acids initially measuring >2.0 mmol/L be repeated. 52 SURGICAL SITE ON NECK, OOZING 53 PASTURELLA SPECIES 54 MIXED SKIN JONATHAN 55 NO ORGANISMS SEEN 56 MODERATE WHITE BLOOD CELLS 57 [id number] 58 SEE RESULT BELOW Name: FLAKO PELAYO : [address]: Toby Medina MD Acct: [id number] Unit: [id number] AGE: 51 Location: [facility] Re03/05/17 SEX: M Status: DEP ER SPEC: [id number] MACO: 03/05/17-[address]: Toby Medina MD REQ: [id number] RECD: 03/06/17-1013 STATUS: COMP [facility] DR: Evan Werner MD _ SOURCE: URINE SPDESC: ORDERED: Urine Culture COMMENTS: [id number] Procedure Result Reported Site Urine Culture Final 03/07/17- 0854 ML No Growth (<1,000 CFU/mL) * ML - [facility] ([facility]) . END OF REPORT * ML=Testing performed at Main Lab DEPARTMENT OF PATHOLOGY, [address] [place] [address] Flako Benitez M.D. Director [facility] # [id number] 59 REFERENCE VALUE <0.4 (Negative) 60 REFERENCE VALUE <0.4 (Negative) Test Performed by: [address] [id number] 61 REFERENCE VALUE Not Applicable 62 RESULT: HLA-B27 antigen was not detected. ADDITIONAL INFORMATION Method: Flow Cytometry Performing Laboratory CLIA# [id number] Test Performed by: [place] [address] 63 RESULT: No apparent monoclonal protein on serum electrophoresis. Test Performed by: [address] [address] 64 Test Performed by: [place] [address] 65 Please check labs today 66 Test Performed by: [address] [id number] 67 Acute inflammation: >10.00 68 Test Performed by: [place] [address] 69 Serologic response to B. burgdorferi infection is not detected, but cannot rule out early infection during which low or undetectable antibody levels to B. burgdorferi may be present. If clinically indicated, a new serum specimen should be submitted in 7-14 days. Test Performed by: [address] [address] 70 ADDITIONAL INFORMATION This test was developed and its performance characteristics determined by [facility] in a manner consistent with CLIA requirements. This test has not been cleared or approved by the U.S. Food and Drug Administration. Test Performed by: [address] [address] 71 Normal Range 180 to 914 Indeterminate Range 145 to 180 Deficient Range <145 72 REFERENCE VALUE <20.0 (Negative) Test Performed by: [facility] [address] [place] [address] 73 REFERENCE VALUE <=1.0 (Negative) Test Performed by: [facility] - [address] [address] 74 Z00.00,Z11.9 75 Elevated levels of HbA1c suggest the need for more aggressive treatment of glycemia. The [place] [employer] recommends that a primary goal of therapy should be a HbA1c of <7% and that physicians should re-evaluate the treatment regimen in patients with HbA1c values consistently >8%. 76 Antibodies to HCV not detected; does not exclude early acute HCV infection. 77 Note: Persistent reduction for 3 months or more in an eGFR <60 mL/min/1.73 m2 defines CKD. Patients with eGFR values >/=60 mL/min/1.73 m2 may also have CKD if evidence of persistent proteinuria is present. The original MDRD equation for estimated GFR is not valid for patients less than 18 years of age. Additional information may be found at www.kdoqi.org. 78 Performed at: RN - [facility] [address] [id number] [place]: Mabel Norris MD, Phone: [phone] 79 Reference Guidelines*: Desirable: ........... < 200 mg/dL Borderline High: ..... 200-239 mg/dL High: ................ >=240 mg/dL * The National Cholesterol Education Program (NCEP) 80 Reference Guidelines*: Low HDL: ..... < 40 mg/dL Normal: ..... 40-60 mg/dL Desirable: ... > 60 mg/dL *The National Cholesterol Education Program(NCEP) 81 Reference Guidelines*: Optimal:........... <100 mg/dL Near Optimal....... 100-129 mg/dL Borderline High.... 130-159 mg/dL High............... 160-189 mg/dL Very High.......... >=190 mg/dL * Source: National Cholesterol Education Program (NCEP) 82 Reference Guidelines*: Normal: ............. < 150 mg/dL Borderline High: .... 150-199 mg/dL High: ............... 200-499 mg/dL Very High: .......... > 500 mg/dL * Source: National Cholesterol Education Program (NCEP) 83 Negative <1:80 Borderline 1:80 Positive >1:80 Performed at: [address] [id number] [place]: Mabel Norris MD, Phone: [phone] QUERY: Is the Patient Fasting? N 85 Performed at: [address] [id number] [place]: Mabel Norris MD, Phone: [phone] 86 Performed at: [address] [id number] [place]: James Dash MD, Phone: [phone] 87 Performed at: [address] [id number] [place]: Mabel Norris MD, Phone: [phone] 88 Reference Guidelines*: Desirable: ........... < 200 mg/dL Borderline High: ..... 200-239 mg/dL High: ................ >=240 mg/dL * The National Cholesterol Education Program (NCEP) 89 Reference Guidelines*: Low HDL: ..... < 40 mg/dL Normal: ..... 40-60 mg/dL Desirable: ... > 60 mg/dL *The National Cholesterol Education Program(NCEP) 90 Reference Guidelines*: Optimal:........... <100 mg/dL Near Optimal....... 100-129 mg/dL Borderline High.... 130-159 mg/dL High............... 160-189 mg/dL Very High.......... >=190 mg/dL * Source: National Cholesterol Education Program (NCEP) 91 Reference Guidelines*: Normal: ............. < 150 mg/dL Borderline High: .... 150-199 mg/dL High: ............... 200-499 mg/dL Very High: .......... > 500 mg/dL * Source: National Cholesterol Education Program (NCEP) 92 OPERATION/PROCEDURE Colonoscopy, EGD DIAGNOSIS: PART 1: "RANDOM [...] Signed Electronically signed NENO CONDE MD [id number] 09/07/14 LAB.DWM Deleted by [employer] [facility] 94 Reference Guidelines*: Desirable: ........... < 200 mg/dL Borderline High: ..... 200-239 mg/dL High: ................ >=240 mg/dL * The National Cholesterol Education Program (NCEP) 95 Reference Guidelines*: Low HDL: ..... < 40 mg/dL Normal: ..... 40-60 mg/dL Desirable: ... > 60 mg/dL *The National Cholesterol Education Program(NCEP) 96 Reference Guidelines*: Optimal:........... <100 mg/dL Near Optimal....... 100-129 mg/dL Borderline High.... 130-159 mg/dL High............... 160-189 mg/dL Very High.......... >=190 mg/dL * Source: National Cholesterol Education Program (NCEP) 97 Reference Guidelines*: Normal: ............. < 150 mg/dL Borderline High: .... 150-199 mg/dL High: ............... 200-499 mg/dL Very High: .......... > 500 mg/dL * Source: National Cholesterol Education Program (NCEP) 98 Note: Persistent reduction for 3 months or more in an eGFR <60 mL/min/1.73 m2 defines CKD. Patients with eGFR values >/=60 mL/min/1.73 m2 may also have CKD if evidence of persistent proteinuria is present. The original MDRD equation for estimated GFR is not valid for patients less than 18 years of age. Additional information may be found at www.kdoqi.org. 99 Positive: 5 of the following Borrelia-specific bands: 18,23,28,30,39,41,45,58, 66, and 93. Negative: No bands or banding patterns which do not meet positive criteria. 100 Note: An equivocal or positive EIA result [...] are those recommended by CDC/ASTPHLD. p23=Osp C, l86=heohfyuhp Note: Sera from individuals with the following may cross react in the Lyme Western Blot assays: other spirochetal diseases (periodontal disease, leptospirosis, relapsing fever, yaws, and pinta); connective autoimmune (Rheumatoid Arthritis and Systemic Lupus Erythematosus and also individuals with Antinuclear Antibody); other infections ([place] Spotted Fever; Farooq-Alejandro Virus, and Cytomegalovirus). Performed at: RN - [facility] [address] [id number] [place]: Mabel Norris MD, Phone: [phone] 101 Negative <1:80 Borderline 1:80 Positive >1:80 102 Negative <0.91 Equivocal 0.91 - 1.09 Positive >1.09 Please note reference interval change 103 Negative <0.80 Equivocal 0.80 - 1.19 Positive >1.19 IgM levels may peak at 3-6 weeks post infection, then gradually decline. 104 < 5%=non AMI 5 - 10%=borderline for AMI > 10%=positive for AMI FOR DIAGNOSTIC PURPOSES, THE CK-MB RESULT (MASS AND RELATIVE PERCENT INDEX) SHOULD BE USED IN CONJUNCTION WITH OTHER PERTINENT CLINICAL DATA. 105 Note: Persistent reduction for 3 months or more in an eGFR <60 mL/min/1.73 m2 defines CKD. Patients with eGFR values >/=60 mL/min/1.73 m2 may also have CKD if evidence of persistent proteinuria is present. The original MDRD equation for estimated GFR is not valid for patients less than 18 years of age. Additional information may be found at www.kdoqi.org. 106 Note: Persistent reduction for 3 months or more in an eGFR <60 mL/min/1.73 m2 defines CKD. Patients with eGFR values >/=60 mL/min/1.73 m2 may also have CKD if evidence of persistent proteinuria is present. The original MDRD equation for estimated GFR is not valid for patients less than 18 years of age. Additional information may be found at www.kdoqi.org. 107 NEGATIVE FOR INFLUENZA A ANTIGEN Influenza A testing has been performed by non-culture methods. Viral (cell) culture testing may be considered to confirm the results or if testing is desired to detect other viruses that can cause similiar clinical symptoms. 108 NEGATIVE FOR INFLUENZA B ANTIGEN Influenza B testing has been performed by non-culture methods. Viral (cell) culture testing may be considered to confirm the results or if testing is desired to detect other viruses that can cause similiar symptoms. 109 Performed at: [facility] [id number] [place]: Mabel Norris MD, Phone: [phone] 110 Negative 0 - 19 Weak Positive 20 - 30 Moderate to Strong Positive >30 111 Negative 0 - 19 Weak Positive 20 - 30 Moderate to Strong Positive >30 112 Negative 0 - 3 Weak Positive 4 - 10 Positive >10 Tissue Transglutaminase (tTG) has been identified as the endomysial antigen. Studies have demonstr- ated that endomysial IgA antibodies have over 99% specificity for gluten sensitive enteropathy. 113 Negative 0 - 5 Weak Positive 6 - 9 Positive >9 Performed at: [facility] [address] [id number] [place]: Joe Kline MD, Phone: [phone] Procedures Date Code Description Status 10/09/2017 08776 Nasal Endoscopy, Diagnostic Completed 05/11/2017 70422 Rad Shoulder Comp, Min. 2 Views Completed 05/11/2017 04494 Inject/Drain Joint/Bursa Intermediate W/O US Completed 12/26/2016 23822 Nasal Endoscopy, Diagnostic Completed 05/26/2015 31704876 Colonoscopy Completed 05/26/2015 89940 Colonoscopy Flexible Diagnostic Completed 05/26/2015 65929 Pure Tone Hearing Test, Air Completed 04/29/2014 29765 Pure Tone Hearing Test, Air Completed 01/01/2013 36737 Rad Exam; Ankle Comp Completed 01/01/2013 02538 Rad Exam; Knee Comp Completed 09/07/2011 34864 Arthroscopy Shoulder Debridement Limited Completed 08/22/2011 29991 Nasal Endoscopy, Diagnostic Completed 08/15/2011 05512 Pure Tone-Air Condition Only Completed 08/10/2010 03130 Visual funct screen test, automated Completed 08/10/2010 32946 Pure Tone-Air Condition Only Completed 10/26/2009 29213 Nasal Endoscopy, Diagnostic Completed 03/19/2007 60180 Excision, Benign Lesion Scalp Neck Hands Feet Genitalia Completed 0.5 Or Le Encounters Type Date Location Provider Dx Diagnosis Office Visit 07/19/2018 Rheumatology Evan Mosqueda, M94.0 Chondrocostal 10:00a Services Of [facility] Guy junction syndrome [Tietze] M60.9 Myositis, unspecified Office Visit 03/14/2018 10:30a [facility] 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, 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 lower limb, including hip B07.0 Plantar wart Z08 Encntr for follow-up exam after trtmt for malignant neoplasm Z85.828 Personal history of other malignant neoplasm of skin Office Visit 01/21/2018 2:30p Spine Navigator Rosi Reyes M51.37 Other intervertebral Of Renewals Manager PA-C disc degeneration, lumbosacral region M51.36 Other intervertebral disc degeneration, lumbar region Office Visit 01/07/2018 2:00p Spine Navigator Rosi Reyes M51.36 Other intervertebral Of Renewals Manager PA-C disc degeneration, lumbar region M54.16 Radiculopathy, lumbar region M25.551 Pain in right hip Office Visit 12/17/2017 10:40a Rheumatology Evan M60.9 Myositis, Services Of [facility] Mosqueda M.D. unspecified M70.61 Trochanteric bursitis, right hip Office 12/06/2017 Orthopedic Luis Mckeon R53.1 Weakness Visit 8:45a Services Of [facility] Little MD AT [place] Office 11/13/2017 ENT Services Of Juan Manuel Olivares.Karen Polypoid sinus Visit 3:45p C.M.A. AT [place] Malcolm degeneration [place] Office 06/04/2017 Rheumatology Evan M60.9 Myositis, unspecified Visit 3:20p Services Of [facility] Mosqueda M.D. Office 05/11/2017 Orthopedic Luis Mckeon S43.51xA Sprain of right Visit 10:15a Services Of [facility] Little MD acromioclavicular AT [place] joint, initial encounter M25.511 Pain in right shoulder Office Visit 03/29/2017 9:40a Rheumatology Sukumar Sanchez.652 Pain in left Services Of Clara Guy thigh M79.651 Pain in right thigh R93.6 Abnormal findings on diagnostic imaging of limbs M17.0 Bilateral primary osteoarthritis of knee Office Visit 02/13/2017 ENT Services Of [facility] Manuel Olivares.Karen Polypoid sinus 3:30p C.M.A. 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 M17.0 Bilateral primary osteoarthritis of knee Office Visit 12/28/2016 2:30p Sports Medicine Jeanna Seals MD M79.652 Pain in left Of Renewals Manager AT thigh [place] M79.651 Pain in right thigh R93.6 Abnormal findings on diagnostic imaging of limbs Office Visit 12/07/2016 3:30p Sports Medicine Jeanna Seals MD M79.652 Pain in left Of Renewals Manager AT thigh [place] M79.651 Pain in right thigh R93.6 Abnormal findings on diagnostic imaging of limbs Office Visit 11/30/2016 3:30p Sports Medicine Jeanna Seals MD M25.561 Pain in right Of Renewals Manager AT knee [place] M79.652 Pain in left thigh M79.651 Pain in right thigh Office Visit 09/21/2016 4:00p Sports Medicine Jeanna Seals MD M25.561 Pain in right Of Renewals Manager AT knee Danial M79.652 Pain in left thigh M79.651 Pain in right thigh M71.21 Synovial cyst of popliteal space [Diaz], right knee M17.0 Bilateral primary osteoarthritis of knee S83.241A Oth tear of medial meniscus, current injury, r knee, init Office Visit 08/31/2016 2:00p Sports Medicine Jeanna Seals MD M79.652 Pain in left Of Renewals Manager AT thigh Danial M25.561 Pain in right knee M79.651 Pain in right thigh Office Visit 06/29/2016 10:30a Sports Medicine Jeanna Seals MD M25.561 Pain in right Of Renewals Manager AT knee [place] M71.21 Synovial cyst of popliteal space [Diaz], right knee M17.11 Unilateral primary osteoarthritis, right knee Office Visit 06/08/2016 3:00p Sports Medicine Jeanna Seals MD M25.561 Pain in right Of Renewals Manager AT knee [place] M17.11 Unilateral primary osteoarthritis, right knee Office Visit 04/27/2016 2:45p Sports Medicine Jeanna Seals MD M25.561 Pain in right Of Renewals Manager AT knee [place] M71.21 Synovial cyst of popliteal space [Diaz], right knee Office Visit 03/30/2016 3:00p Sports Medicine Jeanna Seals MD M25.561 Pain in right Of Renewals Manager AT knee [place] M17.11 Unilateral primary osteoarthritis, right knee E66.9 Obesity, unspecified M25.761 Osteophyte, right knee Office Visit 05/27/2015 [place]/Lee Ray.9 Muscle 9:15a Neurologic Serv Of [facility] Brooks Espinoza Disorders Unspec Office Visit 01/25/2015 Neurohospitalist Toby Sandy 728.9 Muscle 9:00a Clinic [facility] Espinoza Disorders Unspec Office Visit 11/24/2014 Orthopedic Services Of Joe 719.47 Pain Joint 11:30a Renewals Manager AT Danial Collado M.D. Ankle & Foot 726.71 Bursitis Or Tendinitis Achilles Office Visit 11/03/2014 11:00a Orthopedic Services Joe Collado 719.47 Pain Joint Of Renewals Manager AT [place] M.D. Ankle & Foot 355.9 Mononeuritis Unspec Site 782.0 Skin Sensation Disturbance 729.5 Pain In Limb Office Visit 06/30/2014 3:30p ENT Services Of Lashay Candelario7.0 Rhinitis C.M.A. AT M.D. Allergic Due To [place] Pollen 471.8 Polyp Sinus Other Office Visit 04/21/2014 11:00a Orthopedic Joe Collado 733.29 Cyst Bone Other Services Of Clara Guy AT [place] Office Visit 06/24/2013 4:00p ENT Services Of Nena Candelario.0 Rhinitis C.M.A. AT M.D. 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 Office Visit 01/29/2013 Orthopedic Arline 727.06 Tenosynovitis Foot 3:45p Services Of Clara Smith M.D. & Ankle AT [place] Office Visit 01/01/2013 Orthopedic Arline 719.46 Pain Joint Lower 9:00a Services Of Clara Smith M.D. Leg AT [place] 727.06 Tenosynovitis Foot & Ankle 726.64 Tendinitis Patellar Office Visit 05/28/2012 2:00p ENT Services Of Lashay Candelario7.0 Rhinitis C.M.A. AT M.D. Allergic Due To Danial Pollen 471.8 Polyp Sinus Other Office Visit 08/22/2011 2:15p ENT Services Of Juan Manuel Malcolm 473.2 Sinusitis C.M.A. AT M.D. 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 Disorders Shoulder Region Unspec Office Visit 07/28/2011 10:30a [facility] Rocael Fajardo.10 Bursae & Tendon of [facility].. Disorders Shoulder Region Unspec Office Visit 05/23/2011 3:30p ENT Services Of Juan Manuel Malcolm, 471.8 Pol[facility] 477.0 Rhinitis Allergic Due To Pollen Office Visit 04/19/2010 2:00p ENT Services Of Juan Manuel Malcolm, 471.8 Polyp Sinus C.M.A. AT .D Other [place] 473.2 Sinusitis Chronic Ethmoidal 327.23 Obstructive Sleep Apnea Adult & Pediatric Office Visit 03/08/2010 1:00p ENT Services Of Juan Manuel Malcolm, 471.8 Polyp Sinus C.M.A. AT .D. Other [place] Office Visit 01/18/2010 3:30p ENT Services Of Juan Manuel Malcolm, 473.2 Sinusitis C.M.A. AT .D Chronic [place] Ethmoidal 471.8 Polyp Sinus Other 477.0 Rhinitis Allergic Due To Pollen Office Visit 11/16/2009 2:30p ENT Services Of Juan Manuel Yun, 473.2 Sinusitis C.M.A. AT .D. Chronic Danial Ethmoidal 471.8 Polyp Sinus Other Office Visit 10/26/2009 3:00p ENT Services Of Juan Manuel Yun, 473.2 Sinusitis C.M.A. AT .D. Chronic [place] Ethmoidal 471.8 Polyp Sinus Other 380.4 Impacted Cerumen Plan of Treatment Future Appointment(s):05/20/2019 10:20 am - vEan Mosqueda M.D. at Rheumatology Services Of [facility]07/02/2019 10:30 am - Evan Werner MD at [facility] Primary Care01/16/2019 - Evan Werner MDK29.70 Gastritis, unspecified, without bleedingNew Medication:Omeprazole 40 mg - 1 by mouth every dayNew Labs:Liver Function Panel, Ordered: 01/16/19Amylase, Ordered: 01/16/19Lipase, Ordered: 11/05Follow up:physicalAllNew Therapy:Physical Therapy
--- OUTSIDE RECORDS SUMMARY | 2019-01-28 07:16 | XMS REPORT | Continuity of Care Document ---
:1965 External Reference #:[id number] Author Name Lisa Silva Care Team Providers Name Role Phone Evan Werner MD Primary Care Physician Unavailable Payers Date Identification Numbers Payment Provider Subscriber Effective: 2012 Policy Number: [id number] [employer] Elzbieta Pelayo PayID: [id number] [address] [address] [place] [address] Effective: 2012 Policy Number: [id number] Blue Shield Ppo Elzbieta Florespatsy PayID: [id number] [address] [address] [place] [address] Advance Directives Description No Information Available Problems Active Problems Provider Date Weakness of limb Toby Espinoza M.D. 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 [facility] support Hydrochlorothiazide 1 by mouth every 90tabs I10 [...] Sub daily sublingually Methylprednisolone take as directed 1pack Juan Manuel 12/26/2016 - 4mg TBPK Brooks Malcolm 01/24/2017 Doxazosin Mesylate 1 by mouth every 90tabs I10 Evan 07/18/2016 - 2mg day Debbi 05/28/2017 Tablets Mirapex 1 tablet 2-3 hours 30tabs G25.8 Evan 09/07/2015 - 0.125mg Tablets before sleep 1 Debbi, 02/22/2016 Transderm-Scop Apply 1 patch 5units Juan Manuel 05/04/2015 - 1mg/3Days every 72 hours as Brooks Malcolm 05/26/2015 Patches 72HR needed fo seasickness Omeprazole 1 by mouth b.i.d 30caps 530.8 Evan 03/04/2014 - 40mg Capsules DR Karen Wenrer, 06/14/2015 Lortab 2 p.o.q 6 h prn 50tabs 726.1 Kulwant Okeefe, 08/30/2011 - 5-500mg Tablets pain 0 CrysDReggie 05/28/2012 Clarithromycin 1 PO bid x 14 Days 28tabs Juan Manuel 08/22/2011 - 500mg Tablets Brooks Malcolm 08/30/2011 Cefdinir 1 PO bid for 14 28caps Juan Manuel 08/22/2011 - 300mg Capsules days Brooks Malcolm 05/28/2012 Dicyclomine HCL Evan 08/15/2011 - 20mg Tablets Debbi 08/29/2011 Prilosec Evan 08/15/2011 - 20mg Capsules DR Werner, 04/01/2014 MD Ultram sig 1 po q8h prn 40tabs 726.1 Kulwant Okeefe, 07/28/2011 - 50mg Tablets 0 M.DReggie 08/22/2011 Veramyst spray 2 sprays in 1units [facility] 05/23/2011 - 27.5mcg/[place] each nostril daily Brooks Malcolm 05/28/2012 Suspension Bactroban Nasal mix 1/3 of tube 30gm [facility] 05/19/2010 - 0.9% Ointment with 1 liter of Brooks Malcolm 05/28/2012 sterile saline and irrigate nose twice a day Sterile Saline to due with 3Liters [facility] 05/19/2010 - bactiban uses qid Brooks Malcolm 05/28/2012 Singulair 1 tab daily 1Month 471.8 [facility] 11/16/2009 - 10mg Tablets Brooks Malcolm 08/22/2011 Veramyst [place] 2 Sprays In 1units 473.2 [facility] 11/16/2009 - 27.5mcg/[place] Each Nostril Daily Brooks Malcolm 05/28/2012 Suspension Sodium Chloride 0.9% use as directed 3000units [facility] 10/26/2009 - 0.9% For Sinus Brooks Malcolm 01/15/2015 Solution Irrigation Omnicef 1 by mouth twice a 28caps 471.8 [facility] 10/26/2009 - 300mg Capsules day for 14 days Brooks Malcolm 05/23/2011 Nasonex 2 sprays to each 1month 471.8 [facility] 10/26/2009 - 50mcg/Act Suspension nostril daily Brooks Malcolm 11/16/2009 Medrol (Bryan) Take as directed 1pack 471.8 [facility] 10/26/2009 - 4mg Tablets Brooks Malcolm 11/16/2009 Advair HFA 2 puff / 2 day Omar, - 230-21mcg/Act Olivier, 06/26/2018 Aerosol Mupirocin Unknown - 2% Ointment 02/28/2018 Naproxen Unknown - 500mg Tablets 02/28/2018 Azelastine HCL (Nasal) Unknown - 0.1% 02/28/2018 Solution Doxycycline Hyclate take 2 days before Unknown - 100mg leaving and 28 07/07/2015 Capsules days upon returning Dymista 1 spray ea nares 1 Unknown - 137-50mcg/Act time daily 06/14/2015 Suspension Fluticasone Propionate Unknown - 02/28/2018 50mcg/Act Suspension Androgel Pump Unknown - 20.25mg/Act 09/07/2015 (1.62%) Gel Pravastatin Sodium take 1 tablet by 90tabs Evan - 20mg mouth once daily Werner, 04/01/2014 Tablets MD Sodium Chloride Unknown - 0.9% Solution 01/16/2019 Clarithromycin 1 by mouth every 14tabs Unknown - 500mg Tablets day 10/22/2017 Budesonide as directed Unknown - 1mg/2ML Suspension 01/16/2019 Omnaris 2 puffs both sides Unknown - 50mcg/Act Suspension once a day 02/06/2017 Clarithromycin 1 tab by mouth Unknown - Tablets twice a day x 14 12/18/2016 days. Given another prescription for another 14 days after original and has 7 days left. Omeprazole 1 by mouth every Unknown - 20mg Capsules DR day 10/01/2017 Androgel apply1.25 gm to Unknown - 20.25mg/1.25GM area sparingly 11/29/2016 (1.62%) Gel every day Pantoprazole Sodium 1 by mouth twice a 90tabs Unknown - 40mg day 09/20/[address] Ellison 2 squirts in each 30ml Unknown - 137mcg/[place] Solution nostril twice a 11/02/2014 day Flonase [...] CPT Code Status Date Vaccine Lot # [id number] Given 02/25/2018 Tdap - Tetanus/Diptheria/Acellular Pertussis 02938 Given 06/29/2014 Influenza Virus 3Yrs & Over 34214 Given 07/12/2013 Influenza Virus 3Yrs & Over 39166 Given 07/22/2010 Pneumonia Vaccine 34833 Given 07/22/2010 Tdap - Tetanus/Diptheria/Acellular Pertussis Vital Signs Date Vital Result Comment 01/16/2019 10:11am Height 68 inches 5'8" Weight [...] 31.7-36 Mean Platelet Volume 8.5 fL 6.6-10.6 Labette # 1.65 K/uL High 0-0.8 Labette % 10.7 % High 0-10 Neut# 11.82 [...] Protein 6.9 g/dL 6.4-8.2 Urinalysis With 08/26/2017 [facility] Import Source: Urine, Clean Cat 12 Microscopic [...] RBC None Seen rbc/hpf 0-2 Urine Specific [place] <=1.005 Low 1.01-1.03 Urine Urobilinogen - Dipstick 0.2 E.U./dL 0.2-1 Urine WBC 0-2 wbc/hpf 0-7 Laboratory test finding 08/15/2017 [facility] Import Source: Urine, Clean Cat 13 <See Note> Urine Bilirubin - Dipstick Negative Urine Blood Negative Urine Clarity Clear Urine Color Yellow Urine Glucose - Dipstick Negative mg/dL Urine Ketone Negative mg/dL Urine Leuk Esterase Negative Urine Nitrite - Dipstick Negative Urine PH 8.5 1 High 6.5-7.5 Urine Protein - Dipstick Trace mg/dL Urine Specific [place] 1.015 1 1.01-1.03 Urine Urobilinogen - Dipstick 0.2 E.U./dL 0.2-1 Influenza A/B Antigen 08/15/2017 [facility] Import Influenza A Antigen Negative Influenza B Antigen Positive Abnormal 14 Laboratory test finding 08/15/2017 [facility] Import CK 132 U/L 39-308 15 Lab Reflex >2.0 for Sepsis? Y Lactic Acid 2.0 mmol/L High 0.4-1.9 16 Troponin-I < 0.015 ng/mL 17 Blood Culture 08/15/2017 [facility] Import Blood Culture No Growth: Final 18 Aerobic <See Note> Blood Culture Aerobic No Growth: Final <See Note> 19 Blood Culture Anaerobic No Growth: Final <See Note> 20 Blood Culture Anaerobic No Growth: Final <See Note> 21 CBS W/Automated Diff 08/15/2017 N2N/CCD Import Bas% [...] 31.7-36 Mean Platelet Volume 9.2 fL 6.6-10.6 Labette # 0.69 K/uL 0-0.8 Labette % 9.9 % 0-10 Neut# 5.57 K/uL 1.8-7 Neut% 79.6 % High 33-73 Platelet Count 200 K/uL 150-400 Red Blood Count 5.45 M/uL 4.2-5.8 Red Cell Distri Width %CV 13.0 % 11.6-15.8 Red Cell Distri Width SD 40.4 fl 36-51 White Blood Count 7.0 K/uL 3.4-10.5 Comprehensive Metabolic Panel 08/15/2017 N2N/CCD Import Alb/Glob [...] mmol/L 136-145 Total Protein 7.2 g/dL 6.4-8.2 Laboratory test finding 06/12/2017 N2N/CCD Import CK 130 U/L 39-308 23 Hepatitis C Antibody 0.1 s/corat 0-0.9 24 Prostate Specific Antigen 1.66 ng/mL 25 Basic Metabolic Panel 06/12/2017 N2N/S[facility]I Import Anion Gap 4 mEq/L Low 8- 16 BUN 16 mg/dL 7-18 BUN/Creat 17.7 ratio Calcium 9.1 mg/dL 8.5-10.1 Carbon Dioxide 31 mmol/L 21-32 Chloride 108 mmol/L High 98-107 Creatinine 0.9 mg/dL 0.6-1.3 Glom Filtration Rate, Estimate >60 mL/min Glucose 78 mg/dL 74-106 If >60 mL/min 26 Potassium 3.7 mmol/L 3.5-5.1 Sodium 143 mmol/L 136-145 LDL Cholesterol Profile 06/12/2017 N2N/SIVI Import Cholesterol 196 mg/dL 27 HDL Cholesterol 48 mg/dL 28 LDL-Cholesterol 109 mg/dL 29 Triglycerides 196 mg/dL High 30 CBC 06/12/2017 [facility] Import Hematocrit 46.3 % 38-48 Hemoglobin 16.0 gm/dL 12.8-17 Mean Cell Volume 86.4 fl 80-96 Mean Corpuscular HGB 29.9 pg 27-33 Mean Corpuscular HGB Conc 34.6 g/dL 31.7-36 Mean Platelet Volume 9.6 fL 6.6-10.6 Platelet Count 269 K/uL 150-400 Red Blood Count 5.36 M/uL 4.2-5.8 Red Cell Distri Width %CV 13.0 % 11.6-15.8 White Blood Count 4.9 K/uL 3.4-10.5 Comprehensive Metabolic Panel 05/26/2017 N2N/SIVI Import Alb/Glob 1.2 ratio 31 Albumin 4.1 [...] 31.7-36 Mean Platelet Volume 8.7 fL 6.6-10.6 Labette # 0.39 K/uL 0-0.8 Labette % 5.8 % 0-10 Neut# 3.78 K/uL 1.8-7 Neut% 56.1 % 33-73 Platelet Count 259 K/uL 150-400 Red Blood Count 5.80 M/uL 4.2-5.8 Red Cell Distri Width %CV 13.1 % 11.6-15.8 Red Cell Distri Width SD 40.6 fl 36-51 White Blood Count 6.7 K/uL 3.4-10.5 Laboratory test 05/09/2017 [facility] Ammonia 147 ?mol/L High 16-53 34, [address] [place] [address] [phone] Lactic Acid 5.4 mmol/L High 0.5-2.0 36 Laboratory test 05/09/2017 [facility] Ammonia 150 ?mol/L High 16-53 37, [address] [place] [address] [phone] Lactic Acid 5.7 mmol/L High 0.5-2.0 39 Laboratory test 05/09/2017 [facility] Ammonia 148 ?mol/L High 16-53 40, 41 finding [address] [place] [address] [phone] Lactic Acid 6.1 mmol/L High 0.5-2.0 42 Laboratory test 05/09/2017 [facility] Ammonia 43 ?mol/L N 16- 53 43, 44 finding [address] [place] [address] [phone] Lactic Acid 1.3 mmol/L N 0.5-2.0 45 Laboratory test 05/09/2017 [facility] Ammonia 148 ?mol/L High 16-53 46, 47 finding [address] [place] [address] [phone] Lactic Acid 5.2 mmol/L High 0.5-2.0 48 Laboratory test 05/09/2017 [facility] Ammonia 147 ?mol/L High 16-53 49, 50 finding [address] [place] [address] [phone] Lactic Acid 4.8 mmol/L High 0.5-2.0 51 Routine 03/20/2017 N2N/CCD Import Aerobic [...] finding Sensitivities Below Anca Panel For 01/25/2017 [facility] Myeloperoxidase AB < 0.2 U N 59 Vasculitis [address] [place] [address] [phone] Proteinase 3 AB < 0.2 U N 60 Hla B27 01/25/2017 [facility] Hla B27 Negative N 61 [address] [place] [address] [phone] Hla B27 Interp See Comment N 62 Protein 01/25/2017 [facility] Total 7.0 g/dL N 6.3 - Electrophoresis [address] [facility] Protein(Pep) 7.9 [place] [address] [phone] Albumin 3.8 g/dL N 3.4-4.7 Alpha-1 Globulin 0.2 g/dL N 0.1-0.3 Alpha-2 Globulin 0.9 g/dL N 0.6-1.0 Beta Globulin 1.1 g/dL N 0.7-1.2 Gamma Globulin 1.1 g/dL N 0.6-1.6 Albumin/Globulin Ratio 1.17 N Impression See Comment N 63 Laboratory test finding 01/25/2017 [facility] Aldolase 5.5 U/L N <7.[address] [place] [address] [phone] Ferritin 99.5 ng/mL N 24-336 65 Angiotensin Converting Enzyme 45 U/L N 8 - 53 66 Laboratory test 12/01/2016 [facility] C Reactive 4.31 mg/L N < 5.[address] [place] [address] [phone] Erythrocyte Sed Rate 9 mm/Hr N 0-20 Rheumatoid Factor <15 IU/mL N <15 68 Antibody Screen NEGATIVE N Lyme Disease Serology Negative N Negative 69 Vitamin D, 1,25 Dihydroxy 86 pg/mL Abnormal 18-64 70 Vitamin B12 And 12/01/2016 [facility] Vitamin B12 344 pg/mL N 180-914 71 Folate Serum [address] [place] [address] [phone] Folic Acid (Folate) 13.87 ng/mL N >3.99 CBC W/Auto 12/01/2016 [facility] White Blood 8.3 10^3/uL N 3.5 -10.[address] [place] [address] [phone] Red Blood Count 5.37 10^6/uL N 4.0-5.4 [...] Cells % 0 N Laboratory test 12/01/2016 [facility] Cyclic Citrullinated < 15.6 U N [address] [place] [address] [phone] Anti Nuclear Antibody 0.3 U N 73 Laboratory test finding 06/15/2016 N2N/CCD Import @Multispan Pat Id: [id number] @[facility] Req #: [id number] 1 C-Reactive Protein,Quant < 2.9 mg/L Glycohemoglobin (A1c) 5.6 % 4.2-6.3 75 Hepatitis C Antibody Nonreactive Is Patient Fasting? Fasting Signal/Cutoff ratio < 0.02 76 eAG 114 mg/dL CBC 06/15/2016 N2N/CCD Import @Multispan Pat Id: [id number] @[facility] Req #: [id number] 1 Hematocrit 47.9 % 38-48 Hemoglobin 16.3 gm/dL 12.8-17 Mean Cell Volume 86.8 fl 80-96 Mean Corpuscular HGB 29.5 pg 27-33 Mean Corpuscular HGB Conc 34.0 g/dL 31.7-36 Mean Platelet Volume 9.2 fL 6.6-10.6 Platelet Count 281 K/uL 150-400 Red Blood Count 5.52 M/uL 4.2-5.8 Red Cell Distri Width %CV 12.7 % 11.6-15.8 White Blood Count 6.5 K/uL 3.4-10.5 Comprehensive Metabolic Panel 06/15/2016 N2N/CCD Import @Multispan Pat Id: [id number] @[facility] Req #: [id number] 1 Alb/Glob 1.1 ratio Albumin 3.7 g/dL [...] g/dL 6.4-8.2 Homocyst(E)Ine, P/S 06/15/2016 N2N/CCD Import @[facility] Pat Id: [id number] @[facility] Req #: [id number] 1 Homocyst(e)ine, P/S 11.9 umol/L 0-15 78 LDL Cholesterol Profile 06/15/2016 N2N/CCD Import @[facility] Pat Id: [id number] @[facility] Req #: [id number] 1 Cholesterol 193 mg/dL 79 HDL Cholesterol [...] 31.7-36 Mean Platelet Volume 9.1 fL 6.6-10.6 Labette # 0.36 K/uL 0-0.8 Labette % 5.6 % 0-10 Neut# 4.49 K/uL 1.8-7 Neut% 69.5 % 33-73 Platelet Count 280 K/uL 150-400 Red Blood Count 5.59 M/uL 4.2-5.8 Red Cell Distri Width %CV 12.6 % 11.6-15.8 Red Cell Distri Width SD 39.8 fl 36-51 White Blood Count 6.5 K/uL 3.4-10.5 Iron-Tibc-%Sat 07/02/2015 [facility]2N/[facility] Import Serum Iron 97 g/dL 65-175 Total Iron Binding Capacity 394 g/dL 250-450 Transferrin %Saturation 25 % 12-57 Vitamin B12 And Folate 07/02/2015 N[facility]N/[facility] Import Folic Acid 16.0 ng/mL 3.1-17.5 Vitamin B12 453 pg/mL 193-986 Laboratory test 06/21/2015 [facility]N/[facility] Import Homocyst(E)Ine, 12.3 umol/L 0- 15 87 finding Plasma LDL Cholesterol 06/21/2015 [facility]N/[facility] Import Cholesterol 201 mg/dL 88 Profile HDL [...] Count 4.9 K/uL 3.4-10.5 Laboratory test 02/18/2015 [facility] Import Esophageal Biopsy See Note 92 finding [...] RBC 10-20 rbc/hpf High 0-7 Urine Specific [place] >=1.030 1.01-1.03 Urine Urobilinogen - Dipstick 0.2 E.U./dL 0.2-1 Urine WBC 0-2 wbc/hpf 0-7 Laboratory test 07/22/2014 [facility]N/S[facility]I Import C-Reactive 1.92 mg/L finding Protein,Cardiac CK 129 U/L 39-308 LDL Cholesterol Profile 07/22/2014 [facility]N/S[facility]I Import Cholesterol 221 mg/dL 94 HDL Cholesterol 38 mg/dL 95 LDL-Cholesterol 113 mg/dL 96 Triglycerides 350 mg/dL 97 Laboratory test finding 06/18/2014 [facility]N/S[facility]I Import CK 112 U/L 39-308 Uric Acid 5.6 mg/dL 3.5-7.2 Urine Screen 06/02/2014 [facility]N/[facility]I Import Urine Bilirubin - Dipstick Negative Urine Blood Negative Urine Clarity Clear Urine Color Straw Urine Glucose - Dipstick Negative mg/dL Urine Ketone Negative mg/dL Urine Leuk Esterase Negative Urine Nitrite - Dipstick Negative Urine PH 7.5 1 6.5-7.5 Urine Protein - Dipstick Negative mg/dL Urine Specific [place] 1.010 1 1.01-1.03 Urine Urobilinogen - Dipstick 0.2 E.U./dL 0.2-1 Laboratory test 06/02/2014 [facility]N/[facility]I Import Antinuclear Negative 98 finding Antibodies, Ifa C-Reactive Protein,Quant 15.0 mg/L High 0-4.9 CK 405 U/L High 26-190 CK-MB (Mass) 2.3 ng/mL 0.5-8.2 Free T4 0.86 ng/dL 0.71-1.85 Lyme AB/Total Immunoglobulins < 0.91 Isr 0-0.9 99 Lyme Disease Antibody,QT,Igm 1.73 index High 0-0.79 100 Relative % Index 0.6 % 101 Sedimentation Rate 5 mm/hr 0-20 Thyroid Stim Hormone 2.23 uIU/mL 0.49-4.67 Lyme Igg & Igm By Western 06/02/2014 N2N/CCD Import Lyme AB Igg By Western . Blot Blot Lyme Igg WB Interpretation Negative 102 Lyme Igm WB Interpretation Negative 103 P18 AB Absent P23 AB Absent P23 AB Present High P28 AB Absent P30 AB Absent P39 AB Absent P39 AB Absent P41 AB Absent P41 AB Absent P45 AB Absent P58 AB Absent P66 AB Absent P93 AB Absent Comprehensive Metabolic Panel 06/02/2014 N2N/CCD Import Alb/Glob [...] Glucose 92 mg/dL 76-115 If >60 mL/min 104 Potassium 4.1 mmol/L 3.5-5.1 SGPT/Alt 58 U/L 30-65 Sgot/Ast 32 U/L 16-40 Sodium 139 mmol/L 136-145 Total Protein 6.8 g/dL 6.3-8 CBS W/Automated Diff 06/02/2014 N2N/CCD Import Bas% 0.8 % 0.1-1 Baso # [...] 31.7-36 Mean Platelet Volume 9.0 fL 6.6-10.6 Labette # 0.39 K/uL 0-0.6 Labette % 10.0 % 0-10 Neut# 2.35 K/uL 1.8-7 Neut% 60.2 % 33-73 Platelet Count 209 K/uL 150-400 Red Blood Count 5.17 M/uL 4.2-5.8 Red Cell Distri Width %CV 12.8 % 11.6-15.8 Red Cell Distri Width SD 41.3 fl 36-51 White Blood Count 3.9 K/uL 3.4-10.5 Comprehensive Metabolic Panel 04/03/2014 N2N/CCD Import Alb/Glob 0.9 ratio Albumin 3.7 g/dL [...] 7.6 g/dL 6.3-8 CBC W/Automated Diff 04/03/2014 N2N/CCD Import Baso # 0.04 K/uL Low 0.1- 0.2 Eos # 0.01 K/uL 0-0.5 Hematocrit 47.4 % 38-48 Hemoglobin 16.5 gm/dL 12.8-17 Lymph # 0.50 K/uL Low 1.2-4 Mean Cell Volume 87.3 fl 80-96 Mean Corpuscular HGB 30.4 pg 27-33 Mean Corpuscular HGB Conc 34.8 g/dL 31.7-36 Mean Platelet Volume 8.8 fL 6.6-10.6 Labette # 0.17 K/uL 0-0.6 Neut# 5.99 K/uL [...] [email or web address] 3 Performed at: RN - [facility] [address] [id number] [employer] Operator Helper: Mabel Norris MD, Phone: [phone] 4 Reference Guidelines*: Desirable: ........... < 200 [...] influenza A and B molecular assay. Method: Fast [employer]itor Chromatographic immunoassay 15 FLU LIKE SYMPTOMS,ACHING,FEVER 16 [...] be found at www.kdoqi.org. 23 Z12.5,Z00.01,M79.1,Z11.9 24 INFCE Result Units: s/co ratio Negative: < 0.8 Indeterminate: 0.8 - 0.9 Positive: > 0.9 The CDC recommends that a positive HCV antibody result be followed up with a HCV Nucleic Acid Amplification test (267026). Performed at: [address] [id number] [employer] Helper: Mabel Norris MD, Phone: [phone] 25 THIS ASSAY IS NOT INTENDED A CANCER SCREENING TEST The concentration of PSA in a given specimen, determined with assays from different manufacturers, can vary due to differences in assay methods and reagent specificity. Values obtained from different assay methods cannot be used interchangeably. Method: [employer] [place] Chemiluminescent immunoassay. 26 Note: Persistent reduction for 3 months or more in an eGFR <60 mL/min/1.73 m2 defines CKD. Patients with eGFR values >/=60 mL/min/1.73 m2 may also have CKD if evidence of persistent proteinuria is present. The original MDRD equation for estimated GFR is not valid for patients less than 18 years of age. Additional information may be found at www.kdoqi.org. 27 Reference Guidelines*: Desirable: ........... < 200 mg/dL Borderline High: ..... 200-239 mg/dL High: ................ >=240 mg/dL * The National Cholesterol Education Program (NCEP) 28 Reference Guidelines*: Low HDL: ..... < 40 mg/dL Normal: ..... 40-60 mg/dL Desirable: ... > 60 mg/dL *The National Cholesterol Education Program(NCEP) 29 Reference Guidelines*: Optimal:........... <100 mg/dL Near Optimal....... 100-129 mg/dL Borderline High.... 130-159 mg/dL High............... 160-189 mg/dL Very High.......... >=190 mg/dL * Source: National Cholesterol Education Program (NCEP) 30 Reference Guidelines*: Normal: ............. < 150 mg/dL Borderline High: .... 150-199 mg/dL High: ............... 200-499 mg/dL Very High: .......... > 500 mg/dL * Source: National Cholesterol Education Program (NCEP) 31 CENTER RIB PAIN OFF AND ON [...] populations. Clinical correlation is suggested. 34 Comment: 3 min 35 Comment: 3 min 36 [facility] Severe Sepsis and Septic Shock Management Bundle Measure requires all lactic acids initially measuring >2.0 mmol/L be repeated. [facility] Severe Sepsis and Septic Shock Management Bundle Measure requires all lactic acids initially measuring >2.0 mmol/L be repeated. 37 Comment: 2 min 38 Comment: 2 min 39 [facility] Severe Sepsis and Septic Shock Management Bundle Measure requires all lactic acids initially measuring >2.0 mmol/L be repeated. [facility] Severe Sepsis and Septic Shock Management Bundle Measure requires all lactic acids initially measuring >2.0 mmol/L be repeated. 40 Comment: 1 min 41 Comment: 1 min 42 [facility] Severe Sepsis and Septic Shock Management Bundle Measure requires all lactic acids initially measuring >2.0 mmol/L be repeated. [facility] Severe Sepsis and Septic Shock Management Bundle Measure requires all lactic acids initially measuring >2.0 mmol/L be repeated. 43 Comment: baseline 44 Comment: baseline 45 [facility] Severe Sepsis and Septic Shock Management Bundle Measure requires all lactic acids initially measuring >2.0 mmol/L be repeated. 46 Comment: 5 min 47 Comment: 5 min 48 [facility] Severe Sepsis and Septic Shock Management Bundle Measure requires all lactic acids initially measuring >2.0 mmol/L be repeated. [facility] Severe Sepsis and Septic Shock Management Bundle Measure requires all lactic acids initially measuring >2.0 mmol/L be repeated. 49 Comment: 7 min 50 Comment: 7 min 51 [facility] Severe Sepsis and Septic Shock Management Bundle Measure requires all lactic acids initially measuring >2.0 mmol/L be repeated. 52 SURGICAL SITE ON NECK, OOZING 53 PASTURELLA SPECIES 54 MIXED SKIN JONATHAN 55 NO ORGANISMS SEEN 56 MODERATE WHITE BLOOD CELLS 57 [id number] 58 SEE RESULT BELOW Name: FLAKO PELAYO : [address]: Toby Medina MD Acct: [id number] Unit: [id number] AGE: 51 Location: [facility] Re03/05/17 SEX: M Status: DEP ER SPEC: [id number] MACO: 03/05/[address] [facility] DR: Toby Medina MD REQ: [id number] RECD: 03/06/17 STATUS: ATUL HERNANDES DR: Evan Werner MD _ SOURCE: URINE SPDESC: ORDERED: Urine Culture COMMENTS: [id number] Procedure Result Reported Site Urine Culture Final 03/07/17- 853 ML No Growth (<1,000 CFU/mL) * ML - MAIN LAB ([facility]) . END OF REPORT * ML=Testing performed at Main Lab DEPARTMENT OF PATHOLOGY, [address] [place] [address] Flako Benitez M.D. Director ILIANA # [id number] 59 REFERENCE VALUE <0.4 (Negative) 60 REFERENCE VALUE <0.4 (Negative) Test Performed by: [facility] - [address] [address] 61 REFERENCE VALUE Not Applicable 62 RESULT: HLA-B27 antigen was not detected. ADDITIONAL INFORMATION Method: Flow Cytometry Performing Laboratory CLIA# [id number] Test Performed by: [place] [address] 63 RESULT: No apparent monoclonal protein on serum electrophoresis. Test Performed by: [place] [address] 64 Test Performed by: [place] [address] 65 Please check labs today 66 Test Performed by: [place] [address] 67 Acute inflammation: >10.00 68 Test Performed by: [place] [address] 69 Serologic response to B. burgdorferi infection is not detected, but cannot rule out early infection during which low or undetectable antibody levels to B. burgdorferi may be present. If clinically indicated, a new serum specimen should be submitted in 7-14 days. Test Performed by: [facility] - [address] [address] 70 ADDITIONAL INFORMATION This test was developed and its performance characteristics determined by [facility] in a manner consistent with CLIA requirements. This test has not been cleared or approved by the U.S. Food and Drug Administration. Test Performed by: [address] [address] 71 Normal Range 180 to 914 Indeterminate Range 145 to 180 Deficient Range <145 72 REFERENCE VALUE <20.0 (Negative) Test Performed by: [address] [address] 73 REFERENCE VALUE <=1.0 (Negative) Test Performed by: [facility] - [facility] [address] [place] [address] 74 Z00.00,Z11.9 75 Elevated levels of HbA1c suggest the need for more aggressive treatment of glycemia. The [place] [employer] recommends that a primary goal [...] [email or web address]. 78 Performed at: RN - [facility] [address] [id number] [employer] Helper: Mabel Norris MD, Phone: [phone] 79 Reference Guidelines*: Desirable: ........... < 200 [...] <1:80 Borderline 1:80 Positive >1:80 Performed at: [address] [id number] [employer] Helper: Mabel Norris MD, Phone: [phone] QUERY: Is the Patient Fasting? N 85 Performed at: [address] [id number] [employer] Machine Operator Helper: Mabel Norris MD, Phone: [phone] Performed at: [address] [id number] [employer] Helper: James Dash MD, Phone: [phone] Performed at: [address] [id number] [employer] Operator Helper: Mabel Norris MD, Phone: [phone] Reference Guidelines*: Desirable: ........... < 200 [...] 0.2 cm. Submitted entirely in one block. SHEA/dinesh PRE OPERATIVE DIAGNOSIS History of polyp, GERD REVIEW CODE CODE: I Signed Electronically signed NENO CONDE MD [id number] 09/07/14 [email or web address] Deleted by Reflex Group [facility] 94 Reference Guidelines*: Desirable: ........... < 200 [...] Source: National Cholesterol Education Program (NCEP) 98 Negative <1:80 Borderline 1:80 Positive >1:80 99 Negative <0.91 Equivocal 0.91 - 1.09 Positive >1.09 Please note reference interval change 100 Negative <0.80 Equivocal 0.80 - 1.19 Positive >1.19 IgM levels may peak at 3-6 weeks post infection, then gradually decline. 101 < 5%=non AMI 5 - 10%=borderline for AMI > 10%=positive for AMI FOR DIAGNOSTIC PURPOSES, THE CK-MB RESULT (MASS AND RELATIVE PERCENT INDEX) SHOULD BE USED IN CONJUNCTION WITH OTHER PERTINENT CLINICAL DATA. 102 Positive: 5 of the following Borrelia-specific bands: 18,23,28,30,39,41,45,58, 66, and 93. Negative: No bands or banding patterns which do not meet positive criteria. 103 Note: An equivocal or positive EIA result [...] are those recommended by CDC/ASTPHLD. p23=Osp C, m30=lnuvymxer Note: Sera from individuals with the following may cross react in the Lyme Western Blot assays: other spirochetal diseases (periodontal disease, leptospirosis, relapsing fever, yaws, and pinta); connective autoimmune (Rheumatoid Arthritis and Systemic Lupus Erythematosus and also individuals with Antinuclear Antibody); other infections ([place] Spotted Fever; Farooq-Alejandro Virus, and Cytomegalovirus). Performed at: RN - [facility] [address] [id number] Spar Machine Operator Helper: Mabel Norris MD, Phone: [phone] Note: Persistent reduction for 3 months or more in an eGFR <60 mL/min/1.73 m2 defines CKD. Patients with eGFR values >/=60 mL/min/1.73 m2 may also have CKD if evidence of persistent proteinuria is present. The original MDRD equation for estimated GFR is not valid for patients less than 18 years of age. Additional information may be found at www.kdoqi.org. 105 Note: Persistent reduction for 3 months [...] can cause similiar symptoms. 109 Performed at: [facility] [address] [id number] [employer] Machine Operator Helper: Mabel Norris MD, Phone: [phone] Negative 0 - 19 Weak Positive [...] 6 - 9 Positive >9 Performed at: [facility] [id number] [employer] Machine Operator Helper: Joe Kline MD, Phone: [phone] Procedures Date Code Description Status 10/09/2017 21828 Nasal Endoscopy, Diagnostic Completed 05/11/2017 30077 Rad Shoulder Comp, Min. 2 Views Completed 05/11/2017 44515 Inject/Drain Joint/Bursa Intermediate W/O US Completed 12/26/2016 11939 Nasal Endoscopy, Diagnostic Completed 05/26/2015 86804211 Colonoscopy Completed 05/26/2015 28148 Colonoscopy Flexible Diagnostic Completed 05/26/2015 23629 Pure Tone Hearing Test, Air Completed 04/29/2014 17833 Pure Tone Hearing Test, Air Completed 01/01/2013 61903 Rad Exam; Ankle Comp Completed 01/01/2013 88713 Rad Exam; Knee Comp Completed 09/07/2011 20972 Arthroscopy Shoulder Debridement Limited Completed 08/22/2011 58475 Nasal Endoscopy, Diagnostic Completed 08/15/2011 64383 Pure Tone-Air Condition Only Completed 08/10/2010 53423 Visual funct screen test, automated Completed 08/10/2010 41754 Pure Tone-Air Condition Only Completed 10/26/2009 62897 Nasal Endoscopy, Diagnostic Completed 03/19/2007 18418 Excision, Benign Lesion Scalp Neck Hands Feet Genitalia Completed 0.5 Or Le Encounters Type Date Location Provider Dx Diagnosis Office Visit 07/19/2018 Rheumatology Nolberto Sanchez4.0 Chondrocostal 10:00a Services Of Clara Guy junction syndrome [Tietze] M60.9 Myositis, unspecified Office Visit 03/14/2018 10:30a [facility] Dermatology AT Rudi Lemoszer, 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, 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 lower limb, including hip B07.0 Plantar wart Z08 Encntr for follow-up exam after trtmt for malignant neoplasm Z85.828 Personal history of other malignant neoplasm of skin Office Visit 01/21/2018 2:30p Spine Navigator Rosi Reyes M51.37 Other intervertebral Of [facility] PA-C disc degeneration, lumbosacral region M51.36 Other intervertebral disc degeneration, lumbar region Office Visit 01/07/2018 2:00p Spine Navigator Rosi Reyes M51.36 Other intervertebral Of [facility] PA-C disc degeneration, lumbar region M54.16 Radiculopathy, lumbar region M25.551 Pain in right hip Office Visit 12/17/2017 10:40a Rheumatology Evan M60.9 Myositis, Services Of [facility] Mosqueda M.D. unspecified M70.61 Trochanteric bursitis, right hip Office 12/06/2017 Orthopedic Luis Mckeon R53.1 Weakness Visit 8:45a Services Of [facility] Little MD AT [place] Office 11/13/2017 ENT Services Of Juan Manuel Olivares.1 Polypoid sinus Visit 3:45p C.M.A. AT [place] Malcolm degeneration [place] Office 06/04/2017 Rheumatology Evan M60.9 Myositis, unspecified Visit 3:20p Services Of Clara Mosqueda M.D. Office 05/11/2017 Orthopedic Luis Mckeon S43.51xA Sprain of right Visit 10:15a Services Of Clara Little MD acromioclavicular AT [place] joint, initial encounter M25.511 Pain in right shoulder Office Visit 03/29/2017 9:40a Rheumatology Sukumar Sanchez.652 Pain in left Services Of Clara Guy thigh M79.651 Pain in right thigh R93.6 Abnormal findings on diagnostic imaging of limbs M17.0 Bilateral primary osteoarthritis of knee Office Visit 02/13/2017 ENT Services Of Juan Manuel Olivares.1 Polypoid sinus 3:30p C.M.A. 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 M17.0 Bilateral primary osteoarthritis of knee Office Visit 12/28/2016 2:30p Sports Medicine Jeanna Seals MD M79.652 Pain in left Of Clara AT thigh [place] M79.651 Pain in right thigh R93.6 Abnormal findings on diagnostic imaging of limbs Office Visit 12/07/2016 3:30p Sports Medicine Jeanna Seals MD M79.652 Pain in left Of [employer] AT thigh [place] M79.651 Pain in right thigh R93.6 Abnormal findings on diagnostic imaging of limbs Office Visit 11/30/2016 3:30p Sports Medicine Jeanna Seals MD M25.561 Pain in right Of [employer] AT knee [place] M79.652 Pain in left thigh M79.651 Pain in right thigh Office Visit 09/21/2016 4:00p Sports Medicine Jeanna Seals MD M25.561 Pain in right Of [employer] AT knee [place] M79.652 Pain in left thigh M79.651 Pain in right thigh M71.21 Synovial cyst of popliteal space [Diaz], right knee M17.0 Bilateral primary osteoarthritis of knee S83.241A Oth tear of medial meniscus, current injury, r knee, init Office Visit 08/31/2016 2:00p Sports Medicine Jeanna Seals MD M79.652 Pain in left Of [employer] AT thigh [place] M25.561 Pain in right knee M79.651 Pain in right thigh Office Visit 06/29/2016 10:30a Sports Medicine Jeanna Seals MD M25.561 Pain in right Of [employer] AT knee [place] M71.21 Synovial cyst of popliteal space [Diaz], right knee M17.11 Unilateral primary osteoarthritis, right knee Office Visit 06/08/2016 3:00p Sports Medicine Jeanna Seals MD M25.561 Pain in right Of [employer] AT knee [place] M17.11 Unilateral primary osteoarthritis, right knee Office Visit 04/27/2016 2:45p Sports Medicine Jeanna Seals MD M25.561 Pain in right Of [employer] AT knee [place] M71.21 Synovial cyst of popliteal space [Diaz], right knee Office Visit 03/30/2016 3:00p Sports Medicine Jeanna Seals MD M25.561 Pain in right Of [employer] AT knee [place] M17.11 Unilateral primary osteoarthritis, right knee E66.9 Obesity, unspecified M25.761 Osteophyte, right knee Office Visit 05/27/2015 [place]/Lee Jacobs Muscle 9:15a Neurologic Serv Of Clara Espinoza M.D. Disorders Unspec Office Visit 01/25/2015 Neurohospitalist Toby Ray.9 Muscle 9:00a Clinic Brooks Espinoza Disorders Unspec Office Visit 11/24/2014 Orthopedic Services Of Joe Viramontes47 Pain Joint 11:30a Clara Collado M.D. Ankle & Foot 726.71 Bursitis Or Tendinitis Achilles Office Visit 11/03/2014 11:00a Orthopedic Services Joe Tobias, 719.47 Pain Joint Of [employer] AT Danial M.D. Ankle & Foot 355.9 Mononeuritis Unspec Site 782.0 Skin Sensation Disturbance 729.5 Pain In Limb Office Visit 06/30/2014 3:30p ENT Services Of Lashay Candelario7.0 Rhinitis C.M.A. AT M.D. Allergic Due To [place] Pollen 471.8 Polyp Sinus Other Office Visit 04/21/2014 11:00a Orthopedic Joe Collado 733.29 Cyst Bone Other Services Of [employer] M.D. AT [place] Office Visit 06/24/2013 4:00p ENT Services Of Lashay Candelario7.0 Rhinitis C.M.A. AT M.D. Allergic Due To [place] Pollen 473.2 Sinusitis Chronic Ethmoidal 473.0 Sinusitis Chronic Maxillary Office Visit 02/24/2013 Orthopedic Joe Collado 726.71 Bursitis Or 1:00p Services Of Brooks Tendinitis Achilles C.M.A. Office Visit 01/29/2013 Orthopedic Arline 727.06 Tenosynovitis Foot 3:45p Services Of Clara Smith M.D. & Ankle AT [place] Office Visit 01/01/2013 Orthopedic Arline 719.46 Pain Joint Lower 9:00a Services Of Clara Smith M.D. Leg AT [place] 727.06 Tenosynovitis Foot & Ankle 726.64 Tendinitis Patellar Office Visit 05/28/2012 2:00p ENT Services Of Juan Manuel Malcolm 477.0 Rhinitis C.M.A. AT M.D. Allergic Due To [place] Pollen 471.8 Polyp Sinus Other Office Visit 08/22/2011 2:15p ENT Services Of Juan Manuel Malcolm 473.2 Sinusitis C.M.A. AT M.D. Chronic [place] Ethmoidal 473.0 Sinusitis Chronic Maxillary Office Visit 08/09/2011 2:00p [employer] Bipin Fajardo6.10 Bursae & Tendon of [employer] M.D. Disorders Shoulder Region Unspec Office Visit 07/28/2011 10:30a [employer] Bipin Fajardo6.10 Bursae & Tendon of [employer] M.D. Disorders Shoulder Region Unspec Office Visit 05/23/2011 3:30p ENT Services Of Lashay Candelario1.8 Polyp Sinus C.M.A. AT [place] M.D. Other 477.0 Rhinitis Allergic Due To Pollen Office Visit 04/19/2010 2:00p ENT Services Of Juan Manuel Malcolm, 471.8 Polyp Sinus C.M.A. AT M.D. Other [place] 473.2 Sinusitis Chronic Ethmoidal 327.23 Obstructive Sleep Apnea Adult & Pediatric Office Visit 03/08/2010 1:00p ENT Services Of Juan Manuel Malcolm, 471.8 Polyp Sinus C.M.A. AT M.D. Other [place] Office Visit 01/18/2010 3:30p ENT Services Of Juan Manuel Malcolm, 473.2 Sinusitis C.M.A. AT M.D. Chronic Danial Ethmoidal 471.8 Polyp Sinus Other 477.0 Rhinitis Allergic Due To Pollen Office Visit 11/16/2009 2:30p ENT Services Of Juan Manuel Malcolm, 473.2 Sinusitis C.M.A. AT M.D. Chronic [place] Ethmoidal 471.8 Polyp Sinus Other Office Visit 10/26/2009 3:00p ENT Services Of Juan Manuel Malcolm, 473.2 Sinusitis C.M.A. AT M.D. Chronic [place] Ethmoidal 471.8 Polyp Sinus Other 380.4 Impacted Cerumen Plan of Treatment Future Appointment(s):05/20/2019 10:20 am - Evan Mosqueda M.D. at Rheumatology Services Of [facility]07/02/2019 10:30 am - Evan Werner MD at [facility] Primary Care01/16/2019 - Evan Mosqueda M.D.M60.9 Myositis, lwfefqnupueJ20.569 Pain in unspecified kneeNew Medication:Neoprene Knee Stabilizer/Medium - Use daily as needed for supportNew Therapy:Physical CfnnagiI97.121 Dry eye syndrome of right lacrimal glandFollow up:Follow up in 3 to 4 months or sooner if mobazhiU75.37 Other intervertebral disc degeneration, lumbosacral region
[2019-01-28 07:21] VITALS: BP 132/83
--- NOTE | 2019-01-28 07:46 | UC ---
Throat Pain/Nasal Eugenio HPI - HPI Summary HPI Summary: sinus pain and pressure x 2 weeks + yellow/ green nasal discharge, post nasal drip , productive cough no fever, + hills hx of recurrent sinusitis has been using sinus rinse with no improvements - History of Current Complaint Chief Complaint: UCGeneralIllness Stated Complaint: SINUS CONCERN Time Seen by Provider: 01/28/19 07:22 Hx Obtained From: Patient Onset/Duration: Gradual Onset, Lasting Weeks - 2, Still Present Severity: Moderate Pain Intensity: 3 Pain Scale Used: 0-10 Numeric Cough: Productive Associated Signs & Symptoms: Positive: Sinus Discomfort, Nasal Discharge. Negative: Drooling, Wheezing, Hoarseness, Fever, Vomiting, Rash - Allergies/Home Medications Allergies/Adverse Reactions: Allergies Allergy/AdvReac Type Severity Reaction Status Date / Time amoxicillin [From Augmentin] Allergy Hives Verified 01/28/19 07:17 aspirin Allergy Congestion-Pt Verified 01/28/19 07:17 can tolerate at low dose clavulanic acid Allergy Hives Verified 01/28/19 07:17 [From Augmentin] ibuprofen Allergy Unknown Verified 01/28/19 07:17 Reaction Details levofloxacin [From Levaquin] Allergy tendinitis Verified 01/28/19 07:17 sulfamethoxazole Allergy Swelling Verified 01/28/19 07:17 [From Bactrim] trimethoprim [From Bactrim] Allergy Swelling Verified 01/28/19 07:17 Home Medications: Home Medications Lactobacillus Acidophilus [Probiotic] 1 cap PO DAILY 01/28/19 [History Confirmed 01/28/19] Omeprazole 40 mg PO DAILY 01/28/19 [History Confirmed 01/28/19] Prednisolone Acetate/Pf [Prednisolone Acet 1% Eye Drop] 5 ml OP DAILY 01/28/19 [ History Confirmed 01/28/19] PMH/Surg Hx/FS Hx/Imm Hx - Additional Past Medical History Additional PMH: Sampter's Triad skin cancer Respiratory History: Asthma - Surgical History Surgical History: Yes Surgery Procedure, Year, and Place: sinus surgery, bilateral FESS surgeries for sinus, deviated septum, umb. hernia repair, lt shoulder surgery LABRAL REPAIR ; undescended testicle;LASIK EYE SURGERY, right EYE IMPLANT (INTACS LENS IMPLANT)SCANNED INTO OTHER FACILITIES REPORTS-SPOKE TO DR LAUGHLIN, HE SAID TO GET ORBIT XRAYS TO BE SURE BUT THINKS ITS AND ACRYLIC SUBSTANCE. ( XRAYS DONE - CLEARED BY DR COLON) - Family History Known Family History: Positive: Cardiac Disease - Social History Alcohol Use: Occasionally Alcohol Amount: WEEKENDS Substance Use Type: None Substance Use Comment - Amount & Last Used: occassionally edible THC-last used 08/2018 Smoking Status (MU): Never Smoked Tobacco Have You Smoked in the Last Year: No - Immunization History Most Recent Influenza Vaccination: June 2016 Most Recent Tetanus Shot: 05/18/17 Vaccination Up to Date: No Review of Systems All Other Systems Reviewed And Are Negative: Yes Constitutional: Positive: Chills, Fatigue Skin: Positive: Negative Eyes: Positive: Negative ENT: Positive: Ear Ache, Nasal Discharge, Sinus Congestion, Sinus Pain/ Tenderness Respiratory: Positive: Cough Cardiovascular: Positive: Negative Is Patient Immunocompromised?: No Physical Exam Triage Information Reviewed: Yes Appearance: Well-Appearing, No Pain Distress, Well-Nourished Vital Signs: Initial Vital Signs Temp 97.2 F 01/28/19 07:15 Pulse 56 01/28/19 07:15 Resp 16 01/28/19 07:15 BP 132/83 01/28/19 07:15 Pulse Ox 99 01/28/19 07:15 Vital Signs Reviewed: Yes Eye Exam: Normal Eyes: Positive: Conjunctiva Clear ENT: Positive: Normal ENT inspection, Hearing grossly normal, Pharynx normal, Nasal congestion, Nasal drainage, TMs normal, Sinus tenderness. Negative: TM bulging, TM dull, TM red, Tonsillar swelling, Tonsillar exudate Neck exam: Normal Neck: Positive: Supple, Nontender, No Lymphadenopathy Respiratory: Positive: Chest non-tender, Lungs clear, Normal breath sounds Cardiovascular: Positive: RRR, No Murmur, Pulses Normal Skin Exam: Normal Throat Pain/Nasal Course/Dx - Differential Dx/Diagnosis Provider Diagnosis: Sinusitis Discharge - Sign-Out/Discharge Documenting (check all that apply): Patient Departure All imaging exams completed and their final reports reviewed: No Studies - Discharge Plan Condition: Stable Disposition: HOME Prescriptions: DOXYcycline CAP(*) [DOXYcycline 100MG CAP(*)] 100 mg PO BID #20 cap Patient Education Materials: Sinusitis (ED) Referrals: Evan Werner MD [Primary Care Provider] - 2 Weeks - Billing Disposition and Condition Condition: STABLE Disposition: Home
== END 2019-01-28 07:32 | disposition home or self-care (01) ==
LOC: UCCORT 07:08
DX: J32.9 Chronic sinusitis, unspecified (principal); J45.909 Unspecified asthma, uncomplicated; Z88.8 Allergy status to other drugs, medicaments and biological substances; Z91.09 Other allergy status, other than to drugs and biological substances; Z88.2 Allergy status to sulfonamides; Z88.1 Allergy status to other antibiotic agents; Z88.0 Allergy status to penicillin
CPT/HCPCS: 99212; G0463

== ENCOUNTER 2019-11-21 07:09 | Emergency (ER) | payer BC ==
--- OUTSIDE RECORDS SUMMARY | 2019-11-21 07:18 | XMS REPORT | Continuity of Care Document ---
:1965 External Reference #:[id number] Author Name Jeanna Seals MD (transmitted by agent of provider Norma Nelson) Address [address] [place] [id number] Care Team Providers Name Role Phone Umer Grier MD - Internal Medicine Care Team Information Collections Officer [phone] Evan Werner MD - Family Care Team Information Collections Officer [phone] Medicine Deejay Arthur MD - Allergy & Care Team Information Collections Officer [phone] Immunology Joe Collado MD - Orthopaedic Care Team Information Collections Officer [phone] Surgery Teletype Technician Prosthetics & Orthotics - Care Team Information Collections Officer [phone] Prosthetic/Orthotic Supplier Jeanna Seals MD - Sports Medicine Care Team Information Collections Officer [facility], - Care Team Information Collections Officer Ophthalmology Roel Amaay MD - Cardiovascular Care Team Information Collections Officer Disease Problems Active Problems Provider Date Weakness of [...] back pain Onset: 08/29/2011 Hyperlipidemia Onset: 08/15/2011 Arthralgia of the pelvic region and thigh Jeanna Seals MD Onset: 11/13/2019 Body mass index 25-29 - overweight Jeanna Seals MD Onset: 11/13/2019 Social History Type Date Description Comments Sex Unknown Tobacco Use Start: Unknown Never Smoked Cigarettes ETOH Use Occasionally consumes alcohol Tobacco Use Reviewed: 06/06/17 Patient has never smoked Recreational Drug Use Denies Drug Use Smoking Status Reviewed: 11/13/19 Patient has never smoked Exercise Type/Frequency Exercises [...] Evan Mosqueda 01/16/2019 Stabilizer/Medium needed for [place]. [facility] [place] Hydrochlorothiazide 1 by mouth every 90tabs [...] DR Negron HFA Unknown 108(90Base) mcg/Act Aerosol Probiotic 1 by mouth every Unknown Capsules day Medications Administered in Office Medication SIG Qnty Indications Ordering Provider Date Celestone 3 mg and 3mg Luis Little MD 05/11/2017 Injection Immunizations CPT Code Status Date Vaccine Lot # 97586 Given 07/19/2019 Influenza Virus Vaccine, Quadrivalent, Split, Preservative Free 14894 Given 02/25/2018 Tdap - Tetanus/Diptheria/Acellular Pertussis 80851 Given 06/29/2014 Influenza Virus 3Yrs & Over 26959 Given 07/12/2013 Influenza Virus 3Yrs & Over 59986 Given 07/22/2010 Pneumonia Vaccine 92154 Given 07/22/2010 Tdap - Tetanus/Diptheria/Acellular Pertussis Vital Signs Date Vital Result Comment 11/13/2019 4:12pm Height 68 inches 5'8" Weight 180.00 lb Heart Rate 72 /min BP Systolic 118 mmHg BP Diastolic 72 mmHg BMI (Body Mass Index) 27.4 kg/m2 07/08/2019 3:35pm Height 68 inches 5'8" Weight 183.06 lb Heart Rate 68 /min BP Systolic 130 mmHg BP Diastolic 76 mmHg Body Temperature 98.2 F O2 % BldC Oximetry 98 % BMI (Body Mass Index) 27.8 kg/m2 Results Description No Information Available Procedures Date Code Description Status 07/18/2019 [id number] Diabetic Retinal Eye Exam Completed 05/27/2019 [id number] Diabetic Retinal Eye Exam Completed 03/13/2019 [id number] Diabetic Retinal Eye Exam Completed 02/28/2019 692474576 Diabetic Retinal Eye Exam Completed 05/26/2015 [id number] Colonoscopy Completed Medical Devices Description No Information Available Encounters Type Date Location Provider Dx Diagnosis Office Visit 11/13/2019 Sports Medicine Jeanna Seals MD S79.911A Unspecified injury 2:50p Of [employer] Operator AT of right hip, [place] initial encounter Z68.27 Body mass index (BMI) 27.0-27.9, adult Office Visit 07/08/2019 3:30p [employer] Operator Primary Evan Werner, Z00.01 Encounter for Care general adult medical exam w abnormal findings Z12.11 Encounter for screening for malignant neoplasm of colon Z12.5 Encounter for screening for malignant neoplasm of prostate R07.9 Chest pain, unspecified Assessments Date Code Description Provider 11/13/2019 S79.911A Unspecified injury of right hip, initial Jeanna Seals MD encounter 11/13/2019 Z68.27 Body mass index (BMI) 27.0-27.9, adult Jeanna Seals MD 07/08/2019 Z00.01 Encounter for general adult medical Evan Werner MD examination with abnormal findings 07/08/2019 Z12.11 Encounter for screening for malignant Evan Werner MD neoplasm of colon 07/08/2019 Z12.5 Encounter for screening for malignant Evan Werner MD neoplasm of prostate 07/08/2019 R07.9 Chest pain, unspecified Evan Werner MD Plan of Treatment 11/13/2019 - Jeanna Seals, MDS79.911A Unspecified injury of right hip, initial kohsywhcsD03.27 Body mass index (BMI) 27.0-27.9, adultComments:Weight loss will be helpful. Diet plus exercise better than either cfossK03.911A Unspecified injury of right hip, initial jdtfgymvcJ59.27 Body mass index (BMI) 27.0-27.9, adultComments:Weight loss will be helpful. Diet plus exercise better than either alone Functional Status Description No Information Available Mental Status Description No Information Available Referrals Refer to Reason for Referral Status Appt Date Roel Amaya MD Received Complete 08/25/2019 [address] [place] [id number] [phone]
--- OUTSIDE RECORDS SUMMARY | 2019-11-21 07:19 | XMS REPORT | Continuity of Care Document ---
:1965 External Reference #:[id number] Author Name Jeanna Seals MD Address [facility] [place] [address] Care Team Providers Name Role Phone Umer Grier MD - Internal Medicine Care Team Information Tobacco Flavorer [phone] Evan Werner MD - Family Care Team Information Tobacco Flavorer [phone] Medicine Deejay Arthur MD - Allergy & Care Team Information Tobacco Flavorer Immunology Joe Collado MD - Orthopaedic Care Team Information Tobacco Flavorer Surgery Biochemist Prosthetics & Orthotics - Care Team Information Tobacco Flavorer Prosthetic/Orthotic Supplier Jeanna Seals MD - Sports Medicine Care Team Information Tobacco Flavorer [phone] [facility] - Care Team Information Tobacco Flavorer Ophthalmology Roel Amaya MD - Cardiovascular Care Team Information Tobacco Flavorer [phone] Disease Problems Active Problems Provider Date Weakness [...] back pain Onset: 08/29/2011 Hyperlipidemia Onset: 08/15/2011 Body mass index 25-29 - overweight Jeanna Seals MD Onset: 11/13/2019 Arthralgia of the pelvic region and thigh Jeanna Seals MD Onset: 11/13/2019 Social History [...] Evan Mosqueda, 01/16/2019 Stabilizer/Medium needed for [place] [place] Hydrochlorothiazide 1 by mouth every 90tabs [...] CPT Code Status Date Vaccine Lot # [id number] Given 07/19/2019 Influenza Virus Vaccine, Quadrivalent, Split, Preservative Free 54238 Given 02/25/2018 Tdap - Tetanus/Diptheria/Acellular Pertussis 80010 Given 06/29/2014 Influenza Virus 3Yrs & Over 29387 Given 07/12/2013 Influenza Virus 3Yrs & Over 00715 Given 07/22/2010 Pneumonia Vaccine 93397 Given 07/22/2010 Tdap - Tetanus/Diptheria/Acellular Pertussis Vital [...] Available Procedures Date Code Description Status 07/18/2019 134315902 Diabetic Retinal Eye Exam Completed 05/27/2019 207503708 Diabetic Retinal Eye Exam Completed 03/13/2019 986094730 Diabetic Retinal Eye Exam Completed 02/28/2019 093000044 Diabetic Retinal Eye Exam Completed 05/26/2015 87001628 Colonoscopy Completed Medical Devices Description No Information Available Encounters Type Date Location Provider Dx Diagnosis Office Visit 07/08/2019 [facility] Evan Z00.01 Encounter for 3:30p MD Debbi general adult medical exam w abnormal findings Z12.11 Encounter for screening for malignant neoplasm of colon Z12.5 Encounter for screening for malignant neoplasm of prostate R07.9 Chest pain, unspecified Assessments Date Code Description Provider 11/13/2019 M25.551 Pain in right hip Jeanna Seals MD 11/13/2019 Z68.27 Body mass index (BMI) 27.0-27.9, [...] Werner MD Plan of Treatment 11/13/2019 - Fnu Seemant, MDM25.551 Pain in right hipNew Xrays:Hip Right 2 Views And Pelvis 13752 - 80555, Ordered: 11/13/19New Therapy:Physical TherapyComments:2 months ago I was practicing with my son and fell on my right hip. Overall it's much improved but still lingering on. Pain is mainly on the lateral aspect.No treatment done so far. Not taking any pain medications.No groin painX-rays of the right hip: Minimal arthritis, no fractureSymptoms consistent with right distal gluteus medius tear with weakness and greater trochanter contusion and bursitis.We discussed further treatment options and alternatives including obtaining MRI for further evaluation.Plan:-Start physical therapy with a focus on gluteus medius strengthening program.-Pain control as needed with Tylenol. -Ice 15 minutes at a time, 3-4 times a day- Minimize painful activities.Follow-upin 6 weeksAll the questions were appropriately, he expressed ycxgvbmczpqmeP71.27 Body mass index (BMI) 27.0-27.9 , adultComments:Weight loss will be helpful. Diet plus exercise better than either lnuujO93.551 Pain in right hipNew Xrays:Hip Right 2 Views And Pelvis 51859 - 53078, Ordered: 11/13/19New Therapy:Physical TherapyComments:2 months ago I was practicing with my son and fell on my right hip. Overall it's much improved but still lingering on. Pain is mainly on the lateral aspect.No treatment done so far. Not taking any pain medications.No groin painX-rays of the right hip: Minimal arthritis, no fractureSymptoms consistent with right distal gluteus medius tear with weakness and greater trochanter contusion and bursitis.We discussed further treatment options and alternatives including obtaining MRI for further evaluation.Plan:-Start physical therapy with a focus on gluteus medius strengthening program.-Pain control as needed with Tylenol. - Ice 15 minutes at a time, 3-4 times a day-Minimize painful activities.Follow- upin 6 weeksAll the questions were appropriately, he expressed nrxpajxnvmcodB82.27 Body mass index (BMI) 27.0-27.9, adultComments:Weight loss will be helpful. Diet plus exercise better than either alone Functional Status Description No Information Available Mental Status Description No Information Available Referrals Refer to Reason for Referral Status Appt Date Roel Amaya MD Received Complete 08/25/2019 [address] [place] [id number] [phone]
--- OUTSIDE RECORDS SUMMARY | 2019-11-21 07:19 | XMS REPORT | Continuity of Care Document ---
:1965 External Reference #:[id number] Author Name Eben Rodriguez MD Address [address] [place] [address] Care Team Providers Name Role Phone Eben Rodriguez MD - Family Medicine Care Team Information Corporate Sales Trainer Problems Active Problems Provider Date Precordial pain Guillermo Diaz MD, PhD Onset: 02/27/2014 Hereditary hemochromatosis Donavon Castaneda DO Onset: 06/12/2017 Iron deficiency Donavon Castaneda DO Onset: 06/12/2017 Polycythemia vera (clinical) Donavon Castaneda DO Onset: 06/12/2017 Secondary polycythemia Donavon Castaneda DO Onset: 04/25/2018 Screening for malignant neoplasm of Keshia Bailey M.D. Onset: 11/01/2018 prostate Acquired renal cystic disease Keshia Bailey M.D. Onset: 11/01/2018 Kidney stone Keshia Bailey M.D. Onset: 11/01/2018 Benign prostatic hyperplasia Keshia Bailey M.D. Onset: 11/01/2018 Myalgia, unspecified site Sidra Chaudhari DO Onset: 09/03/2019 Dyspnea Roel Amaya M.D., Onset: 07/21/2019 FACC Chest pain Roel Amaya M.D., Onset: 07/21/2019 FACC Palpitations Roel Amaya M.D., Onset: 07/21/2019 FAC Social History Type Date Description Comments Sex Unknown Tobacco Use Start: Unknown Never Smoked Cigarettes ETOH Use Currently consumes alcohol socially Tobacco Use Start: Unknown Patient denies history of smoking Recreational Drug Use Denies Drug Use Smoking Status Reviewed: 10/02/19 Patient denies history of smoking Enjoy Exercising Patient enjoys exercising Allergies, Adverse Reactions, Alerts Active Allergies Reaction Severity Comments Date Augmentin 07/08/2013 Bactrim 06/12/2017 Cefzil 06/12/2017 Acetaminophen / Aspirin 06/12/2017 Aminophylline / Quinine 06/12/2017 Medications Active Medications SIG Qnty Indications Ordering Provider Date Sodium Chloride prn Unknown 0.9% Solution Nasonex 2 spray each Unknown 50mcg/Act nostril two times Suspension a day Advair HFA as needed Unknown 45-21mcg/Act Aerosol Ventolin HFA take 2 puffs every Unknown 6 hours as needed 108(90Base) mcg/Act for shortness of Aerosol breath. History Medications Sildenafil Citrate as directed as 30tabs Keshia Bailey, 05/15/2019 - Unknown needed M.D. 20mg Tablets Immunizations Description No Information Available Vital Signs Date Vital Result Comment 10/02/2019 10:41am BP Systolic 115 mmHg BP Diastolic 75 mmHg Body Temperature 98.3 F Heart Rate 67 /min Respiratory Rate 16 /min Height 68 inches 5'8" Weight 180.00 lb BMI (Body Mass Index) 27.4 kg/m2 BSA (Body Surface Area) 1.95 m2 [place] body weight in kilograms 70 kg 09/03/2019 9:01am BP Systolic 129 mmHg BP Diastolic 74 mmHg Body Temperature 98.4 F Heart Rate 66 /min Respiratory Rate 16 /min Weight 184.00 lb Pain Level 3 joints O2 % BldC Oximetry 97 % Results Test Acquired Date Facility Test Result H/L Range Note CBC 09/03/2019 [facility] White Blood 8.4 K/uL Normal 3.4-10.5 1 W/Automated [address] [place] [address] [phone] Red Blood Count 5.61 M/uL Normal 4.20-5.80 Hemoglobin 16.9 gm/dL Normal 12.8-17.0 Hematocrit 50.1 % High 38.0-48.0 Mean Cell Volume 89.3 fl Normal 80.0-96.0 Mean Corpuscular HGB 30.1 pg Normal 27.0-33.0 Mean Corpuscular HGB Conc 33.7 g/dL Normal 31.7-36.0 Platelet Count 291 K/uL Normal 155-360 Red Cell Distri Width SD 39.7 fl Normal 36-51 Red Cell Distri Width %CV 12.1 % Normal 11.6-15.8 Mean Platelet Volume 9.5 fl Normal 6.6-10.6 Neut% 70.4 % Normal 33.0-73.0 Lymph % 16.5 % Low 20.0-42.0 [place] % 6.9 % Normal 0.0-10.0 Eo% 4.5 % Normal 0.0-6.6 Bas% 1.3 % High 0.0-1.1 Immature Grans 0.4 % Normal 0.0-5.0 NRBC % 0.0 /100WBC < 10/ 100 WBC Neut# 5.89 K/uL Normal 1.8-7.0 Lymph # 1.38 K/uL Normal 1.0-4.0 [place] # 0.58 K/uL Normal 0.0-0.8 Eos # 0.38 K/uL Normal 0.0-0.5 Baso # 0.11 K/uL High 0.0-0.1 Immature Grans Absolute 0.03 K/uL NRBC # 0.00 K/uL [facility] 09/03/2019 [facility] Glucose 94 mg/dL Normal 74-106 Metabolic Panel [address] [place] [address] [phone] BUN 19 mg/dL High 7-18 Creatinine 1.0 mg/dL Normal 0.6-1.3 Glom Filtration Rate, Estimate >60 mL/min >60 If >60 mL/min >60 2 BUN/Creat 19.0 ratio Sodium 139 mmol/L Normal 136-145 Potassium 4.0 mmol/L Normal 3.5-5.1 Chloride 109 mmol/L High 98-107 Carbon Dioxide 25 mmol/L Normal 21-32 Anion Gap 5 mEq/L Low 8-16 Calcium 9.1 mg/dL Normal 8.5-10.1 Total Protein 7.5 g/dL Normal 6.4-8.2 Albumin 3.9 g/dL Normal 3.4-5.0 Globulin 3.6 g/dL Normal 1.9-4.3 Alb/Glob 1.1 ratio Bilirubin,Total 0.3 mg/dL Normal 0.2-1.0 Sgot/Ast 15 U/L Normal 15-37 SGPT/Alt 28 U/L Normal 12-78 Alkaline Phosphatase 70 U/L Normal 45-117 Iron-Tibc-%Sat 09/03/2019 [facility] Serum Iron 68 g/dL Normal 65-[address] [place], [place] [id number] [phone] Total Iron Binding Capacity 329 g/dL Normal 250-450 Transferrin %Saturation 21 % Normal 12-57 Laboratory test 09/03/2019 [facility] Ferritin 112 ng/mL Normal 26-388 finding [address] [place] [address] [phone] Vitamin B12 And 09/03/2019 [facility] Vitamin B12 306 pg/mL Normal 193-986 Folate [address] [place], [place] [address] [phone] Folic Acid 14.5 ng/mL Normal 3.1-17.5 Laboratory 09/03/2019 [facility] Vitamin 24.4 Low 30.0-100.0 3 test finding [address] D,25-Hydroxy ng/[place] [address] [phone] Sedimentation Rate <pending> Rheumatoid Factor Screen < 10.0 IU/mL < 15.0 Antinuclear Antibodies, Ifa Negative . 4 Testosterone,Serum 264 ng/dL 264-916 5 LDH 159 U/L Normal 87-241 Sedimentation Rate,Manual 13 mm/hr Normal 0-20 Laboratory 05/12/2019 [facility] Testosterone,Serum 345 264-916 6, 7 test finding [address] ng/dL [place], [place] [address] [phone] Laboratory 05/05/2019 [facility] Prostate Specific 1.88 < 4.0 8, 9 test finding [address] Antigen ng/[place] [address] [phone] 1 E83.110 N40.1 N40.2 E83.110 E53.9 2 Note: Persistent reduction for 3 months or more in an eGFR <60 mL/min/1.73 m2 defines CKD. Patients with eGFR values >/=60 mL/min/1.73 m2 may also have CKD if evidence of persistent proteinuria is present. The original MDRD equation for estimated GFR is not valid for patients less than 18 years of age. Additional information may be found at www.kdoqi.org. 3 Vitamin D deficiency has been defined by the [place] of Medicine and an Endocrine Society practice guideline as a level of serum 25-OH vitamin D less than 20 ng/mL (1,2). The Endocrine Society went on to further define vitamin D insufficiency as a level between 21 and 29 ng/mL (2). 1. IOM ([place] of Medicine). 2010. Dietary reference intakes for calcium and D. [place]: The National Academies Press. 2. Thomas MF, Chapo NC, Devon ZURITA, et al. Evaluation, treatment, and prevention of vitamin D deficiency: an Endocrine Society clinical practice guideline. JCEM. 2010; 96(7):1911-30. Performed at: [address] [id number] [employer]p Strategic Planning: Mabel Norris MD, Phone: [phone] 4 Negative <1:80 Borderline 1:80 Positive >1:80 Performed at: [address] [id number] [employer] Strategic Planning: Mabel Norris MD, Phone: [phone] 5 Adult male reference interval is based on a population of healthy nonobese males (BMI <30) between 19 and 39 years old. Travison, et.al. JCEM 2017,102;0949-6479. PMID: 94221411. 6 E29.1 7 Adult male reference interval is based on a population of healthy nonobese males (BMI <30) between 19 and 39 years old. Travison, et.al. JCEM 2017,102;4610-5954. PMID: 38255278. Performed at: [address] [id number] [employer]p Strategic Planning: Mabel Norris MD, Phone: [phone] 8 Z12.5 9 THIS ASSAY IS NOT INTENDED A CANCER SCREENING TEST The concentration of PSA in a given specimen, determined with assays from different manufacturers, can vary due to differences in assay methods and reagent specificity. Values obtained from different assay methods cannot be used interchangeably. Method: Siemens Teliris Dorothy Chemiluminescent immunoassay. Procedures Date Code Description Status 08/19/2019 52271 ECHO Transthoracic Inc Performance Continuous Completed Electrocardio 07/21/2019 62758 EKG-Tracing And Report Completed 05/26/2019 31677 Eye Exam Est Patient Comprehensive Completed Medical Devices Description No Information Available Encounters Type Date Location Provider Dx Diagnosis Office Visit 09/03/2019 Oncology Office Sherrie Chaudhari3.110 Hereditary 9:00a DO Sidra hemochromatosis D75.1 Secondary polycythemia N40.1 Benign prostatic hyperplasia with lower urinary tract symp M79.10 Myalgia, unspecified site Office Visit 08/25/2019 3:00p Cardiology Office Ollie R07.9 Chest pain, Marlyss B., PA unspecified R00.2 Palpitations Z82.49 Family hx of ischem heart dis and oth dis of the circ sys Office Visit 07/21/2019 2:20p Cardiology Office Roel Amaya R00.2 Palpitations Brooks Spangler, FACC R07.9 Chest pain, unspecified R06.02 Shortness of breath Office Visit 05/15/2019 3:45p Urology Juan Forrest, N28.1 Cyst of kidney, PA acquired N40.2 Nodular prostate without lower urinary tract symptoms N52.1 Erectile dysfunction due to diseases classified elsewhere Assessments Date Code Description Provider 10/02/2019 Z13.6 Encounter for screening for Eben Rodriguez MD cardiovascular disorders 10/02/2019 E83.110 Hereditary hemochromatosis Eben Rodriguez MD 10/02/2019 D75.1 Secondary polycythemia Eben Rodriguez MD 10/02/2019 Z13.1 Encounter for screening for diabetes Eben Rodriguez MD mellitus 10/02/2019 Z13.29 Encounter for screening for other Eben Rodriguez MD suspected endocrine disorder 10/02/2019 Z00.01 Encounter for general adult medical Eben Rodriguez MD examination with abnormal findings 10/02/2019 E66.3 Overweight Eben Rodriguez MD 10/02/2019 Z23 Encounter for immunization Eben Rodriguez MD 09/03/2019 E83.110 Hereditary hemochromatosis Sidra Chaudhari DO 09/03/2019 D75.1 Secondary polycythemia Sidra Chaudhari DO 09/03/2019 N40.1 Benign prostatic hyperplasia with Sidra Chaudhari DO lower urinary tract sympto 09/03/2019 M79.10 Myalgia, unspecified site Sidra Chaudhari DO 08/25/2019 R07.9 Chest pain, unspecified Garima Levin PA 08/25/2019 R00.2 Palpitations Garima Levin PA 08/25/2019 Z82.49 Family history of ischemic heart Garima Levin PA disease and other diseases of the circulatory system 08/19/2019 R07.9 Chest pain, unspecified Roel Amaya M.D., [facility] 08/19/2019 R00.2 Palpitations Roel Amaya M.D., [facility] 07/21/2019 R00.2 Palpitations Roel Amaya M.D., [facility] 07/21/2019 R07.9 Chest pain, unspecified Roel Amaya M.D., [facility] 07/21/2019 R06.02 Shortness of breath Roel Amaya M.D., [facility] 05/26/2019 H43.811 Vitreous degeneration, right eye Nato Cochran MD 05/15/2019 N28.1 Cyst of kidney, acquired Juan Forrest PA 05/15/2019 N40.2 Nodular prostate without lower Juan Forrest PA urinary tract symptoms 05/15/2019 N52.1 Erectile dysfunction due to diseases Juan Forrest PA classified elsewhere Plan of Treatment Future Appointment(s):11/14/2019 3:00 pm - Juan Forrest PA at [id number] 8:30 am - Sidra Chaudhari DO at Oncology Bjqrdi6203/04/2020 8:15 am - Oncology Nurse at Oncology Ccfzpw3008/24/2020 3:10 pm - Garima Levin PA at Cardiology Inwdbd2510/02/2019 - Eben Rodriguez MDZ13.6 Encounter for screening for cardiovascular disordersNew Labs:LDL Cholesterol Profile, Ordered: E83.110 Hereditary caonasbahepicpzZ47.1 Secondary tifnfcqwqyifW42.1 Encounter for screening for diabetes mellitusNew Labs:Glycohemoglobin A1c, Ordered: Z13.29 Encounter for screening for other suspected endocrine disorderNew Labs: T7/TSH, Ordered: 10/02/19Z00.01 Encounter for general adult medical examination with abnormal vexxghgwW99.3 HmstjcfikvV14 Encounter for immunizationImmunizations/Injections:Pneumococcal Conjugate Vaccine 13 Valent For Intramuscular UsePneumovax Injection Functional Status Functional Condition Comment Date Status Independent with all ADL's Active Glasses Active Mental Status Description No Information Available Referrals Refer to Reason for Referral Status Appt Date [facility] - brittany od - in setting of lattice - Closed i do no appreciate definitive break, but would like them to eval further - can we do tomorrow morning? thanks [facility] [address] [place] [address] [phone]
[2019-11-21 07:30] VITALS: BP 128/78
--- NOTE | 2019-11-21 07:46 | UC ---
Throat Pain/Nasal Eugenio HPI - HPI Summary HPI Summary: 53 yo male asthmatic with sinus pressure and pain x 2 weeks chest starting to get tight Dr. Malcolm is his ENT no f/c no n/v/d no sob - History of Current Complaint Chief Complaint: UCRespiratory Stated Complaint: SINUS Time Seen by Provider: 11/21/19 07:35 Hx Obtained From: Patient Onset/Duration: Gradual Onset, Lasting Weeks Severity: Moderate Pain Intensity: 3 Pain Scale Used: 0-10 Numeric Cough: Nonproductive Associated Signs & Symptoms: Positive: Sinus Discomfort, Nasal Discharge - Epiglottits Risk Factors Epiglottis Risk Factors: Negative - Allergies/Home Medications Allergies/Adverse Reactions: Allergies Allergy/AdvReac Type Severity Reaction Status Date / Time amoxicillin [From Augmentin] Allergy Hives Verified 11/21/19 07:19 aspirin Allergy Congestion-Pt Verified 11/21/19 07:19 can tolerate at low dose cefprozil Allergy Unknown Verified 11/21/19 07:19 Reaction Details clavulanic acid Allergy Hives Verified 11/21/19 07:19 [From Augmentin] ibuprofen Allergy Unknown Verified 11/21/19 07:19 Reaction Details levofloxacin [From Levaquin] Allergy tendinitis Verified 11/21/19 07:19 sulfamethoxazole Allergy Swelling Verified 11/21/19 07:19 [From Bactrim] trimethoprim [From Bactrim] Allergy Swelling Verified 11/21/19 07:19 Home Medications: Home Medications Albuterol HFA INHALER* [Ventolin HFA Inhaler*] 1 - 2 puff INH Q4H PRN 07/16/16 [ History Confirmed 11/21/19] Magnesium Oxide 400 mg PO DAILY PRN 07/26/17 [History Confirmed 11/21/19] Mometasone Furoate [Nasonex] 2 spray BOTH NARES DAILY 09/20/18 [History Confirmed 11/21/19] Fluticas/Salmet 230/21 HFA(NF) [Advair HFA 23O/21 (NF)] 2 puff INH BID 01/30/19 [History Confirmed 11/21/19] Propylene Glycol/Peg 400/Pf [Systane Ultra 0.4-0.3% Eye Drp] 1 drop BOTH EYES BID 01/30/19 [History Confirmed 11/21/19] Cyanocobalamin (Vitamin B-12) [Vitamin B-12] 1,000 mcg SL 11/21/19 [History] DOXYcycline CAP(*) [DOXYcycline 100MG CAP(*)] 100 mg PO BID #28 cap 11/21/19 [Rx ] Fluticasone NASAL SPRAY 50MCG* [Flonase NASAL SPRAY 50MCG*] 2 spray BOTH NARES DAILY 11/21/19 [History Confirmed 11/21/19] predniSONE 20 mg TAB [Deltasone 20 MG TAB*] 40 mg PO DAILY #10 tab 11/21/19 [Rx] PMH/Surg Hx/FS Hx/Imm Hx Previously Healthy: Yes Respiratory History: Asthma - Surgical History Surgical History: Yes Surgery Procedure, Year, and Place: sinus surgery, bilateral FESS surgeries for sinus, deviated septum, umb. hernia repair, lt shoulder surgery LABRAL REPAIR ; undescended testicle;LASIK EYE SURGERY, right EYE IMPLANT (INTACS LENS IMPLANT)SCANNED INTO OTHER FACILITIES REPORTS-SPOKE TO DR LAUGHLIN, HE SAID TO GET ORBIT XRAYS TO BE SURE BUT THINKS ITS AND ACRYLIC SUBSTANCE. ( XRAYS DONE - CLEARED BY DR COLON) - Family History Known Family History: Positive: Cardiac Disease Negative: Respiratory Disease - Social History Alcohol Use: Rare Alcohol Amount: WEEKENDS Substance Use Type: Marijuana Substance Use Comment - Amount & Last Used: edibles Smoking Status (MU): Never Smoked Tobacco Have You Smoked in the Last Year: No Household Exposure Type: Cigarettes - Immunization History Most Recent Influenza Vaccination: June 2016 Most Recent Tetanus Shot: 05/18/17 Vaccination Up to Date: No Review of Systems All Other Systems Reviewed And Are Negative: Yes Constitutional: Positive: Fatigue Skin: Positive: Negative Eyes: Positive: Negative ENT: Positive: Nasal Discharge, Sinus Congestion, Sinus Pain/Tenderness Respiratory: Positive: Cough Cardiovascular: Positive: Negative Gastrointestinal: Positive: Negative Genitourinary: Positive: Negative Motor: Positive: Negative Neurovascular: Positive: Negative Musculoskeletal: Positive: Negative Neurological/Mental Status: Positive: Negative Psychological: Positive: Negative Physical Exam Triage Information Reviewed: Yes Appearance: Well-Appearing, No Pain Distress, Well-Nourished Vital Signs: Initial Vital Signs Temp 97.7 F 11/21/19 07:23 Pulse 53 11/21/19 07:23 Resp 16 11/21/19 07:23 BP 128/78 11/21/19 07:23 Pulse Ox 98 11/21/19 07:23 Vital Signs Reviewed: Yes Eyes: Positive: Conjunctiva Clear ENT: Positive: Hearing grossly normal, Nasal congestion, Nasal drainage, TMs normal, Sinus tenderness, Uvula midline. Negative: Tonsillar swelling, Tonsillar exudate, Trismus, Muffled voice, Hoarse voice, Dental tenderness Dental Exam: Normal Neck: Positive: Supple, Nontender, No Lymphadenopathy Respiratory: Positive: Normal breath sounds, No respiratory distress, No accessory muscle use, Wheezing - forced expiration Cardiovascular: Positive: RRR Abdomen Description: Positive: Nontender Bowel Sounds: Positive: Present Musculoskeletal Exam: Normal Musculoskeletal: Positive: ROM Intact, No Edema Neurological: Positive: Alert Psychological Exam: Normal Skin Exam: Normal Throat Pain/Nasal Course/Dx - Differential Dx/Diagnosis Provider Diagnosis: Acute sinusitis with symptoms > 10 days Discharge ED - Sign-Out/Discharge Documenting (check all that apply): Patient Departure All imaging exams completed and their final reports reviewed: No Studies - Discharge Plan Condition: Stable Disposition: HOME Prescriptions: DOXYcycline CAP(*) [DOXYcycline 100MG CAP(*)] 100 mg PO BID #28 cap predniSONE 20 mg TAB [Deltasone 20 MG TAB*] 40 mg PO DAILY #10 tab Patient Education Materials: Sinusitis (ED) Referrals: Eben Rodriguez MD [Primary Care Provider] - If Needed Additional Instructions: increase flonase to twice daily use rescue inhaler if you need to - Billing Disposition and Condition Condition: STABLE Disposition: Home
== END 2019-11-21 07:45 | disposition home or self-care (01) ==
LOC: UCCORT 07:09
DX: J01.90 Acute sinusitis, unspecified (principal); J45.909 Unspecified asthma, uncomplicated; Z88.6 Allergy status to analgesic agent; Z88.1 Allergy status to other antibiotic agents; Z88.0 Allergy status to penicillin; Z88.2 Allergy status to sulfonamides
CPT/HCPCS: 99212; G0463